=== PATIENT | male | born 1945 | race Caucasian/White ===

== ENCOUNTER → 2017-12-11 10:38 | Outpatient (CLI) | payer MEDICARE, SELFPAY ==
--- NOTE | 2017-12-11 10:45 | XR_ITS ---
EXAM: XR lumbar spine min 4V HISTORY: ITS.REASON: LOW BACK PAIN ORDERING PHYSICIAN: Bobby Young PATIENT AGE: 72 years COMPARISON: None FINDINGS: Normal alignment. No lytic or blastic change. There is degenerative disc disease at L3-L4, L4-L5, and L5-S1 worse at L4-5 with mild retrolisthesis of L4 approximately 3 mm. There is mild wedging of L1 anteriorly. This is slightly greater along the right lateral aspect of L1. There is mild sclerosis of the SI joints. Mild sclerosis involves L5-S1 facets. IMPRESSION: Degenerative disc disease worse at L4-L5. Mild wedging of L1 age indeterminate. Mild facet arthritic change L5-S1
== END ==
PROVIDERS: PCP Internal Medicine; Visit Provider Internal Medicine
DX: M54.5 Low back pain (principal)
CPT/HCPCS: 72110

== ENCOUNTER → 2019-03-01 15:09 | Outpatient (CLI) | payer MEDICARE, SELFPAY ==
--- NOTE | 2019-03-01 15:15 | XR_ITS ---
XR chest 2V HISTORY: ITS.REASON: FEVER..COUGH ORDERING PHYSICIAN: Bobby Young PATIENT AGE: 73 years COMPARISON: None FINDINGS: The cardiomediastinal silhouette and pulmonary vascularity are within normal limits. Right hemidiaphragm is elevated with atelectatic changes in the right middle lobe. Left lung is clear. No acute bony findings. IMPRESSION: Elevated right hemidiaphragm with right middle lobe atelectasis
== END ==
PROVIDERS: PCP Internal Medicine; Visit Provider Internal Medicine
DX: R50.9 Fever, unspecified (principal); R05 Cough
CPT/HCPCS: 71046

== ENCOUNTER → 2019-04-13 14:36 | Outpatient (CLI) | payer MEDICARE, SELFPAY ==
--- NOTE | 2019-04-13 14:45 | XR_ITS ---
XR chest 2V HISTORY: Follow-up pneumonia ITS.REASON: S/P PNEUMONIA ORDERING PHYSICIAN: Bobby Young PATIENT AGE: 73 years COMPARISON: 03/01/2019 FINDINGS: The cardiomediastinal silhouette and pulmonary vascularity are within normal limits. Atelectatic changes remain in the right middle lobe with elevated right hemidiaphragm.. No acute bony abnormalities. IMPRESSION: Persistent right middle lobe volume loss with elevated hemidiaphragm. CT with contrast may be of further value to exclude central obstructing lesion
== END ==
PROVIDERS: PCP Internal Medicine; Visit Provider Internal Medicine
DX: J18.9 Pneumonia, unspecified organism (principal)
CPT/HCPCS: 71046

== ENCOUNTER → 2019-04-18 10:21 | Outpatient (CLI) | payer MEDICARE, SELFPAY ==
[2019-04-18 10:42] LABS: Blood Urea Nitrogen 12 mg/dL (7-18); Creatinine,Serum 1.28 mg/dL (0.70-1.30); Estimated Glomerular Filt Rate 55 ml/min (>60); GFR (African American) 66 ML/MIN (>60)
--- NOTE | 2019-04-18 11:10 | CT_ITS ---
CT chest w con HISTORY: ITS.REASON: RT MIDDLE LOBE LUNG COLLAPSE ORDERING PHYSICIAN: Bobby Young PATIENT AGE: 73 years COMPARISON: 04/13/2019 TECHNIQUE: Axial images obtained following the administration of 75 mL of Optiray 350 . Sagittal, and coronal reformatted images are also generated and reviewed. All CT scans at the facility use one or more dose reduction, viz: automated exposure control, ma/kV adjustment per patient size (including targeted exams where dose is matched to indication, i.e. head), or iterative reconstruction technique. FINDINGS: No mediastinal or hilar mass is evident. There is moderate thickening of the pericardium measuring up to 2.4 cm consistent with pericardial effusion. No evidence of aortic aneurysm or dissection or central pulmonary embolus. The right hemidiaphragm is elevated with atelectatic changes noted in the right middle lobe. No central obstructing lesion is identified. There is some mild bronchial thickening noted in the right middle lobe bronchi. There is a small air cyst in the right lung base posteriorly at 7 mm. There is a 5 mm nodule along the posterior aspect of the right major fissure centrally with an additional 5 mm nodule noted just medial to this region along the major fissure. These are probably benign. A 4 mm nodule present in the left upper lobe medially nonspecific. There is a 6 mm nodule along the left major fissure superiorly. Calcified nodule present in the left upper lobe posteriorly. There is an additional noncalcified 6 mm nodule in the superior segment of left lower lobe and there is a 4 mm noncalcified nodule in the lingula laterally. IMPRESSION: 1. Moderate-sized pericardial effusion. 2. Atelectatic changes of the right middle lobe with mild bronchial thickening of the right middle lobe bronchi. 3. Multiple bilateral pulmonary nodules from 4 to 6 mm as described above. Most of these are along the fissure and may represent fissural lymph nodes. Recommend 6 month follow-up.
== END ==
PROVIDERS: PCP Internal Medicine; Visit Provider Internal Medicine
DX: J98.19 Other pulmonary collapse (principal)
CPT/HCPCS: 36415; 71260; 82565; 84520; Q9967

== ENCOUNTER → 2019-05-03 12:54 | Outpatient (CLI) | payer MEDICARE, SELFPAY ==
--- NOTE | 2019-05-03 13:06 | CA_ITS ---
PROCEDURE: 2-D M-mode and color Doppler study INDICATIONS FOR THE TEST: Chest pain COPD Heart Murmur Tobacco Smoking+ Palpitations Fatigue Syncope Edema Hypertension Diabetes Mellitus+ Rheumatic Fever SOB+FUENTES Obesity Hyperlipidemia Family History HD Additional History PATIENT INFORMATION HEIGHT: 71 WEIGHT:178 GENDER: Male B/P: 2-D/M-MODE INTERPRETATION: 2-D MEASUREMENTS OBSERVED VALUES IN CMS Right Ventricular Dimension (RVDd) 3.0 Interventricular Septum (Thickness)(IVsd) 1.1 Left Ventricular Internal Dimensions(LVIDd) 4.5 Left Ventricular Posterior Wall (Thickness)(LVPWd) 0.9 Aortic Root 3.7 Aortic Cusp Separation 2.0 Left Atrial Dimensions (LAD) 4.1 2D 1. Left atrium is mildly enlarged, left ventricle is normal size, there is mild qualitative concentric left ventricular hypertrophy, visually estimated ejection fraction 55% with no regional wall motion abnormality. 2. The right atrium and ventricle are mildly enlarged with normal contractility. 3. The aortic valve is minimally thickened and fibrosed. 4. The mitral and tricuspid valve are grossly normal. 5. The pulmonic valve is poorly present. 6. There is moderate size circumferential pericardial effusion, there is organized thrombus material seen in the pericardial effusion . DOPPLER INTERROGATION: Doppler interrogation of the aortic, mitral and tricuspid presence of mild mitral and tricuspid regurgitation, tricuspid regurgitation jet velocity is inadequate for calculation of the right ventricular systolic pressure, grade 1 diastolic dysfunction seen without tissue Doppler evidence of raised left atrial pressure. Inferior vena cava is not well visualized. The mitral and tricuspid inflow velocities not suggestive of raised intrapericardial pressure. CONCLUSION: 1. Mildly enlarged left atrium, normal left ventricular size, mild qualitative concentric left ventricular hypertrophy visually estimated ejection fraction 55% with no regional wall motion abnormality, grade 1 diastolic dysfunction seen without tissue Doppler evidence of raised left atrial pressure. 2. Mild mitral and tricuspid regurgitation 3. Moderate-sized circumferential pericardial effusion noted as described above, without obvious Doppler evidence of raised intrapericardial pressure. Inferior vena cava is not well visualized.
== END ==
PROVIDERS: PCP Internal Medicine; Visit Provider Internal Medicine
DX: I31.3 Pericardial effusion (noninflammatory) (principal)
CPT/HCPCS: 93306

== ENCOUNTER → 2019-08-11 17:54 | Outpatient (CLI) | payer MEDICARE, SELFPAY ==
[2019-08-11 18:51] LABS: Basophils # 0.1 K/mm3 (0-0.2); Eosinophils # 0.2 K/mm3 (0.0-0.4); Eosinophils % 3.9 % (0.1-12.0); Hematocrit 45.9 % (42.0-52.0); Hemoglobin 14.6 g/dL (14.1-18.0); Lymphocytes # 1.6 K/mm3 (0.7-4.5); Lymphocytes % 26.4 % (10-50); Mean Corpuscular HGB Conc 31.8 g/dL (31.8-35.4); Mean Corpuscular Hemoglobin 29.9 pg (27.0-31.2); Mean Platelet Volume 8.4 fl (7.4-10.4); Monocytes # 0.4 K/mm3 (0.1-1.0); Monocytes % 6.7 % (1.7-9.3); Neutrophils # 3.8 K/mm3 (1.8-7.8); Platelet Count 362 K/mm3 (142-424); Red Blood Count 4.88 M/mm3 (4.60-6.20); Red Cell Distribution Width 13.5 % (11.5-17.5); White Blood Count 6.1 K/mm3 (4.8-10.8)
[2019-08-11 19:08] LABS: Alanine Aminotransferase 17 U/L (12-78); Albumin Level 3.8 gm/dL (3.4-5.0); Albumin/Globulin Ratio 1.4 (1.1-1.8); Alkaline Phosphatase 72 U/L (46-116); Anion Gap 11.3 mEq/L (5-15); Aspartate Amino Transferase 17 U/L (15-37); Bilirubin,Total 0.7 mg/dL (0.2-1.0); Blood Urea Nitrogen 12 mg/dL (7-18); Carbon Dioxide 30 mmol/L (21.0-32.0); Chloride 103 mmol/L (98-107); Creatinine,Serum 1.35 mg/dL (0.70-1.30); Estimated Glomerular Filt Rate 52 ml/min (>60); GFR (African American) 63 ML/MIN (>60); Globulin 2.7 gm/dl (1.3-3.2); Glucose 185 mg/dL (74-106); Potassium 3.3 mmoL/L (3.5-5.1); Sodium 141 mmol/L (136-145); T4 (Thyroxine) 8.8 ug/dl (4.7-13.3); Thyroid Stimulating Hormone 4.55 uIU/ml (0.358-3.740); Total Protein,Serum 6.5 gm/dL (6.4-8.2)
[2019-08-13 12:26] LABS: PSA, Free 0.12 ng/mL; Prostate Specific Ag 0.4 ng/mL (0.0-4.0); Vitamin D 25 Hydroxy 23.3 ng/mL (30.0-100.0)
== END ==
PROVIDERS: Visit Provider Nurse Practitioner Family
DX: Z00.00 Encounter for general adult medical examination without abnormal findings (principal); R53.83 Other fatigue; N40.0 Benign prostatic hyperplasia without lower urinary tract symptoms; E11.9 Type 2 diabetes mellitus without complications; R60.0 Localized edema; E55.9 Vitamin D deficiency, unspecified
CPT/HCPCS: 80053; 82652; 84153; 84154; 84436; 84443; 85025

== ENCOUNTER → 2019-12-07 14:29 | Outpatient (CLI) | payer MEDICARE, BC, SELFPAY ==
--- NOTE | 2019-12-07 14:33 | XR_ITS ---
PROCEDURE: XR CHEST 2V CLINICAL HISTORY: SOA COMPARISON: CHESTW CT chest w con from 04/18/2019 FINDINGS: The cardiomediastinal silhouette and pulmonary vascularity are within normal limits. The right hemidiaphragm is elevated with atelectatic change in the right lung base and bowel interposition the right. No lobar consolidation or collapse. The No acute bony abnormalities. IMPRESSION: Elevated right hemidiaphragm with right basilar atelectasis Dictated by: Randy Su MD 12/07/2019 15:10 Electronically signed by Randy Su MD in [place] 12/07/2019 15:10
== END ==
PROVIDERS: PCP Emergency Medicine; Visit Provider Nurse Practitioner Family
DX: R06.02 Shortness of breath (principal)
CPT/HCPCS: 71046

== ENCOUNTER 2020-09-02 11:49 | Observation (INO) | payer MEDICARE, BC, SELFPAY ==
--- NOTE | 2020-09-02 11:44 | ECG_ITS ---
APPROVED REPORT Exam: Resting ECG HR:55 bpm ECG Measurements Heart Rate 55 AXES ID 176 P 56 QRSd 94 QRS -58 QT 428 T 8 QTc 409 Conclusion Sinus bradycardia Left axis deviation,LAHB Low voltage QRS Nonspecific ST and T wave abnormality Abnormal ECG Electronically signed by : Bobby Young, 09/07/2020 11:34:54
[2020-09-02 11:54] VITALS: BP 134/71; PULSE 54; RESP 17; TEMP 36.6; O2SAT 98; BMI 24.0
--- NOTE | 2020-09-02 11:56 | XR_ITS ---
PROCEDURE: XR CHEST 2V CLINICAL HISTORY: CHEST PAIN COMPARISON: CT CHESTW CT chest w con from 04/18/2019 CR XR CHEST 2V from 12/07/2019 FINDINGS: The cardiomediastinal silhouette and pulmonary vascularity are within normal limits. The lungs are clear without infiltrates, suspicious nodules, or pleural effusions. 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 There is minimal right basilar atelectasis or scarring. No acute bony abnormalities. IMPRESSION: No acute findings. Dictated by: Dr. Milton Kaur MD 09/02/2020 14:42 Dr. Milton Kaur MD in [place] 09/02/2020 14:42
--- NOTE | 2020-09-02 12:02 | HMH.EDCP ---
ED Disposition Clinical Impression: Atypical chest pain Diabetes Qualifiers: Diabetes mellitus type: type 1 Diabetes mellitus complication status: without complication Qualified Code(s): E10.9 - Type 1 diabetes mellitus without complications Disposition: Admitted As Inpatient Condition on Discharge: Fair - Critical Care Critical Care Time: No Attestation: On , the high probability of a clinically significant, sudden or life threatening deterioration of the following system(s) required my full and direct attention, intervention and personal management. The time I documented below is in addition to time spent performing reported procedures but includes the following listed in this critical care notation. Medical Decision Making - Medical Records Medical records reviewed: Yes: I reviewed the patient's medical records. - Richard Inquiry Pt receiving controlled substance: No Vital Signs: 09/02/20 11:54 09/02/20 12:58 Temperature 97.8 F Temperature Source Oral Pulse Rate [Right Radial] 54 L 59 L Respiratory Rate 17 18 Blood Pressure [Right Arm] 134/71 125/56 L Blood Pressure Mean [Right Arm] 92 79 Blood Pressure Source [Right Arm] Automatic Cuff Blood Pressure Position [Right Arm] Sitting 02 Sat by Pulse Oximetry 98 97 Oxygen Delivery Method Room Air - Lab Data Lab Results 09/02/20 11:55: WBC 13.5 H, RBC 5.09, Hgb 15.2, Hct 46.0, MCV 90.3, MCH 29.9, MCHC 33.1, RDW 13.9, Plt Count 370, MPV 7.6, Neut % (Auto) 81.6 H, Lymph % (Auto) 12.6, [place] % (Auto) 4.7, Eos % (Auto) 0.6, Baso % (Auto) 0.6, Neut # (Auto) 11.0 H, Lymph # (Auto) 1.7, [place] # (Auto) 0.6, Eos # (Auto) 0.1, Baso # (Auto) 0.1 09/02/20 11:55: Sodium 137, Potassium 3.0 L, Chloride 97 L, Carbon Dioxide 31 H, Anion Gap 12.0, BUN 17, Creatinine 1.30 H, Estimated Creat Clear 54, Estimated GFR 54 L, Est GFR ( Amer) 65, Glucose 172 H, Calcium 9.6, Total Bilirubin 0.6, AST 31, ALT 16, Alkaline Phosphatase 87, Troponin I < 0.01, Total Protein 7.1, Albumin 4.2, Globulin 2.9, Albumin/Globulin Ratio 1.4 09/02/20 11:55: NT-Pro-B Natriuret Pep 134 09/02/20 11:55: PT 10.8, INR 0.97, APTT 23.6 Result diagrams: 09/02/20 11:55 09/02/20 11:55 Orders (Tests/Meds): ED MEDICATIONS Generic Name Dose Route Start Last Admin Trade Name Freq PRN Reason Stop Dose Admin Nitroglycerin 0.4 mg 09/02/20 12:01 Nitroglycerin 0.4mg Sl Tablet SL 10/02/20 12:00 Q5MINP PRN Chest Pain Discontinued Medications Generic Name Dose Route Start Last Admin Trade Name Freq PRN Reason Stop Dose Admin Aspirin 324 mg 09/02/20 11:57 09/02/20 12:00 Aspirin 81mg Chewable Tablet PO 09/02/20 11:58 324 mg ONCE ONE Administration ORDERS Category Date Time Status XR chest 2V Stat Exams 09/02/20 11:56 Taken Covid-19 IgG/IgM ([facility]) Stat Lab 09/02/20 12:55 Ordered Troponin I Q3H Lab 09/02/20 15:00 Ordered Troponin I Q3H Lab 09/02/20 18:00 Ordered - ECG Data Tracing #1 Bradycardic rate of 55 bpm. Normal MO interval of 176 ms. Normal QTC. For interpretation was sinus bradycardia, left axis deviation, nonspecific ST changes ECG initial impression date: 09/02/20 ECG initial impression time: 11:46 - Reevaluation(s) Time: 13:08 Reevaluation #1: Reevaluation, patient does endorse some chest pain still. Patient is moderate risk for acute coronary syndrome. Patient will be admitted to the hospital for further evaluation and treatment. Medical Decision Narrative: 73-year-old male presented to the emergency department with chest discomfort. Patient is moderate risk for acute coronary syndrome based on heart score. Aspirin and nitroglycerin were administrated. Work-up initiated. Chest Pain HPI - General Chief Complaint: Chest Pain Stated Complaint: Chest Pain Time Seen by Provider: 09/02/20 12:00 Mode of Arrival: Ambulatory Limitations: No Limitations Description of Symptoms (Recalled from ER Triage Doc. by RN): PT JOELLE
[2020-09-02 12:14] LABS: Basophils # 0.1 K/mm3 (0-0.2); Basophils % 0.6 % (0.1-2.0); Eosinophils # 0.1 K/mm3 (0.0-0.4); Eosinophils % 0.6 % (0.1-12.0); Hemoglobin 15.2 g/dL (14.1-18.0); Lymphocytes # 1.7 K/mm3 (0.7-4.5); Lymphocytes % 12.6 % (10-50); Mean Corpuscular HGB Conc 33.1 g/dL (31.8-35.4); Mean Corpuscular Hemoglobin 29.9 pg (27.0-31.2); Mean Corpuscular Volume 90.3 fl (80-94); Mean Platelet Volume 7.6 fl (7.4-10.4); Monocytes # 0.6 K/mm3 (0.1-1.0); Monocytes % 4.7 % (1.7-9.3); Neutrophils % 81.6 % (37.0-80.0); Platelet Count 370 K/mm3 (142-424); Red Blood Count 5.09 M/mm3 (4.60-6.20); Red Cell Distribution Width 13.9 % (11.5-17.5); White Blood Count 13.5 K/mm3 (4.8-10.8)
[2020-09-02 12:15] LABS: Chloride 97 mmol/L (98-107); Sodium 137 mmol/L (136-145)
[2020-09-02 12:18] LABS: Alanine Aminotransferase 16 U/L (12-78); Albumin Level 4.2 g/dl (3.5-5.0); Albumin/Globulin Ratio 1.4 (1.1-1.8); Alkaline Phosphatase 87 U/L (38-126); Aspartate Amino Transferase 31 U/L (17-59); Bilirubin,Total 0.6 mg/dl (0.2-1.3); Blood Urea Nitrogen 17 mg/dl (9-20); Calcium 9.6 mg/dl (8.4-10.2); Carbon Dioxide 31 mmol/L (22.0-30.0); Creatinine Clearance Estimated 54 mL/min (50-200); Estimated Glomerular Filt Rate 54 ml/min (>60); GFR (African American) 65 ML/MIN (>60); Globulin 2.9 g/dL (1.3-3.2); Glucose 172 mg/dl (74-100); Total Protein,Serum 7.1 g/dl (6.3-8.2)
[2020-09-02 12:28] LABS: NT Pro Brain Natriuretic Pep. 134 pg/mL (0-450); Prothrombin Time 10.8 seconds (9.4-11.8)
[2020-09-02 12:29] LABS: Activated Partial Thrombo Time 23.6 seconds (23.6-34.0); INR 0.97 (0.9-1.1)
[2020-09-02 12:31] LABS: Troponin I < 0.01 ng/ml (0.00-0.034)
[2020-09-02 12:58] VITALS: BP 125/56; PULSE 59; RESP 18; O2SAT 97
--- NOTE | 2020-09-02 13:05 | PC.NURSE ---
dr shyanne patterson
[2020-09-02 13:25] LABS: Coronavirus 19 IgG Antibody Negative (Negative); Coronavirus 19 IgM Antibody Negative (Negative)
[2020-09-02 14:20] VITALS: BP 132/78; PULSE 78; RESP 16; TEMP 36.6; O2SAT 98
[2020-09-02 14:23] VITALS: BP 109/61; PULSE 54; RESP 19; TEMP 36.7; O2SAT 97; BMI 24.3
--- NOTE | 2020-09-02 14:34 | HMH.HP ---
*Admission Date: 09/02/20 *Chief complaint: chest pain *History of present illness: This is a 73-year-old male presented to the emergency department with chest discomfort. Patient states that the pain started at about 5:00 this morning when he woke up. Still in nagging and located under his sternum. Patient states that it has persisted since then and increased in intensity. Feels like it is radiating down both arms. He has been nauseous and also vomited this morning. Patient did not take anything for the pain. No associated palpitations, difficulty breathing or hemoptysis. He is not having any fevers or chills. No headache or change in vision. No abdominal pain or diarrhea. from er narrative I spoke with ER admitting First troponin was negative EKG unimpressive Admitted as rule out. Marginal historian sees Dr Zamarripa Has had echo but no interventional studies [facility] History Medical History: Reports:: Asthma, BPH, Cancer, Congestive Heart Failure, Diabetes Mellitus Type 2, Gastroesophageal Reflux Disease(GERD), Kidney Stones, Myocardial Infarction Denies:: Atrial Fibrillation, Cerebrovascular Accident, Hyperlipidemia, Hypertension, Renal Disease *Have you ever received a pneumonia vaccine?: Yes *Have you received a flu vaccine this season?: No Other Medical History: Reports: Arthritis. Denies: Hypothyroidism, Thyroid Disease Other Surgeries: Yes: No Previous Surgery - *Social History Smoking Status: Never smoker Tobacco Type: smokeless tobacco Alcohol Intake: current Alcohol Intake Frequency:: a few times a month Substance Use Type: denies use *Occupational Status:: retired Household Members: none *Travel in the last 8 weeks: None Family Hx:: Cancer, Coronary Artery Disease Review of Systems - Constitutional Denies anorexia, Denies excessive sweating, Denies weakness - Eyes Denies change in vision - ENT Denies abnormal hearing, Denies dizziness - *Cardiovascular Reports chest pain, Denies shortness of breath with activity, Denies irregular heart rhythm, Denies radiating jaw, neck or arm pain - *Respiratory Denies chest congestion - *Gastrointestinal Denies abdominal pain - *Genitourinary Denies difficulty urinating - *Musculoskeletal Denies abnormal walking - Integumentary/Breasts Denies yellowing of the skin - *Neurologic Denies abnormal walking, Denies abnormal speech, Denies headache(s) - Psychiatric Denies change in appetite - Endocrine Denies excessive sweating, Denies rapid, pounding, or irregular heartbeat Meds Home Medications Medication Instructions Recorded Confirmed Type furosemide 40 mg tablet 40 mg PO DAILY PRN 30 Days #30 tab 08/11/19 09/02/20 Rx naproxen 500 mg tablet 500 mg PO BID PRN 30 Days #60 tab 08/11/19 09/02/20 Rx Cholecalciferol (Vitamin D3) 50,000 unit PO QWEEK 09/02/20 09/02/20 History [Vitamin D3 50,000 unit Cap] Cholecalciferol (Vitamin D3) 2,000 unit PO DAILY 09/02/20 09/02/20 History [Vitamin D3] Glimepiride See Rx Instructions .ROUTE .COMPLEX 09/02/20 09/02/20 History Isosorbide Mononitrate [Imdur 30mg See Rx Instructions .ROUTE .COMPLEX 09/02/20 09/02/20 History ER tablet] Allergies Allergy/AdvReac Type Severity Reaction Status Date / Time No Known Allergies Allergy Verified 09/02/20 11:56 Exam Vital signs and Labs for Last 24 Hours: Temp Pulse Resp BP Pulse Ox 98.1 F 54 L 19 109/61 L 97 09/02/20 14:23 09/02/20 14:23 09/02/20 14:23 09/02/20 14:23 09/02/20 14:23 Laboratory Results - last 24 hr 09/02/20 11:55: WBC 13.5 H, RBC 5.09, Hgb 15.2, Hct 46.0, MCV 90.3, MCH 29.9, MCHC 33.1, RDW 13.9, Plt Count 370, MPV 7.6, Neut % (Auto) 81.6 H, Lymph % (Auto) 12.6, [place] % (Auto) 4.7, Eos % (Auto) 0.6, Baso % (Auto) 0.6, Neut # (Auto) 11.0 H, Lymph # (Auto) 1.7, [place] # (Auto) 0.6, Eos # (Auto) 0.1, Baso # (Auto) 0.1 09/02/20 11:55: Sodium 137, Potassium 3.0 L, Chloride 97 L, Carbon Dioxide 31 H, Anion Gap 12.0,
--- NOTE | 2020-09-02 14:48 | HMH.PHAVTE ---
[facility] Pharmacy VTE Monitoring - Patient Demographics Admission date: 09/02/20 Report Date: 09/02/20 Time: 14:48 Allergies/Adverse Reactions: Patient Allergies No Known Allergies Allergy (Verified 09/02/20 11:56) Height: 1.8 m Weight: 79.18 kg Patient Problems: Current Active Problems Atypical chest pain (Acute) Diabetes (Acute) - VTE Risk Labs: VTE Related Lab Results Hgb 15.2 g/dL (14.1-18.0) 09/02/20 11:55 Hct 46.0 % (42.0-52.0) 09/02/20 11:55 Plt Count 370 K/mm3 (142-424) 09/02/20 11:55 PT 10.8 seconds (9.4-11.8) 09/02/20 11:55 INR 0.97 (0.9-1.1) 09/02/20 11:55 APTT 23.6 seconds (23.6-34.0) 09/02/20 11:55 BUN 17 mg/dl (9-20) 09/02/20 11:55 Creatinine 1.30 mg/dl (0.66-1.25) H 09/02/20 11:55 Estimated Creat Clear 54 mL/min (50-200) 09/02/20 11:55 Was VTE Risk Assessment Performed: Yes VTE Score: 5 VTE Risk Level: Low Risk - Prophylaxis VTE Prophylaxis Ordered?: Yes Types of VTE Prophylaxis: TEDS Knee High Location of Applied Device: Bilateral Lower Extremeties
[2020-09-02 15:55] LABS: Troponin I < 0.01 ng/ml (0.00-0.034)
[2020-09-02 16:00] VITALS: BP 115/64; PULSE 58; RESP 18; RESP 20; TEMP 36.7; O2SAT 96
--- NOTE | 2020-09-02 16:56 | PC.NURSE ---
Paged Levon for consult on this pt. Stated they would see him in the morning.
[2020-09-02 17:09] LABS: POC Glucose,Bedside 142 (70-110)
--- NOTE | 2020-09-02 17:20 | PC.NURSE ---
PT STATES THAT HE WILL HAVE SOMEONE BRING IN HOME MEDICATIONS
--- NOTE | 2020-09-02 18:12 | PC.NURSE ---
PT HOME MEDICATIONS PLACED IN MED DRAWER, PT STATES THAT HE IS NOT HAVING CHEST PAIN AT THIS TIME BUT THAT HIS BACK HAS BEEN HURTING AND THAT HE SUFFERS FROM CHRONIC BACK PAIN, AT THIS TIME HE IS SITTING ON THE SIDE OF THE BED EATING, HE IS TO BE NPO AT MIDNIGHT FOR CONSULT, TOLERATING RA WELL, NO C/O SOA, PT DOES NOT APPEAR TO BE IN ANY DISTRESS AT THIS TIME, TOLERATING DIET WELL, DENIES N/V/D, HAS AMBULATED TO RESTROOM *1, TOLERATED WELL, WILL CONTINUE TO MONITOR.
[2020-09-02 18:44] LABS: Troponin I < 0.01 ng/ml (0.00-0.034)
[2020-09-02 20:00] VITALS: BP 115/60; PULSE 56; PULSE 57; PULSE 60; RESP 18; TEMP 36.8; O2SAT 94
[2020-09-02 20:30] LABS: POC Glucose,Bedside 191 (70-110)
[2020-09-03] VITALS (21 sets, daily range): BP systolic 95–140; BP diastolic 53–87; PULSE 50–69; RESP 14–18; TEMP 36.1–36.9; O2SAT 92–100; BMI 25.1; BMI 25.0
--- NOTE | 2020-09-03 | IR_ITS ---
APPROVED REPORT Patient Location: Inpatient [facility] Attendant: LACHELLE Andre RT (R) PROCEDURES Left heart catheterization Left ventriculogram Selective coronary angiogram INDICATION Unstable angina Informed consent was obtained prior to the procedure. COMPLICATIONS none Estimated Blood Loss: less than 10 mls TECHNIQUE One percent lidocaine used to anesthetize the right anterior aspect of the wrist. The right radial artery was accessed via the Seldinger technique. A 6 [place] sheath was placed in the right radial artery. 2.5 mg of verapamil, 800 mcg of nitroglycerin, 1mg Lidocaine and 5000 U Heparin were given through the arterial sheath. The trap catheter was also used to perform left heart catheterization, left ventriculogram and selective coronary angiogram. At the end of the procedure the sheath was removed good hemostasis was achieved using Traclet band, patient was transferred to the postop holding area in stable condition. ANGIOGRAPHIC RESULTS The left main artery Is mild 10% luminal irregularities The left anterior descending artery Has an ostial 30% stenosis proximal 30% stenosis mid vessel 30 to 40% stenosis in an area that is 2 mm in diameter. The LAD itself is small and does not supply the apex. The circumflex artery Small nondominant normal The right coronary artery Is a large dominant vessel with a proximal 20 to 30% stenosis mid vessel tandem 30% stenoses distal 10 to 20% stenoses. The posterior descending artery has a mid vessel 40 to 50% stenosis and a 2.5 mm PDA The MANNING ventriculogram reveals Normal 65% The left ventricular end-diastolic pressure 10 mmHg IMPRESSION Coronary artery disease as described above Normal ejection fraction Mildly elevated LVEDP PLAN 1. Medical management 2. Should patient continue with recalcitrant angina pectoris refractory to standard medical therapy I would consider performing an FFR to the PDA. Ideally this vessel should respond well to medical management Electronically signed by : Micheal Dos Santos, 09/03/2020 11:14:35
--- NOTE | 2020-09-03 04:08 | PC.NURSE ---
Pt A&OX4 lungs diminished throughout. pt c/o back pain medicated per JAN. Pt NPO @ [facility] for cardio consult. pt has ambulates to [facility] [place] on tele
[2020-09-03 05:11] LABS: POC Glucose,Bedside 124 (70-110)
[2020-09-03 07:14] LABS: Basophils # 0.1 K/mm3 (0-0.2); Basophils % 0.9 % (0.1-2.0); Eosinophils # 0.3 K/mm3 (0.0-0.4); Eosinophils % 4.7 % (0.1-12.0); Hematocrit 36.7 % (42.0-52.0); Lymphocytes # 1.3 K/mm3 (0.7-4.5); Lymphocytes % 20.3 % (10-50); Mean Corpuscular HGB Conc 34.6 g/dL (31.8-35.4); Mean Corpuscular Volume 89.7 fl (80-94); Mean Platelet Volume 7.4 fl (7.4-10.4); Monocytes # 0.7 K/mm3 (0.1-1.0); Monocytes % 10.9 % (1.7-9.3); Neutrophils # 4.1 K/mm3 (1.8-7.8); Neutrophils % 63.2 % (37.0-80.0); Platelet Count 268 K/mm3 (142-424); Red Cell Distribution Width 14.2 % (11.5-17.5); White Blood Count 6.5 K/mm3 (4.8-10.8)
[2020-09-03 07:17] LABS: Hemoglobin 12.7 g/dL (14.1-18.0)
[2020-09-03 07:19] LABS: Chloride 101 mmol/L (98-107); Sodium 137 mmol/L (136-145)
[2020-09-03 07:22] LABS: Blood Urea Nitrogen 14 mg/dl (9-20); Creatinine Clearance Estimated 67 mL/min (50-200); Estimated Glomerular Filt Rate 65 ml/min (>60); GFR (African American) 79 ML/MIN (>60)
[2020-09-03 07:23] LABS: Anion Gap 7.9 mEq/L (5-15); Carbon Dioxide 31 mmol/L (22.0-30.0); Glucose 119 mg/dl (74-100)
--- NOTE | 2020-09-03 07:27 | HMH.PHAINT ---
home medication reconciliation completed using list from clinic pharmacy
[2020-09-03 07:40] LABS: Potassium 2.9 mmoL/L (3.5-5.1)
--- NOTE | 2020-09-03 07:45 | HMH.CNCARD ---
History of Present Illness Consult date: 09/03/20 Requesting physician: Chip Zamarripa Consult reason: chest pain Chief complaint: chest pain Additional Medical History:: 1. Hypertension 2. Diabetes mellitus, treated for greater than 15 years 3. Marginal historian 4. GERD 5. History of asthma per chart History of present illness: This is a 73-year-old male presented to the emergency department with chest discomfort. Patient states that the pain started at about 5:00 this morning when he woke up. Still in nagging and located under his sternum. Patient states that it has persisted since then and increased in intensity. Feels like it is radiating down both arms. He has been nauseous and also vomited this morning. Patient did not take anything for the pain. No associated palpitations, difficulty breathing or hemoptysis. He is not having any fevers or chills. No headache or change in vision. No abdominal pain or diarrhea. The above per the ER physician Patient relates one other episode of chest discomfort that woke him from sleep approximately 1 month ago that was similar in pain, duration and location. Patient states the chest discomfort resolved after taking sublingual nitroglycerin and in combination with morphine IV. Patient denies any prior history of cardiac issues. He does take blood pressure medication and has been a diabetic for more than 15 years. He is not a good historian. EKG is sinus bradycardia with no acute ST segment changes with left axis deviation and nonspecific ST-T abnormalities. No old tracing for comparison. Troponins are returned normal x3. [facility] History Medical History: Reports:: Asthma, BPH, Cancer, Congestive Heart Failure, Diabetes Mellitus Type 2, Gastroesophageal Reflux Disease(GERD), Kidney Stones, Myocardial Infarction Denies:: Atrial Fibrillation, Cerebrovascular Accident, Hyperlipidemia, Hypertension, MRSA, Renal Disease *Have you ever received a pneumonia vaccine?: Yes *Have you received a flu vaccine this season?: Yes Other Medical History: Reports: Arthritis. Denies: Hypothyroidism, Thyroid Disease Other Surgeries: Yes: No Previous Surgery, Cancer Surgery Amputation: No Fractures: No - *Social History Last grade of school completed: 5th or 6th Smoking Status: Never smoker Tobacco Type: smokeless tobacco Alcohol Intake: never Alcohol Intake Frequency:: a few times a month Substance Use Type: denies use *Occupational Status:: retired Housing: house Household Members: none *Travel in the last 8 weeks: None Family Hx:: Diabetes, Heart Attack, Hyperlipidemia, Hypertension, Stroke Meds Home Medications Medication Instructions Recorded Confirmed Type furosemide 40 mg tablet 40 mg PO DAILY PRN 30 Days #30 tab 08/11/19 09/02/20 Rx Cholecalciferol (Vitamin D3) 50,000 unit PO WEEKLY 09/02/20 09/03/20 History [Vitamin D3 50,000 unit Cap] Cholecalciferol (Vitamin D3) 2,000 unit PO DAILY 09/02/20 09/02/20 History [Vitamin D3] Glimepiride 2 mg PO DAILY 09/02/20 09/03/20 History Isosorbide Mononitrate [Imdur 30mg 30 mg PO DAILY 09/02/20 09/03/20 History ER tablet] Naproxen Sodium [Naproxen Sodium 500 mg PO DAILY 09/03/20 09/03/20 History Cr] Allergies Allergy/AdvReac Type Severity Reaction Status Date / Time No Known Allergies Allergy Verified 09/02/20 11:56 Exam Vital signs and Labs for Last 24 Hours: Temp Pulse Resp BP Pulse Ox 97.9 F 62 18 95/53 L 93 L 09/03/20 04:00 09/03/20 04:00 09/03/20 04:00 09/03/20 04:00 09/03/20 04:00 Laboratory Results - last 24 hr 09/02/20 11:55: WBC 13.5 H, RBC 5.09, Hgb 15.2, Hct 46.0, MCV 90.3, MCH 29.9, MCHC 33.1, RDW 13.9, Plt Count 370, MPV 7.6, Neut % (Auto) 81.6 H, Lymph % (Auto) 12.6, [place] % (Auto) 4.7, Eos % (Auto) 0.6, Baso % (Auto) 0.6, Neut # (Auto) 11.0 H, Lymph # (Auto) 1.7, [place] # (Auto) 0.6, Eos # (Auto) 0.1, Baso # (Auto) 0.1 09/02/20 11:55: Sodium 137, Potassium 3.0 L, Chloride 97 L, Carbon Dioxide
[2020-09-03 08:50] LABS: Chol/HDL Ratio 4.7 (1-3.5); Cholesterol 135 mg/dl (140-200); HDL Cholesterol 29 mg/dl (40-60); Triglycerides 194 mg/dl (30-150); VLDL Cholesterol 39 mg/dL (0-40)
[2020-09-03 12:41] LABS: POC Glucose,Bedside 127 (70-110)
--- NOTE | 2020-09-03 13:05 | P.PN_ITS ---
Internal Medicine - PN: Subj *Date: 09/03/20 *Time: 13:05 Interval history: enzymes negative uneventful night planning [facility] later today Exam Vital signs and Labs for Last 24 Hours: Temp Pulse Resp BP Pulse Ox 98.4 F 53 L 18 110/66 100 09/03/20 08:00 09/03/20 12:05 09/03/20 12:05 09/03/20 12:05 09/03/20 12:05 Laboratory Results - last 24 hr 09/02/20 11:55: SARS-CoV-2 IgG Ab (Rapid) Negative, SARS-CoV-2 IgM Ab (Rapid) Negative 09/02/20 15:20: Troponin I < 0.01 09/02/20 16:59: POC Glucose 142 H 09/02/20 18:10: Troponin I < 0.01 09/02/20 20:17: POC Glucose 191 H 09/03/20 05:04: POC Glucose 124 H 09/03/20 06:40: WBC 6.5 D, RBC 4.10 L, Hgb 12.7 L D, Hct 36.7 L, MCV 89.7, MCH 31.0, MCHC 34.6, RDW 14.2, Plt Count 268 D, MPV 7.4, Neut % (Auto) 63.2, Lymph % (Auto) 20.3, [place] % (Auto) 10.9 H, Eos % (Auto) 4.7, Baso % (Auto) 0.9, Neut # (Auto) 4.1, Lymph # (Auto) 1.3, [place] # (Auto) 0.7, Eos # (Auto) 0.3, Baso # (Auto) 0.1 09/03/20 06:40: Sodium 137, Potassium 2.9 L*, Chloride 101, Carbon Dioxide 31 H, Anion Gap 7.9, BUN 14, Creatinine 1.10, Estimated Creat Clear 67, Estimated GFR 65, Est GFR ( Amer) 79 D, Glucose 119 H D 09/03/20 06:40: Triglycerides 194 H, Cholesterol 135 L, LDL Cholesterol Direct 65.90 L, VLDL Cholesterol 39, HDL Cholesterol 29 L, Cholesterol/HDL Ratio 4.7 H 09/03/20 12:29: POC Glucose 127 H I & O for Last 24 hours: Intake & Output 10/09/01/20 09/02/20 09/03/20 23:59 23:59 23:59 23:59 Intake Total 702 / 702 654 / 654 Balance 702 / 702 654 / 654 Weight 174 lb 9 oz 179 lb 9.6 oz - Constitutional no acute distress - *Routine HEENT Exam Head: Present: normocephalic Eye: Present: EOMI, PERRL ENT: Present: mucous membranes moist - *Routine Neck Exam Present: supple. Absent: lymphadenopathy - *Routine Respiratory Exam Present: CTA bilaterally - *Routine Cardiovascular Exam Present: RRR - *Routine Abdominal Exam Present: soft, normoactive bowel sounds. Absent: tenderness - *Routine Extremities Exam Absent: cyanosis, clubbing, edema - *Routine Skin Exam Present: warm. Absent: rash - *Routine Neurological Exam Present: alert, oriented X3 Assessment and Plan (1) Atypical chest pain Status: Acute Category: Medical Code(s): R07.89 - Other chest pain (2) Diabetes Status: Chronic Qualifiers: Diabetes mellitus type: type 1 Diabetes mellitus complication status: without complication Qualified Code(s): E10.9 - Type 1 diabetes mellitus without complications Category: Medical Code(s): E11.9 - Type 2 diabetes mellitus without complications (3) Neuropathy Status: Chronic Category: Medical Code(s): G62.9 - Polyneuropathy, unspecified (4) Hypokalemia Status: Acute Category: Medical Code(s): E87.6 - Hypokalemia - Assessment and plan all Dx Assessment and Plan for all problems:: run of [facility] [place] later today
[2020-09-03 13:08] LABS: Calcium 8.4 mg/dl (8.4-10.2)
--- NOTE | 2020-09-03 17:36 | HMH.DCSUM ---
General - General Admission date:: 09/02/20 Discharge date: 09/03/20 HPI HPI: This is a 73-year-old male presented to the emergency department with chest discomfort. Patient states that the pain started at about 5:00 this morning when he woke up. Still in nagging and located under his sternum. Patient states that it has persisted since then and increased in intensity. Feels like it is radiating down both arms. He has been nauseous and also vomited this morning. Patient did not take anything for the pain. No associated palpitations, difficulty breathing or hemoptysis. He is not having any fevers or chills. No headache or change in vision. No abdominal pain or diarrhea. from er narrative I spoke with ER admitting First troponin was negative EKG unimpressive Admitted as rule out. 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 The LAD itself is small and does not supply the apex. The circumflex artery Small nondominant normal The right coronary artery Is a large dominant vessel with a proximal 20 to 30% stenosis mid vessel tandem 30% stenoses distal 10 to 20% stenoses. The posterior descending artery has a mid vessel 40 to 50% stenosis and a 2.5 mm PDA The [place] ventriculogram reveals Normal 65% The left ventricular end-diastolic pressure 10 mmHg IMPRESSION Coronary artery disease as described above Normal ejection fraction Mildly elevated LVEDP PLAN 1. Medical management 2. Should patient continue with recalcitrant angina pectoris refractory to standard medical therapy I would consider performing an FFR to the PDA. Ideally this vessel should respond well to medical management per cardiology team addendum OK for discharge home later today from Cardiology standpoint. Home meds: Isosorbide mononitrate 30 mg daily Aspirin 81 mg daily Atorvastatin 40 mg daily Furosemide 40 mg daily as needed Recommend PPI for GI protection if patient continues to take naproxen daily. Follow-up in our office in 1 week pt tolerated procedure well cath site w/o swelling or tenderness ready to go home Objective Vital signs: Temp Pulse Resp BP Pulse Ox 98.3 F 68 16 109/75 L 95 09/03/20 16:51 09/03/20 16:51 09/03/20 16:51 09/03/20 16:51 09/03/20 16:51 no acute distress - *Routine HEENT Exam Head: Present: normocephalic Eye: Present: EOMI, PERRL ENT: Present: mucous membranes moist - *Routine Neck Exam Present: supple - *Routine Respiratory Exam Present: CTA bilaterally - *Routine Cardiovascular Exam Present: RRR - *Routine Abdominal Exam Present: soft, normoactive bowel sounds. Absent: tenderness - *Routine Extremities Exam Absent: cyanosis, clubbing, edema - *Routine Skin Exam Present: warm. Absent: rash - Detailed Eye Exam Eyelids: Bilateral normal inspection Results Labs on day of discharge: Labs from last 24 hours 09/03/20 09/03/20 09/03/20 12:29 06:40 06:40 WBC RBC Hgb Hct MCV MCH MCHC RDW Plt Count MPV Neut % (Auto) Lymph % (Auto) [place] % (Auto) Eos % (Auto) Baso % (Auto) Neut # (Auto) Lymph # (Auto) [place] # (Auto) Eos # (Auto) Baso # (Auto) Sodium 137 Potassium 2.9 L* Chloride 101 Carbon Dioxide 31 H Anion Gap 7.9 BUN 14 Creatinine 1.10 Estimated Creat Clear 67 Estimated GFR 65 Est GFR ( Amer) 79 D Glucose 119 H D POC Glucose 127 H Calcium 8.4 D Troponin I Triglycerides 194 H Cholesterol 135 L LDL [place]ol[place]
[2020-09-03 17:53] LABS: POC Glucose,Bedside 164 (70-110)
== END 2020-09-03 18:50 | disposition home or self-care (01) ==
LOC: ER 13:08 → 2ND 14:12
PROVIDERS: Internal Medicine; Physician Assistant; Admitting Provider Internal Medicine Adolescent Medicine; Emergency Provider Emergency Medicine; PCP Nurse Practitioner Family; Visit Provider Emergency Medicine
DX: I25.118 Atherosclerotic heart disease of native coronary artery with other forms of angina pectoris (principal); Z72.0 Tobacco use; I11.0 Hypertensive heart disease with heart failure; I50.9 Heart failure, unspecified; E03.9 Hypothyroidism, unspecified; Z82.49 Family history of ischemic heart disease and other diseases of the circulatory system; Z79.84 Long term (current) use of oral hypoglycemic drugs; E87.6 Hypokalemia; Z79.899 Other long term (current) drug therapy; E11.42 Type 2 diabetes mellitus with diabetic polyneuropathy
CPT/HCPCS: 36415; 71046; 80048; 80053; 80061; 82962; 83880; 84484; 85025; 85610; 85730; 86328; 93005; 93458; 99152; 99283; C1725; C1769; G0378; J1644; Q9967

== ENCOUNTER → 2020-09-10 13:51 | Outpatient (CLI) | payer MEDICARE, BC, SELFPAY ==
[2020-09-10 16:21] LABS: Chloride 99 mmol/L (98-107); Potassium 4.5 mmoL/L (3.5-5.1); Sodium 139 mmol/L (136-145)
[2020-09-10 16:24] LABS: Anion Gap 12.5 mEq/L (5-15); Blood Urea Nitrogen 12 mg/dl (9-20); Carbon Dioxide 32 mmol/L (22.0-30.0); Estimated Glomerular Filt Rate 49 ml/min (>60); GFR (African American) 60 ML/MIN (>60)
[2020-09-10 16:25] LABS: Calcium 9.1 mg/dl (8.4-10.2); Glucose 103 mg/dl (74-100)
== END ==
PROVIDERS: Visit Provider Urology
DX: E78.5 Hyperlipidemia, unspecified (principal); I10 Essential (primary) hypertension; I25.10 Atherosclerotic heart disease of native coronary artery without angina pectoris
CPT/HCPCS: 36415; 80048

== ENCOUNTER → 2020-11-14 18:29 | Outpatient (CLI) | payer MEDICARE, BC, SELFPAY ==
[2020-11-14 18:47] LABS: Basophils # 0.3 K/mm3 (0-0.2); Basophils % 3.4 % (0.1-2.0); Eosinophils # 0.3 K/mm3 (0.0-0.4); Eosinophils % 3.2 % (0.1-12.0); Hemoglobin 15.4 g/dL (14.1-18.0); Lymphocytes # 2.2 K/mm3 (0.7-4.5); Lymphocytes % 28.1 % (10-50); Mean Corpuscular HGB Conc 34.1 g/dL (31.8-35.4); Mean Corpuscular Hemoglobin 30.3 pg (27.0-31.2); Mean Corpuscular Volume 88.7 fl (80-94); Monocytes # 0.7 K/mm3 (0.1-1.0); Monocytes % 8.6 % (1.7-9.3); Neutrophils # 4.5 K/mm3 (1.8-7.8); Neutrophils % 56.6 % (37.0-80.0); Platelet Count 409 K/mm3 (142-424); Red Blood Count 5.07 M/mm3 (4.60-6.20); Red Cell Distribution Width 15.8 % (11.5-17.5); White Blood Count 7.9 K/mm3 (4.8-10.8)
[2020-11-14 18:55] LABS: Alanine Aminotransferase 51 U/L (12-78); Albumin Level 4.2 g/dl (3.5-5.0); Albumin/Globulin Ratio 1.5 (1.1-1.8); Alkaline Phosphatase 106 U/L (38-126); Anion Gap 13.8 mEq/L (5-15); Aspartate Amino Transferase 33 U/L (17-59); Bilirubin,Total 0.8 mg/dl (0.2-1.3); Blood Urea Nitrogen 15 mg/dl (9-20); Calcium 9.7 mg/dl (8.4-10.2); Carbon Dioxide 34 mmol/L (22.0-30.0); Chloride 94 mmol/L (98-107); Chol/HDL Ratio 3.7 (1-3.5); Cholesterol 159 mg/dl (140-200); Estimated Glomerular Filt Rate 49 ml/min (>60); GFR (African American) 60 ML/MIN (>60); Globulin 2.8 g/dL (1.3-3.2); Glucose 204 mg/dl (74-100); HDL Cholesterol 43 mg/dl (40-60); Potassium 3.8 mmoL/L (3.5-5.1); Sodium 138 mmol/L (136-145); Triglycerides 244 mg/dl (30-150); VLDL Cholesterol 49 mg/dL (0-40)
[2020-11-14 19:11] LABS: Free T4 (Free Thyroxine) 1.59 ng/dl (0.78-2.19)
[2020-11-14 19:26] LABS: Hemoglobin A1C 6.1 % (4.0-6.0)
[2020-11-14 19:26] LABS: Thyroid Stimulating Hormone 6.84 uIU/mL (0.465-4.68)
[2020-11-14 19:33] LABS: Creatinine,Urine Random 109 mg/dL (Not Estab.)
[2020-11-14 19:36] LABS: Microalbumin/Creatinine Ratio 28.1
== END ==
PROVIDERS: PCP Emergency Medicine; Visit Provider Emergency Medicine
DX: E11.9 Type 2 diabetes mellitus without complications (principal); E55.9 Vitamin D deficiency, unspecified; R07.89 Other chest pain; Z79.84 Long term (current) use of oral hypoglycemic drugs
CPT/HCPCS: 80053; 80061; 82043; 82306; 82570; 83036; 84439; 84443; 85025

== ENCOUNTER 2021-02-26 07:37 | Observation (INO) | payer MEDICARE, BC, SELFPAY ==
[2021-02-26] VITALS (10 sets, daily range): BP systolic 108–189; BP diastolic 64–101; PULSE 63–94; RESP 17–19; TEMP 36.4–37.5; O2SAT 90–98; BMI 23.7; BMI 24.3
--- NOTE | 2021-02-26 07:31 | ECG_ITS ---
APPROVED REPORT Exam: Resting ECG HR:66 bpm ECG Measurements Heart Rate 66 AXES TX 190 P 38 QRSd 94 QRS -55 QT 430 T 29 QTc 450 Conclusion Normal sinus rhythm Left axis deviation Low voltage with poor R wave progression, unchanged from prior Abnormal ECG Electronically signed by : Randall Oneill, 02/27/2021 17:36:22
--- NOTE | 2021-02-26 07:46 | XR_ITS ---
PROCEDURE: XR CHEST PORTABLE CLINICAL HISTORY: CP COMPARISON: CT CHESTW CT chest w con from 04/18/2019 CR XR CHEST 2V from 12/07/2019 CR XR CHEST 2V from 09/02/2020 FINDINGS: This is a poor inspiratory effort. 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 There is minimal linear postinflammatory scarring at the right base unchanged the previous chest film 09/02/2020. Otherwise right lung field is clear and left lung zheng clear. Cardiac size is borderline, vascularity is normal. IMPRESSION: Poor inspiration, no definite acute chest pathology Dictated by: Dr. Milton Kaur MD 02/26/2021 08:31 Dr. Milton Kaur MD in [place] 02/26/2021 08:31
--- NOTE | 2021-02-26 07:51 | HMH.EDCP ---
ED Disposition Clinical Impression: Chest pain Qualifiers: Chest pain type: precordial pain Qualified Code(s): R07.2 - Precordial pain Disposition: Admitted as Observation Condition on Discharge: Good - Critical Care Critical Care Time: No Attestation: On , the high probability of a clinically significant, sudden or life threatening deterioration of the following system(s) required my full and direct attention, intervention and personal management. The time I documented below is in addition to time spent performing reported procedures but includes the following listed in this critical care notation. Medical Decision Making - Medical Records Medical records reviewed: Yes: I reviewed the patient's medical records. - Richard Inquiry Pt receiving controlled substance: No Vital Signs: 02/26/21 07:37 02/26/21 08:00 Temperature 97.5 F L Temperature Source Oral Pulse Rate 68 Pulse Rate [Right] 74 Respiratory Rate 18 18 Blood Pressure 178/96 H Blood Pressure [Right Arm] 179/101 H Blood Pressure Mean [Right Arm] 127 Blood Pressure Source Automatic Cuff 02 Sat by Pulse Oximetry 97 96 Oxygen Delivery Method Room Air - Lab Data Lab results reviewed: Yes: I reviewed the patient's lab results. Lab Results 02/26/21 07:39: WBC 9.9, RBC 4.84, Hgb 14.1, Hct 43.8, MCV 90.5, MCH 29.2, MCHC 32.3, RDW 13.8, Plt Count 379, MPV 7.3 L, Neut % (Auto) 73.0, Lymph % (Auto) 17.9, [place] % (Auto) 7.2, Eos % (Auto) 1.1, Baso % (Auto) 0.8, Neut # (Auto) 7.2, Lymph # (Auto) 1.8, [place] # (Auto) 0.7, Eos # (Auto) 0.1, Baso # (Auto) 0.1 02/26/21 07:39: Sodium 139, Potassium 3.0 L, Chloride 98, Carbon Dioxide 33 H, Anion Gap 11.0, BUN 11, Creatinine 1.20, Estimated Creat Clear 57, Estimated GFR 59, Est GFR ( Amer) 71, Glucose 165 H, Calcium 9.6, Troponin I < 0.01, Amylase 79, Lipase 111 02/26/21 07:39: Total Bilirubin 0.6, Direct Bilirubin 0.1, Conjugated Bilirubin 0.0, Indirect Bilirubin 0.5, Unconjugated Bilirubin 0.5, AST 28, ALT 19, Alkaline Phosphatase 93, Total Protein 6.9, Albumin 4.3 Result diagrams: 02/26/21 07:39 02/26/21 07:39 Orders (Tests/Meds): ED MEDICATIONS Generic Name Dose Route Start Last Admin Trade Name Freq PRN Reason Stop Dose Admin Sodium Chloride 8 ml 02/26/21 07:47 02/26/21 07:52 Sodium Chloride 0.9% 10ml Vial IV 03/28/21 07:46 8 ml NEEDED PRN Administration dilute pepcid Discontinued Medications Generic Name Dose Route Start Last Admin Trade Name Freq PRN Reason Stop Dose Admin Aspirin 324 mg 02/26/21 07:46 02/26/21 07:48 Aspirin 81mg Chewable Tablet PO 02/26/21 07:47 324 mg ONCE ONE Administration Famotidine 20 mg 02/26/21 07:47 02/26/21 07:56 Famotidine 20mg/2ml Vial IV 02/26/21 07:48 20 mg ONCE ONE Administration Metoclopramide HCl 10 mg 02/26/21 07:47 02/26/21 07:52 Metoclopramide Hcl 10mg/2ml Vial IVP 02/26/21 07:48 10 mg ONCE ONE Administration Morphine Sulfate 2 mg 02/26/21 08:03 02/26/21 08:11 Morphine 2mg/Ml Syringe IV 02/26/21 08:04 2 mg ONCE ONE Administration Nitroglycerin 1 gm 02/26/21 08:03 02/26/21 08:10 Nitroglycerin 1 Gm Ointment TD 02/26/21 08:04 1 gm ONCE ONE Administration ORDERS Category Date Time Status Full Resp Panel w/COVID ([facility]) Routine Lab 02/26/21 08:02 Received Troponin I Q3H Lab 02/26/21 11:00 Ordered Troponin I Q3H Lab 02/26/21 14:00 Ordered - ECG Data Tracing #1 Normal Sinus Rhythm: Yes Ischemic changes: non-specific ST-T wave changes Chest Pain HPI - General Chief Complaint: Chest Pain Stated Complaint: CHEST PAIN Time Seen by Provider: 02/26/21 07:40 Mode of Arrival: Family Vehicle Source of Information: Patient, Spouse, Medical Record Limitations: No Limitations Description of Symptoms (Recalled from ER Triage Doc. by RN): PATIENT C/O CHEST PAIN AND N/V STARTING THIS AM. PT REPORTS HE HAS HAD A CARDIAC CATH IN THE PAST WITHOUT STENT PLACEMENT.
[2021-02-26 07:55] LABS: Basophils # 0.1 K/mm3 (0-0.2); Basophils % 0.8 % (0.1-2.0); Eosinophils # 0.1 K/mm3 (0.0-0.4); Eosinophils % 1.1 % (0.1-12.0); Hematocrit 43.8 % (42.0-52.0); Hemoglobin 14.1 g/dL (14.1-18.0); Lymphocytes # 1.8 K/mm3 (0.7-4.5); Lymphocytes % 17.9 % (10-50); Mean Corpuscular HGB Conc 32.3 g/dL (31.8-35.4); Mean Corpuscular Hemoglobin 29.2 pg (27.0-31.2); Mean Corpuscular Volume 90.5 fl (80-94); Mean Platelet Volume 7.3 fl (7.4-10.4); Monocytes # 0.7 K/mm3 (0.1-1.0); Monocytes % 7.2 % (1.7-9.3); Neutrophils # 7.2 K/mm3 (1.8-7.8); Platelet Count 379 K/mm3 (142-424); Red Blood Count 4.84 M/mm3 (4.60-6.20); Red Cell Distribution Width 13.8 % (11.5-17.5); White Blood Count 9.9 K/mm3 (4.8-10.8)
[2021-02-26 07:56] LABS: Chloride 98 mmol/L (98-107); Sodium 139 mmol/L (136-145)
[2021-02-26 07:58] LABS: Amylase 79 U/L (30-110)
[2021-02-26 07:59] LABS: Blood Urea Nitrogen 11 mg/dl (9-20); Calcium 9.6 mg/dl (8.4-10.2); Carbon Dioxide 33 mmol/L (22.0-30.0); Creatinine Clearance Estimated 57 mL/min (50-200); Estimated Glomerular Filt Rate 59 ml/min (>60); GFR (African American) 71 ML/MIN (>60); Glucose 165 mg/dl (74-100); Lipase 111 U/L (23-300)
--- NOTE | 2021-02-26 08:03 | CA_ITS ---
APPROVED REPORT EXAM: Comprehensive 2D, Doppler, and color-flow Echocardiogram [employer] Interpreter: Sidra Morris RT(R) Ht: 5 ft 11 in Wt: 170lbs BSA: 1.97 BP: 118/72 mmHg Indications: CP, DM, CAD, CHF, GERD, hx ME 2D Dimensions LVOT 1.89 cm (M/F) 1.5-2.5 LA Volume 19.40 mL LA Volume Index 9.89 mL/m2 (M/F) 16-34 M-Mode Dimensions RVDd 3.05 cm (0.9-2.6) LA Diam 4.10 cm (1.9-4.0) LVDd 3.85 cm (3.5-5.7) Ao Diam 2.92 cm (2.0-3.7) LVDs 2.72 cm (3.5-5.7) IVSd 0.80 cm (0.6-1.1) PWd 0.80 cm (0.6-1.1) EF (Teich) 57.00% FS 29.40% EDV (Teich) 63.90 mL ESV (Teich) 27.50 mL LV Diastology E Decel Time 283.00 (160-240 msec) E/A Ratio 1.06 MED E' 6.20 (< 7 cm/sec) E'/MED E' Ratio 10.31 (>14) LAT E' 9.00 (<10 cm/sec) E/LAT E' Ratio 7.10 (>14) Mitral Valve MV A Velocity 60.00 (40-130 cm/s) E/A Ratio 1.06 MV Decel. Time 283.00 (160-240 ms) Tricuspid Valve TR P. Velocity 266.00 cm/s RAP Estimate 10.00 mmHg RVSP 38.20 mmHg Left Ventricle Left atrium is mildly enlarged, left ventricle is normal size, mild concentric left ventricular hypertrophy, visually estimated ejection fraction 55% with no regional wall motion abnormality, grade 1 diastolic dysfunction seen without tissue Doppler evidence of raise left atrial pressure. Right Ventricle Right atrium and right ventricle are normal size and contractility. Aortic Valve Aortic valve is minimally thickened and fibrosed, there is no aortic stenosis or aortic insufficiency. Mitral Valve Mitral valve is grossly normal, there is mild mitral regurgitation. Tricuspid Valve Tricuspid grossly normal, there is mild tricuspid regurgitation, tricuspid regurgitation jet velocity is inadequate for calculation of the right ventricular systolic pressure. Pulmonic Valve Pulmonic valve is poorly visualized. Great Vessels Aortic root is normal size. Inferior vena cava is not well visualized. Pericardium Moderate circumferential pericardial effusion noted without Doppler evidence of raised intrapericardial pressure or tamponade. Conclusion 1. Normal left ventricular size, preserved left ventricular systolic function, visually estimated ejection fraction 55% with no regional wall motion abnormality, grade 1 diastolic dysfunction seen without tissue Doppler evidence of raise left atrial pressure. 2. Mild mitral and tricuspid regurgitation. 3. Moderate size circumferential pericardial effusion noted without Doppler evidence of raise intrapericardial pressure tamponade physiology. Inferior vena cava is not well visualized. Electronically signed by : Caden Madrid, 02/26/2021 19:31:49
[2021-02-26 08:13] LABS: Alanine Aminotransferase 19 U/L (12-78); Alkaline Phosphatase 93 U/L (38-126); Aspartate Amino Transferase 28 U/L (17-59); Bilirubin,Direct 0.1 mg/dl (0.0-0.4); Bilirubin,Indirect 0.5 mg/dL (0.0-0.9); Bilirubin,Total 0.6 mg/dl (0.2-1.3); Bilirubin,Unconjugated 0.5 mg/dL (0.0-1.1)
[2021-02-26 08:14] LABS: Albumin Level 4.3 g/dl (3.5-5.0); Total Protein,Serum 6.9 g/dl (6.3-8.2)
--- NOTE | 2021-02-26 08:14 | PC.NURSE ---
Vascular here to do echo
[2021-02-26 08:18] LABS: Troponin I < 0.01 ng/ml (0.00-0.034)
[2021-02-26 08:25] LABS: Adenovirus,PCR Not Detected (NotDetected); Bordetella Pertussis Not Detected (NotDetected); Chlamydophila Pneumoniae, PCR Not Detected (NotDetected); Coronavirus 19, PCR Not Detected (NotDetected); Coronavirus 229E Not Detected (NotDetected); Coronavirus NL63 Not Detected (NotDetected); Coronavirus OC43 Not Detected (NotDetected); Coronovirus HKU1,PCR Not Detected (NotDetected); Human Metapneumovirus Not Detected (NotDetected); Influenza A, PCR Not Detected (NotDetected); Influenza AH1, 2009 Not Detected (NotDetected); Influenza AH1, PCR Not Detected (NotDetected); Influenza AH3,PCR Not Detected (NotDetected); Influenza B, PCR Not Detected (NotDetected); Mycoplasma Pneumoniae, PCR Not Detected (NotDetected); Parainfluenza 1, PCR Not Detected (NotDetected); Parainfluenza 2, PCR Not Detected (NotDetected); Parainfluenza 3, PCR Not Detected (NotDetected); Parainfluenza 4, PCR Not Detected (NotDetected); Respiratory Syncytial Virus Not Detected (NotDetected); Rhinovirus/Enterovirus Not Detected (NotDetected)
--- NOTE | 2021-02-26 09:09 | PC.NURSE ---
CALLED CLINIC PHARMACY TO OBTAIN MEDICATION LIST
--- NOTE | 2021-02-26 09:17 | US_ITS ---
PROCEDURE: US GALLBLADDER CLINICAL INDICATION: abd pain COMPARISON: CR XR CHEST 2V from 09/02/2020 FINDINGS: Pancreas: Unremarkable/Not well seen a portion of the tail is obscured by bowel gas Liver: The liver is normal in size however there is diffuse overall increased echogenicity suggesting fatty infiltration.. There is appropriate direction of blood flow within a non dilated portal vein. Right kidney: Unremarkable appearing. No hydronephrosis. The right kidney measures 8.5 x 4.8 by 4.9 cm and appears sonographically normal. 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 However there does appear to be biliary sludge layering along the dependent wall and there may be tiny partially calcified gallstones as well. There is no discrete acoustic shadowing however. The common bile duct is normal in caliber. Wall is normal in thickness. IMPRESSION: 1. Mild to moderate diffuse hepatic steatosis 2. Gallbladder difficult to evaluate for the reasons mentioned above but I suspect probably combination of biliary sludge and tiny partially calcified gallstones layering on the dependent wall Dictated by: Dr. Milton Kaur MD 02/26/2021 11:12 Dr. Milton Kaur MD in [place] 02/26/2021 11:12
--- NOTE | 2021-02-26 09:20 | PC.NURSE ---
Rito Willard in with pt
--- NOTE | 2021-02-26 09:29 | HMH.PHAINT ---
MEDICATION RECONCILIATION COMPLETED USING EXTERNAL FILL HISTORY
--- NOTE | 2021-02-26 09:30 | HMH.PHAVTE ---
[facility] Pharmacy VTE Monitoring - Patient Demographics Admission date: 02/26/21 Report Date: 02/26/21 Time: 09:30 Allergies/Adverse Reactions: Patient Allergies No Known Allergies Allergy (Verified 02/26/21 09:06) Height: 1.8 m Weight: 77.111 kg Patient Problems: Current Active Problems Chest pain (Acute) - VTE Risk Labs: VTE Related Lab Results Hgb 14.1 g/dL (14.1-18.0) 02/26/21 07:39 Hct 43.8 % (42.0-52.0) 02/26/21 07:39 Plt Count 379 K/mm3 (142-424) 02/26/21 07:39 BUN 11 mg/dl (9-20) 02/26/21 07:39 Creatinine 1.20 mg/dl (0.66-1.25) 02/26/21 07:39 Estimated Creat Clear 57 mL/min (50-200) 02/26/21 07:39 - Prophylaxis VTE Prophylaxis Ordered?: Yes Types of VTE Prophylaxis: TEDS Knee High Location of Applied Device: Bilateral Lower Extremeties
--- NOTE | 2021-02-26 09:54 | HMH.CNCARD ---
History of Present Illness Consult date: 02/26/21 Requesting physician: Chip Zamarripa Consult reason: chest pain Chief complaint: chest pain Additional Medical History:: 1. Hypertension A. Echo, 04/2019, 1. Mildly enlarged left atrium, normal left ventricular size, mild qualitative concentric left ventricular hypertrophy visually estimated ejection fraction 55% with no regional wall motion abnormality, grade 1 diastolic dysfunction seen without tissue Doppler evidence of raised left atrial pressure. 2. Mild mitral and tricuspid regurgitation 3. Moderate-sized circumferential pericardial effusion noted as described above, without obvious Doppler evidence of raised intrapericardial pressure. Inferior vena cava is not well visualized 2. Diabetes mellitus, treated for greater than 15 years 3. Marginal historian 4. GERD 5. History of asthma per chart 6. CAD A. [facility] results: ANGIOGRAPHIC RESULTS The left main artery Is mild 10% luminal irregularities The left anterior descending artery Has an ostial 30% stenosis proximal 30% stenosis mid vessel 30 to 40% stenosis in an area that is 2 mm in diameter. The LAD itself is small and does not supply the apex. The circumflex artery Small nondominant normal The right coronary artery Is a large dominant vessel with a proximal 20 to 30% stenosis mid vessel tandem 30% stenoses distal 10 to 20% stenoses. The posterior descending artery has a mid vessel 40 to 50% stenosis and a 2.5 mm PDA The MANNN[place] ventriculogram reveals Normal 65% The left ventricular end-diastolic pressure 10 mmHg IMPRESSION Coronary artery disease as described above Normal ejection fraction Mildly elevated LVEDP PLAN 1. Medical management 2. Should patient continue with recalcitrant angina pectoris refractory to standard medical therapy I would consider performing an FFR to the PDA. Ideally this vessel should respond well to medical management Electronically signed by : Micheal Dos Santos, 09/03/2020 11:14:35 7. History of rectal cancer treated with radiation and chemotherapy History of present illness: 74-year-old white male presented to the emergency department for evaluation of substernal chest pain that woke him from sleep around 4:30 this morning accompanied with nausea and several episodes of vomiting. His supper last evening was hamburger with cooked onions and vegetables. He denies any blood in the emesis this AM. He denies being sick or having diarrhea recently. Patient was given a combination of Reglan, antacid, nitroglycerin and morphine for the discomfort with concern for cardiac etiology. Initial troponin is normal and EKG shows no acute ST segment changes. Despite application of nitroglycerin paste he continues to have substernal chest discomfort rated as a 8 out of 10 which is similar to his presentation in August 2020 at which time he underwent cardiac catheterization revealing no significant coronary artery disease that would require intervention. His life partner is with him in the room and relates that patient does complain of discomfort with eating and has even at times had to vomit his food back up due to it being hung up. He has never had an endoscopy. He is a long-term diabetic but his most recent hemoglobin A1c in November of this year was 6.1. He is a non-smoker. [facility] History Medical History: Reports:: Asthma, BPH, Cancer, Congestive Heart Failure, Diabetes Mellitus Type 2, Gastroesophageal Reflux Disease(GERD), Kidney Stones, Myocardial Infarction Denies:: Atrial Fibrillation, Cerebrovascular Accident, Hyperlipidemia, Hypertension, MRSA, Renal Disease *Have you ever received a pneumonia vaccine?: No *Have you received a flu vaccine this season?: Yes Other Medical History: Reports: Arthritis. Denies: Hypothyroidism, Thyroid Disease Other Surgeries: Yes: No Previous Surgery, Cancer Surgery, Cardiac Catheterization Amputation: No Fract
--- NOTE | 2021-02-26 11:29 | PC.NURSE ---
report called to holly hector on second floor at this time
--- NOTE | 2021-02-26 11:33 | PC.NURSE ---
Recieved report from RICO Partida RN @ this time. Notified SRNA that pt is ready for transport to floor via .
[2021-02-26 11:38] LABS: Troponin I < 0.01 ng/ml (0.00-0.034)
[2021-02-26 12:26] LABS: POC Glucose,Bedside 167 (70-110)
--- NOTE | 2021-02-26 14:21 | HMH.HP ---
*Admission Date: 02/26/21 *Chief complaint: chest pain *History of present illness: this pt presented to the ed with lower ant chest pain and upper abd pain with hx of cad but has vomiting - pt was admitted for eval and treatment - he was seen by [id number] white male presented to the emergency department for evaluation of substernal chest pain that woke him from sleep around 4:30 this morning accompanied with nausea and several episodes of vomiting. His supper last evening was hamburger with cooked onions and vegetables. He denies any blood in the emesis this AM. He denies being sick or having diarrhea recently. Patient was given a combination of Reglan, antacid, nitroglycerin and morphine for the discomfort with concern for cardiac etiology. Initial troponin is normal and EKG shows no acute ST segment changes. Despite application of nitroglycerin paste he continues to have substernal chest discomfort rated as a 8 out of 10 which is similar to his presentation in August 2020 at which time he underwent cardiac catheterization revealing no significant coronary artery disease that would require intervention. His life partner is with him in the room and relates that patient does complain of discomfort with eating and has even at times had to vomit his food back up due to it being hung up. He has never had an endoscopy. He is a long-term diabetic but his most recent hemoglobin A1c in November of this year was 6.1. He is a non-smoker. [facility] History I have reviewed the patient's past medical history: Yes Medical History: Reports:: Asthma, BPH, Cancer (Rectal), Congestive Heart Failure, Coronary Artery Disease, Diabetes Mellitus Type 2, Gastroesophageal Reflux Disease(GERD), Hyperlipidemia, Kidney Stones, Myocardial Infarction Denies:: Atrial Fibrillation, Cerebrovascular Accident, Hypertension, MRSA, Renal Disease *Have you ever received a pneumonia vaccine?: Yes *Have you received a flu vaccine this season?: Yes Other Medical History: Reports: Arthritis, Chemotherapy, Hypothyroidism, Radiation Therapy. Denies: Thyroid Disease Other Surgeries: Yes: No Previous Surgery, Cancer Surgery, Cardiac Catheterization Amputation: No Fractures: No - *Social History Last grade of school completed: 5th or 6th Smoking Status: Never smoker Tobacco Type: smokeless tobacco Alcohol Intake: never Alcohol Intake Frequency:: a few times a month Substance Use Type: denies use *Occupational Status:: retired Housing: house Household Members: significant other *Travel in the last 8 weeks: None Family Hx:: Heart Attack Review of Systems - Review of Systems Review of systems:: pertinent systems reviewed and negative unless documented below - Constitutional Denies fever(s) - Eyes Denies change in vision - ENT Denies sore throat - *Cardiovascular Reports chest pain at rest - *Respiratory Reports shortness of breath, Denies cough - *Gastrointestinal Reports abdominal pain, Reports nausea, Reports vomiting, Denies black, tarry stools - *Genitourinary Denies blood in urine - *Musculoskeletal Denies joint pain - Integumentary/Breasts Denies rash - *Neurologic Denies localized weakness, Denies seizure-like activity - Psychiatric Denies anxiety Meds Home Medications Medication Instructions Recorded Confirmed Type Glimepiride 2 mg PO DAILY 09/02/20 02/26/21 History Potassium Chloride 20 meq PO DAILY #30 tablet.er 09/03/20 02/26/21 Rx levothyroxine 25 mcg capsule 25 mcg PO DAILY #30 cap 11/15/20 02/26/21 Rx Aspirin [Low Dose Aspirin EC] 81 mg PO DAILY 02/26/21 02/26/21 History Cholecalciferol (Vitamin D3) 25 mcg PO DAILY 02/26/21 02/26/21 History [Vitamin D3 1,000 Unit Cap] Ergocalciferol (Vitamin D2) 1,250 mcg PO WEEKLY 02/26/21 02/26/21 History [Drisdol] Furosemide [Lasix 40mg tablet] 20 - 40 mg PO DAILY PRN 02/26/21 02/26/21 History Isosorbide Mononitrate [Isosorbide 30 mg PO DAILY 02/26/21 02/26/21 History Mononitrate ER]
[2021-02-26 15:03] LABS: Troponin I < 0.01 ng/ml (0.00-0.034)
[2021-02-26 18:49] LABS: POC Glucose,Bedside 135 (70-110)
--- NOTE | 2021-02-26 20:08 | PC.NURSE ---
Pt intermittently confused this shift. Pt's grand-daughter states this is not baseline for him, normally he is A&Ox4 and independent w/ adl's @ home. FSBS checked (135), VS acceptable. notified of change in pt, no new orders received. Pt rechecked and found to be much more clear w/ their thoughts. Pt did have an episode of bowel incontinence this shift. Pt assisted by S/O in showering. Has had no c/o chest pain. Remains on room air. Has been up to chair majority of day. Ambulated in hallway w/ standby assistance. No needs voiced. Call mookie w/in reach.
[2021-02-26 22:22] LABS: POC Glucose,Bedside 195 (70-110)
[2021-02-27] VITALS (10 sets, daily range): BP systolic 102–134; BP diastolic 52–85; PULSE 70–90; RESP 16–18; TEMP 36.7–37.1; O2SAT 94–97; BMI 24.7
[2021-02-27 06:03] LABS: POC Glucose,Bedside 144 (70-110)
--- NOTE | 2021-02-27 06:19 | PC.NURSE ---
patient rested with eyes closed most of this shift with no concerns voiced. No s/s of acute distress noted at this time, call light within reach, bed at lowest level; will continue to monitor.
[2021-02-27 06:54] LABS: Basophils # 0.1 K/mm3 (0-0.2); Eosinophils # 0.2 K/mm3 (0.0-0.4); Monocytes # 1.1 K/mm3 (0.1-1.0)
[2021-02-27 07:00] LABS: Chloride 101 mmol/L (98-107); Potassium 3.1 mmoL/L (3.5-5.1); Sodium 137 mmol/L (136-145)
[2021-02-27 07:01] LABS: Basophils % 0.6 % (0.1-2.0); Eosinophils % 1.8 % (0.1-12.0); Hematocrit 37.2 % (42.0-52.0); Lymphocytes % 16.6 % (10-50); Mean Corpuscular HGB Conc 32.5 g/dL (31.8-35.4); Mean Corpuscular Volume 89.3 fl (80-94); Mean Platelet Volume 7.7 fl (7.4-10.4); Neutrophils # 8.4 K/mm3 (1.8-7.8); Platelet Count 303 K/mm3 (142-424); Red Blood Count 4.16 M/mm3 (4.60-6.20); Red Cell Distribution Width 14.1 % (11.5-17.5); White Blood Count 11.7 K/mm3 (4.8-10.8)
[2021-02-27 07:02] LABS: Hemoglobin 12.1 g/dL (14.1-18.0)
[2021-02-27 07:03] LABS: Anion Gap 9.1 mEq/L (5-15); Blood Urea Nitrogen 11 mg/dl (9-20); Carbon Dioxide 30 mmol/L (22.0-30.0); Cholesterol 105 mg/dl (140-200); Creatinine Clearance Estimated 59 mL/min (50-200); Estimated Glomerular Filt Rate 59 ml/min (>60); GFR (African American) 71 ML/MIN (>60); Glucose 154 mg/dl (74-100); Magnesium 1.9 mg/dl (1.6-2.3); Triglycerides 87 mg/dl (30-150); VLDL Cholesterol 17 mg/dL (0-40)
[2021-02-27 07:04] LABS: Chol/HDL Ratio 2.8 (1-3.5); HDL Cholesterol 37 mg/dl (40-60)
[2021-02-27 07:14] LABS: Direct LDL Cholesterol 45.21 mg/dL (100-129)
[2021-02-27 07:17] LABS: Calcium 8.6 mg/dl (8.4-10.2)
--- NOTE | 2021-02-27 08:29 | HMH.PNCARD ---
Subjective Date: 02/27/21 Time: 08:30 Principal diagnosis: Chest pain Interval history: 74-year-old male admitted to [facility] with substernal chest pain and shortness of breath yesterday. Patient is alert and oriented appropriately x4. Patient denies chest pain, tightness or pressure. Patient denies shortness of breath. No swelling noted of the lower extremities. Patient does complain of slight difficulty swallowing and states this is not new for him. Has been recommended for patient to have a barium swallow and consult with GI due to this. Due to patient complaining of spasm of the substernal area, Norvasc and metoprolol were started yesterday. Patient is unsure if the medication has helped. process cheese cooker reveals sinus rhythm with no ectopy. Blood pressure is stable. Patient does have history of coronary artery disease. Patient did undergo a left heart catheterization in August 2020 which revealed medical management. Echocardiogram performed revealed EF 55% with no wall motion abnormality, mild mitral and tricuspid regurgitation. Moderate size circumparenteral pericardial effusion noted, will continue to monitor. At this time, cardiology will defer further cardiac testing. Please continue to monitor patient status and notify cardiology of any changes. Echo:Conclusion 1. Normal left ventricular size, preserved left ventricular systolic function, visually estimated ejection fraction 55% with no regional wall motion abnormality, grade 1 diastolic dysfunction seen without tissue Doppler evidence of raise left atrial pressure. 2. Mild mitral and tricuspid regurgitation. 3. Moderate size circumferential pericardial effusion noted without Doppler evidence of raise intrapericardial pressure tamponade physiology. Inferior vena cava is not well visualized. Thank you for allowing cardiology to participate in the care of this patient. Exam Vital signs and Labs for Last 24 Hours: Temp Pulse Resp BP Pulse Ox 98.1 F 89 16 133/85 96 02/27/21 07:51 02/27/21 07:51 02/27/21 07:51 02/27/21 07:51 02/27/21 07:51 Laboratory Results - last 24 hr 02/26/21 08:02: Chlamy pneumoniae PCR Not detected, Adenovirus (PCR) Not detected, B. pertussis DNA (PCR) Not detected, Coronavirus OC43 (PCR) Not detected, Coronavirus HKU1 (PCR) Not detected, Coronavirus 229E (PCR) Not detected, SARS-CoV-2 (PCR) Not detected, Coronavirus NL63 (PCR) Not detected, Human Metapneumovir PCR Not detected, Influenza A (H1) PCR Not detected, Influ A (H1N1/09) PCR Not detected, Influenza A (H3) PCR Not detected, Influenza Type A (PCR) Not detected, Influenza Type B (PCR) Not detected, M. pneumoniae (PCR) Not detected, Parainfluenza 1 (PCR) Not detected, Parainfluenza 2 (PCR) Not detected, Parainfluenza 3 (PCR) Not detected, Parainfluenza 4 (PCR) Not detected, RSV (PCR) Not detected, Entero/Rhino (PCR) Not detected 02/26/21 11:00: Troponin I < 0.01 02/26/21 12:01: POC Glucose 167 H 02/26/21 14:15: Troponin I < 0.01 02/26/21 16:21: POC Glucose 135 H 02/26/21 22:05: POC Glucose 195 H 02/27/21 05:56: POC Glucose 144 H 02/27/21 06:03: WBC 11.7 H, RBC 4.16 L, Hgb 12.1 L D, Hct 37.2 L, MCV 89.3, MCH 29.0, MCHC 32.5, RDW 14.1, Plt Count 303, MPV 7.7, Neut % (Auto) 72.0, Lymph % (Auto) 16.6, [place] % (Auto) 9.0, Eos % (Auto) 1.8, Baso % (Auto) 0.6, Neut # (Auto) 8.4 H, Lymph # (Auto) 2.0, [place] # (Auto) 1.1 H, Eos # (Auto) 0.2, Baso # (Auto) 0.1 02/27/21 06:03: Sodium 137, Potassium 3.1 L, Chloride 101, Carbon Dioxide 30, Anion Gap 9.1, BUN 11, Creatinine 1.20, Estimated Creat Clear 59, Estimated GFR 59, Est GFR ( Amer) 71, Glucose 154 H, Calcium 8.6 D, Magnesium 1.9, Triglycerides 87, Cholesterol 105 L, LDL Cholesterol Direct 45.21 L, VLDL Cholesterol 17, HDL Cholesterol 37 L, Cholesterol/HDL Ratio 2.8 I & O for Last 24 hours: Intake & Output 04/18/02/25/21 02/26/21 02/27/21 23:59 23:59 23:59 23:59 Intake Total 240 / 240
--- NOTE | 2021-02-27 10:32 | HMH.ACPN2 ---
Internal Medicine - PN: Subj *Date: 02/28/21 *Time: 05:05 Interval history: pt reports pain is better - but has diarrhea - abn gb u/s and will need hida scan - card note reviewed Exam Vital signs and Labs for Last 24 Hours: Temp Pulse Resp BP Pulse Ox 98.1 F 89 16 133/85 96 02/27/21 07:51 02/27/21 07:51 02/27/21 07:51 02/27/21 07:51 02/27/21 07:51 Laboratory Results - last 24 hr 02/26/21 11:00: Troponin I < 0.01 02/26/21 12:01: POC Glucose 167 H 02/26/21 14:15: Troponin I < 0.01 02/26/21 16:21: POC Glucose 135 H 02/26/21 22:05: POC Glucose 195 H 02/27/21 05:56: POC Glucose 144 H 02/27/21 06:03: WBC 11.7 H, RBC 4.16 L, Hgb 12.1 L D, Hct 37.2 L, MCV 89.3, MCH 29.0, MCHC 32.5, RDW 14.1, Plt Count 303, MPV 7.7, Neut % (Auto) 72.0, Lymph % (Auto) 16.6, [place] % (Auto) 9.0, Eos % (Auto) 1.8, Baso % (Auto) 0.6, Neut # (Auto) 8.4 H, Lymph # (Auto) 2.0, [place] # (Auto) 1.1 H, Eos # (Auto) 0.2, Baso # (Auto) 0.1 02/27/21 06:03: Sodium 137, Potassium 3.1 L, Chloride 101, Carbon Dioxide 30, Anion Gap 9.1, BUN 11, Creatinine 1.20, Estimated Creat Clear 59, Estimated GFR 59, Est GFR ( Amer) 71, Glucose 154 H, Calcium 8.6 D, Magnesium 1.9, Triglycerides 87, Cholesterol 105 L, LDL Cholesterol Direct 45.21 L, VLDL Cholesterol 17, HDL Cholesterol 37 L, Cholesterol/HDL Ratio 2.8 I & O for Last 24 hours: Intake & Output 02/24/21 02/25/21 02/26/21 02/27/21 11:59 11:59 11:59 11:59 Intake Total 600 / 600 Balance 600 / 600 Weight 170 lb 176 lb 5.917 oz - Constitutional no acute distress - *Routine HEENT Exam Head: Present: normocephalic Eye: Present: EOMI, PERRL ENT: Present: mucous membranes dry - *Routine Neck Exam Present: supple - *Routine Respiratory Exam Present: CTA bilaterally - *Routine Cardiovascular Exam Present: RRR, murmur - *Routine Abdominal Exam Present: soft. Absent: tenderness - *Routine Extremities Exam Present: pulses intact - *Routine Skin Exam Present: intact - *Routine Neurological Exam Present: alert, CN II-XII intact - Routine Psychiatric Exam Present: normal affect Assessment and Plan (1) Chest pain Status: Acute Qualifiers: Chest pain type: precordial pain Qualified Code(s): R07.2 - Precordial pain Category: Medical Code(s): R07.9 - Chest pain, unspecified (2) Hypokalemia Status: Acute Category: Medical Code(s): E87.6 - Hypokalemia (3) Diabetes Status: Chronic Qualifiers: Diabetes mellitus type: type 1 Diabetes mellitus complication status: without complication Qualified Code(s): E10.9 - Type 1 diabetes mellitus without complications Category: Medical Code(s): E11.9 - Type 2 diabetes mellitus without complications (4) Dysphagia Status: Acute Category: Medical Code(s): R13.10 - Dysphagia, unspecified (5) Hypertension Status: Acute Category: Medical Code(s): I10 - Essential (primary) hypertension (6) Hypothyroidism (acquired) Status: Acute Category: Medical Code(s): E03.9 - Hypothyroidism, unspecified (7) CAD (coronary artery disease) Status: Acute Qualifiers: Coronary Disease-Associated Artery/Lesion type: [place] artery [place] vs. transplanted heart: [place] heart Associated angina: with unstable angina Qualified Code(s): I25.110 - Atherosclerotic heart disease of [place] coronary artery with unstable angina pectoris Category: Medical Code(s): I25.10 - Atherosclerotic heart disease of [place] coronary artery without angina pectoris (8) Pericardial effusion without cardiac tamponade Status: Acute Category: Medical Code(s): I31.3 - Pericardial effusion (noninflammatory)
[2021-02-27 12:07] LABS: POC Glucose,Bedside 165 (70-110)
--- NOTE | 2021-02-27 15:55 | PC.NURSE ---
Pt is alert and oriented x3. Lungs are clear, bowel sounds active x4. He is on RA, NSR on telemetry. He has ambulated to the bathroom independently with no concerns. He reports having diarrhea. MD notified and diarrhea panel ordered. Pt instructed to notify RN if he has any more BM's. No change from morning assessment. Will continue to monitor.
--- NOTE | 2021-02-27 16:17 | PC.NURSE ---
Trash and dirty linens pulled
[2021-02-27 16:42] LABS: POC Glucose,Bedside 184 (70-110)
[2021-02-27 21:07] LABS: POC Glucose,Bedside 148 (70-110)
[2021-02-28] VITALS (8 sets, daily range): BP systolic 110–139; BP diastolic 64–78; PULSE 64–78; RESP 16–20; TEMP 36.8–37.1; O2SAT 95–98; BMI 24.5
--- NOTE | 2021-02-28 04:10 | PC.NURSE ---
shift summary pts lung sounds are clear with sats maintained at 95% with a rate ranging from 16-18. pt is independent in going to the restroom. pt is alert and oriented X4. pt denies any pain, nausea, vomiting, or diarrhea.
[2021-02-28 06:23] LABS: POC Glucose,Bedside 134 (70-110)
--- NOTE | 2021-02-28 07:00 | NM_ITS ---
PROCEDURE: NM HEPATOBILIARY W PHARM The CLINICAL INDICATION: Abnormal gallbladder ultrasound Abnormal gallbladder ultrasound, abdominal pain with nausea, cholelithiasis COMPARISON: CT CHESTW CT chest w con from 04/18/2019 US US GALLBLADDER from 02/26/2021 TECHNIQUE: DOSE: 8.14 mCi technetium Choletec. Fatty meal was given with Ensure FINDINGS: The exam is originally performed on 02/28/2021. The gallbladder was not visualized at 1 hour and a fatty meal was given at that time. Delayed images were obtained at 3 hours with no gallbladder visualization. 1 could not confirm that the cystic duct was obstructed due to the fact that may fatty meal was given therefore, the study was repeated on 03/01/2021. The dose was 8.87 mCi technetium Choletec and 3 mg of morphine sulfate IV. Once again the gallbladder was not visualized by 1 hour with a prominent amount of activity within the small bowel the small bowel is visualized by 1 minute. 3 mg of morphine sulfate was given with slow IV push at 1 hour and images obtained up to 30 minutes. During this time there was no evidence gallbladder visualization. IMPRESSION: Nonvisualization of the gallbladder as described above consistent with obstruction of the cystic duct. Dictated by: Randy Su MD 03/01/2021 16:05 Randy Su MD in [place] 03/01/2021 16:06
--- NOTE | 2021-02-28 07:06 | PC.NURSE ---
Pt off floor for test
--- NOTE | 2021-02-28 09:40 | PC.NURSE ---
Pt back to floor
[2021-02-28 10:01] LABS: Adenovirus F 40/41, stool Not Detected (NotDetected); Astrovirus Not Detected (NotDetected); Campylobacter Not Detected (NotDetected); Clostridium Difficile A/B, PCR Not Detected (NotDetected); Cryptosporidium Not Detected (NotDetected); Cyclospora Cayetanesis Not Detected (NotDetected); Entamoeba histolytica Not Detected (NotDetected); Enteroaggregative E coli Not Detected (NotDetected); Enteropathogenic E coli Not Detected (NotDetected); Enterotoxigenic E coli Not Detected (NotDetected); Giardia lamblia Not Detected (NotDetected); Norovirus Not Detected (NotDetected); Plesimonas Shigalloides, PCR Not Detected (NotDetected); Rotavirus A Not Detected (NotDetected); Salmonella, PCR Not Detected (NotDetected); Sapovirus Not Detected (NotDetected); Shiga-like toxin E coli Not Detected (NotDetected); Shigella Enterovasive E coli Not Detected (NotDetected); Vibrio Cholerae Not Detected (NotDetected); Vibrio, PCR Not Detected (NotDetected); Yersinia Entercolitica, PCR Not Detected (NotDetected)
[2021-02-28 11:25] LABS: POC Glucose,Bedside 182 (70-110)
--- NOTE | 2021-02-28 16:50 | PC.NURSE ---
Pt is alert and oriented x3. Able to verbalize needs and no complaints voiced this shift. No change since morning assessment. Pt has had 1 episode on bowel incontinence this morning. Stool sample collected and sent to lab per order. Home meds reordered this afternoon. Pharmacy notified. They stated they will retrieve and label them in the morning. Home meds are currently locked in med drawer. Family at bedside and supportive. Will continue to monitor.
[2021-02-28 18:03] LABS: POC Glucose,Bedside 165 (70-110)
--- NOTE | 2021-02-28 18:50 | HMH.ACPN2 ---
Internal Medicine - PN: Subj *Date: 02/28/21 *Time: 18:50 Interval history: hida earlier today inconclusive repeat requested denies active chest pain Exam Vital signs and Labs for Last 24 Hours: Temp Pulse Resp BP Pulse Ox 98.8 F 70 18 110/69 98 02/28/21 15:48 02/28/21 16:00 02/28/21 15:48 02/28/21 15:48 02/28/21 15:48 Laboratory Results - last 24 hr 02/27/21 09:56: Stl Aeromonas (PCR) Not detected, Stl C. cayetanensis PCR Not detected, Stool Rotavirus (PCR) Not detected, Stl Adenov F 40/41 PCR Not detected, Stool Astrovirus (PCR) Not detected, Stool Campylobacter PCR Not detected, Stl C.difficile Tox PCR Not detected, Stool Cryptosporidium PCR Not detected, Stl E.coli Shiga Tox PCR Not detected, Stool E coli O157 PCR Not detected, Stl Enterotoxigenic E PCR Not detected, Stool EPEC (PCR) Not detected, Stool EAEC (PCR) Not detected, Stl E. histolytica PCR Not detected, Stool Giardia Lamblia PCR Not detected, Stool Salmonella PCR Not detected, Stool Sapovirus (PCR) Not detected, Stl P. shigelloides PCR Not detected, Stl Shigella/EIEC PCR Not detected, St Y.enterocolitica PCR Not detected, Stool Vibrio (PCR) Not detected, Stl Vibrio cholerae PCR Not detected, Stl Norovirus GI/GII PCR Not detected 02/27/21 20:57: POC Glucose 148 H 02/28/21 06:17: POC Glucose 134 H 02/28/21 11:04: POC Glucose 182 H 02/28/21 16:27: POC Glucose 165 H I & O for Last 24 hours: Intake & Output 02/25/21 02/26/21 02/27/21 02/28/21 23:59 23:59 23:59 23:59 Intake Total 240 / 240 1098 / 1098 680 / 680 Output Total 0 / 0 Balance 240 / 240 1098 / 1098 680 / 680 Weight 174 lb 1 oz 176 lb 5.917 oz 175 lb 5 oz - Constitutional no acute distress - *Routine HEENT Exam Head: Present: normocephalic Eye: Present: EOMI, PERRL ENT: Present: mucous membranes moist - *Routine Neck Exam Present: supple. Absent: lymphadenopathy - *Routine Respiratory Exam Present: CTA bilaterally - *Routine Cardiovascular Exam Present: RRR - *Routine Abdominal Exam Present: soft, normoactive bowel sounds. Absent: tenderness - *Routine Extremities Exam Absent: cyanosis, clubbing, edema - *Routine Skin Exam Present: warm. Absent: jaundice, rash - *Routine Neurological Exam Present: alert, oriented X3, vision grossly intact, hearing grossly intact, normal speech Assessment and Plan (1) Chest pain Status: Acute Qualifiers: Chest pain type: precordial pain Qualified Code(s): R07.2 - Precordial pain Category: Medical Code(s): R07.9 - Chest pain, unspecified (2) Hypokalemia Status: Acute Category: Medical Code(s): E87.6 - Hypokalemia (3) Diabetes Status: Chronic Qualifiers: Diabetes mellitus type: type 1 Diabetes mellitus complication status: without complication Qualified Code(s): E10.9 - Type 1 diabetes mellitus without complications Category: Medical Code(s): E11.9 - Type 2 diabetes mellitus without complications (4) Dysphagia Status: Acute Category: Medical Code(s): R13.10 - Dysphagia, unspecified (5) Hypertension Status: Acute Category: Medical Code(s): I10 - Essential (primary) hypertension (6) Hypothyroidism (acquired) Status: Acute Category: Medical Code(s): E03.9 - Hypothyroidism, unspecified (7) CAD (coronary artery disease) Status: Acute Qualifiers: Coronary Disease-Associated Artery/Lesion type: [place] artery [place] vs. transplanted heart: [place] heart Associated angina: with unstable angina Qualified Code(s): I25.110 - Atherosclerotic heart disease of [place] coronary artery with unstable angina pectoris Category: Medical Code(s): I25.10 - Atherosclerotic heart disease of [place] coronary artery without angina pectoris (8) Pericardial effusion without cardiac tamponade Status: Acute Category: Medical Code(s): I31.3 - Pericardial effusion (noninflammatory) - Assessment and plan all Dx Assessment and Plan for all problems::
[2021-02-28 20:45] LABS: POC Glucose,Bedside 193 (70-110)
[2021-03-01] VITALS: PULSE 70
--- NOTE | 2021-03-01 03:34 | PC.NURSE ---
A&OX4. PT UP WITH STANDBY ASSIST IN ROOM. PT TOLERATING RA WELL. PT HAS NOT C/O PAIN/NA/VO/CP THUS FAR THIS SHIFT. PT HAS SLEPT MAJORITY OF SHIFT. NSR ON TELE. TOLERATING NPO DIET. VSS WILL CONTINUE TO MONITOR.
[2021-03-01 04:00] VITALS: BP 118/71; PULSE 73; PULSE 90; RESP 16; TEMP 37.2; O2SAT 98
[2021-03-01 04:59] VITALS: BMI 24.7
[2021-03-01 06:11] LABS: POC Glucose,Bedside 132 (70-110)
--- NOTE | 2021-03-01 06:18 | PC.NURSE ---
THIS NURSE NOTIFIED BY RADIOLOGY THAT PT SCAN WILL NOT BE UNTIL 1200. THEY REQUESTED FOR PT TO HAVE A COUPLE PIECES OF TOAST STAT. THIS RN PUT IN ORDER.
[2021-03-01 07:55] VITALS: BP 125/69; PULSE 69; RESP 20; TEMP 37.1; O2SAT 97
[2021-03-01 08:00] VITALS: PULSE 60
[2021-03-01 11:30] LABS: POC Glucose,Bedside 96 (70-110)
--- NOTE | 2021-03-01 11:40 | HMH.GSCON ---
*Admission Date: 02/26/21 *Reason for consult:: Possible gallbladder *History of present illness: Patient is a 74-year-old male whom I am asked to see for possible gallbladder. This is the patient's fourth hospital day. He presented on Thursday morning, 02/26/2021 with substernal chest pain. He was admitted. He has undergone cardiology evaluation. He had a gallbladder ultrasound performed on 02/26/2021 which was inconclusive according to Dr. Kaur. 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 However there does appear to be biliary sludge layering along the dependent wall and there may be tiny partially calcified gallstones as well. There is no discrete acoustic shadowing however. He apparently underwent a HIDA scan yesterday which was inconclusive and recommended repeat HIDA scan. Surgical consultation was ordered. Of note, patient is undergoing upper endoscopy for some symptoms of dysphagia by Dr. Fernandez today. Patient is currently asymptomatic regarding chest and abdominal pain. Review of Systems - Review of Systems Review of systems:: pertinent systems reviewed and negative unless documented below - *Neurologic Denies localized weakness, Denies seizure-like activity [facility] History I have reviewed the patient's past medical history: Yes Medical History: Reports:: Asthma, BPH, Cancer (Rectal), Congestive Heart Failure, Coronary Artery Disease, Diabetes Mellitus Type 2, Gastroesophageal Reflux Disease(GERD), Hyperlipidemia, Kidney Stones, Myocardial Infarction Denies:: Atrial Fibrillation, Cerebrovascular Accident, Hypertension, MRSA, Renal Disease *Have you ever received a pneumonia vaccine?: Yes *Have you received a flu vaccine this season?: Yes Other Medical History: Reports: Arthritis, Chemotherapy, Hypothyroidism, Radiation Therapy. Denies: Thyroid Disease Other Surgeries: Yes: No Previous Surgery, Cancer Surgery, Cardiac Catheterization Amputation: No Fractures: No - *Social History Last grade of school completed: 5th or 6th Smoking Status: Never smoker Tobacco Type: smokeless tobacco Alcohol Intake: never Alcohol Intake Frequency:: a few times a month Substance Use Type: denies use *Occupational Status:: retired Housing: house Household Members: significant other *Travel in the last 8 weeks: None Family Hx:: Heart Attack Meds Home Medications Medication Instructions Recorded Confirmed Type Glimepiride 2 mg PO DAILY 09/02/20 02/26/21 History Potassium Chloride 20 meq PO DAILY #30 tablet.er 09/03/20 02/26/21 Rx Aspirin [Low Dose Aspirin EC] 81 mg PO DAILY 02/26/21 02/26/21 History Cholecalciferol (Vitamin D3) 25 mcg PO DAILY 02/26/21 02/26/21 History [Vitamin D3 1,000 Unit Cap] Ergocalciferol (Vitamin D2) 1,250 mcg PO WEEKLY 02/26/21 02/26/21 History [Drisdol] Furosemide [Lasix 40mg tablet] 20 - 40 mg PO DAILY PRN 02/26/21 02/26/21 History Isosorbide Mononitrate [Isosorbide 30 mg PO DAILY 02/26/21 02/26/21 History Mononitrate ER] Naproxen [Naproxen 500mg tab] 500 mg PO DAILY 02/26/21 02/26/21 History Pravastatin Sodium [Pravachol 20mg 20 mg PO DAILY 02/26/21 02/26/21 History Tablet] levothyroxine 25 mcg tablet See Rx Instructions .ROUTE 02/28/21 Rx .COMPLEX #90 tab Allergies Allergy/AdvReac Type Severity Reaction Status Date / Time No Known Allergies Allergy Verified 02/26/21 09:06 Exam Vital signs and Labs for Last 24 Hours: Temp Pulse Resp BP Pulse Ox 98.7 F 60 20 125/69 97 03/01/21 07:55 03/01/21 08:00 03/01/21 07:55 03/01/21 07:55 03/01/21 07:55 Laboratory Results - last 24 hr 02/27/21 09:56: Stl Aeromonas (PCR) Not detected, Stl C. cayetanensis PCR Not detected, Stool Rotavirus (PCR) Not detected, Stl Adenov F 40/41 PCR Not detected, Stool Astrovirus (PCR) Not detected, Stool Campylobacter PCR Not detected, Stl C.difficile Tox PCR Not detected, Stool Cryptosporid
[2021-03-01 12:00] VITALS: PULSE 60
--- NOTE | 2021-03-01 14:30 | DIET.NUTRFU ---
PO intakes 75%, continues with diarrhea but improved, weight stable, BG moderate-avg. 150. Pt has been given diet edu for DM, CHF. Following further findings of today's procedures to provide further MNT as indicated.
[2021-03-01 16:00] VITALS: BP 126/75; PULSE 82; RESP 18; TEMP 36.8; O2SAT 98
--- NOTE | 2021-03-01 16:51 | HMH.DCSUM ---
General - General Admission date:: 02/26/21 Discharge date: 03/01/21 HPI HPI: this pt presented to the ed with lower ant chest pain and upper abd pain with hx of cad but has vomiting - pt was admitted for eval and treatment - he was seen by [id number]-old white male presented to the emergency department for evaluation of substernal chest pain that woke him from sleep around 4:30 this morning accompanied with nausea and several episodes of vomiting. His supper last evening was hamburger with cooked onions and vegetables. He denies any blood in the emesis this AM. He denies being sick or having diarrhea recently. Patient was given a combination of Reglan, antacid, nitroglycerin and morphine for the discomfort with concern for cardiac etiology. Initial troponin is normal and EKG shows no acute ST segment changes. Despite application of nitroglycerin paste he continues to have substernal chest discomfort rated as a 8 out of 10 which is similar to his presentation in August 2020 at which time he underwent cardiac catheterization revealing no significant coronary artery disease that would require intervention. His life partner is with him in the room and relates that patient does complain of discomfort with eating and has even at times had to vomit his food back up due to it being hung up. He has never had an endoscopy. He is a long-term diabetic but his most recent hemoglobin A1c in November of this year was 6.1. He is a non-smoker. Hospital Course Hospital Course: pt has been doing better pt with dec abd pain - pt with some chest pain and was sen by casey 4-year-old white male presented to the emergency department for evaluation of substernal chest pain that woke him from sleep around 4:30 this morning accompanied with nausea and several episodes of vomiting. His supper last evening was hamburger with cooked onions and vegetables. He denies any blood in the emesis this AM. He denies being sick or having diarrhea recently. Patient was given a combination of Reglan, antacid, nitroglycerin and morphine for the discomfort with concern for cardiac etiology. Initial troponin is normal and EKG shows no acute ST segment changes. Despite application of nitroglycerin paste he continues to have substernal chest discomfort rated as a 8 out of 10 which is similar to his presentation in August 2020 at which time he underwent cardiac catheterization revealing no significant coronary artery disease that would require intervention. His life partner is with him in the room and relates that patient does complain of discomfort with eating and has even at times had to vomit his food back up due to it being hung up. He has never had an endoscopy. He is a long-term diabetic but his most recent hemoglobin A1c in November of this year was 6.1. He is a non-smoker. Substernal chest pain with nausea and vomiting at rest with initial troponin normal and EKG with no acute ST segment changes. Cardiac catheterization in August 2020 showed mild to moderate coronary artery disease with recommendation for medical therapy. Continue serial enzymes, will hold off on any further cardiac testing at this time. Continue ASA 81 mg daily. 2. Dysphagia with nausea and vomiting, recommend further GI evaluation if troponins normal x3. Consider barium swallow and GB ultrasound. 3. Diabetes, per Dr. Zamarripa 4. History of rectal cancer s/p chemo and radiation therapy without surgery. 5. Hypertension, will add norvasc and metoprolol for control and possible help with esophageal spasm. 6. History of GERD, add PPI. pt with abn gb eval u/s and hida and was seen by surg ient is a 74-year-old male whom I am asked to see for possible gallbladder. This is the patient's fourth hospital day. He presented on Thursday morning, 02/26/2021 with substernal chest pain. He was admitted. He has undergone cardiology evaluation. He had a gallbladder ultrasound performed on 02/26/2021 which was inconclus
== END 2021-03-01 17:36 | disposition home or self-care (01) ==
LOC: ER 07:59 → 2ND 09:02
PROVIDERS: Admitting Provider Emergency Medicine; Emergency Provider Emergency Medicine; PCP Emergency Medicine; Visit Provider Emergency Medicine
DX: I25.110 Atherosclerotic heart disease of native coronary artery with unstable angina pectoris (principal); I31.3 Pericardial effusion (noninflammatory); I10 Essential (primary) hypertension; E11.9 Type 2 diabetes mellitus without complications; K21.9 Gastro-esophageal reflux disease without esophagitis; E03.9 Hypothyroidism, unspecified; I50.9 Heart failure, unspecified; E87.6 Hypokalemia; Z79.84 Long term (current) use of oral hypoglycemic drugs; Z79.82 Long term (current) use of aspirin; R13.10 Dysphagia, unspecified; Z79.899 Other long term (current) drug therapy
CPT/HCPCS: 36415; 71045; 76705; 78227; 80048; 80061; 80076; 82150; 82962; 83690; 83735; 84484; 85025; 87506; 87581; 87633; 87798; 93005; 93306; 96374; 96375; 99284; A9537; G0378

== ENCOUNTER → 2021-03-22 13:55 | Outpatient (CLI) | payer MEDICARE, BC, SELFPAY ==
[2021-03-22 14:27] LABS: Basophils # 0.1 K/mm3 (0-0.2); Basophils % 0.9 % (0.1-2.0); Eosinophils # 0.2 K/mm3 (0.0-0.4); Eosinophils % 3.2 % (0.1-12.0); Hematocrit 40.1 % (42.0-52.0); Hemoglobin 13.3 g/dL (14.1-18.0); Lymphocytes # 1.9 K/mm3 (0.7-4.5); Lymphocytes % 25.3 % (10-50); Mean Corpuscular HGB Conc 33.2 g/dL (31.8-35.4); Mean Corpuscular Hemoglobin 29.7 pg (27.0-31.2); Mean Corpuscular Volume 89.5 fl (80-94); Mean Platelet Volume 7.6 fl (7.4-10.4); Monocytes # 0.6 K/mm3 (0.1-1.0); Monocytes % 8.5 % (1.7-9.3); Neutrophils # 4.7 K/mm3 (1.8-7.8); Neutrophils % 62.1 % (37.0-80.0); Platelet Count 416 K/mm3 (142-424); Red Blood Count 4.48 M/mm3 (4.60-6.20); Red Cell Distribution Width 13.6 % (11.5-17.5); White Blood Count 7.6 K/mm3 (4.8-10.8)
[2021-03-22 14:43] LABS: Anion Gap 10.8 mEq/L (5-15); Blood Urea Nitrogen 10 mg/dl (9-20); Calcium 9.2 mg/dl (8.4-10.2); Carbon Dioxide 32 mmol/L (22.0-30.0); Chloride 100 mmol/L (98-107); Estimated Glomerular Filt Rate 59 ml/min (>60); GFR (African American) 71 ML/MIN (>60); Glucose 226 mg/dl (74-100); Potassium 3.8 mmoL/L (3.5-5.1); Sodium 139 mmol/L (136-145)
== END ==
PROVIDERS: Visit Provider Internal Medicine
DX: Z01.810 Encounter for preprocedural cardiovascular examination (principal); Z20.822 Contact with and (suspected) exposure to COVID-19; R07.9 Chest pain, unspecified
CPT/HCPCS: 36415; 80048; 85025; U0003

== ENCOUNTER 2021-03-25 08:54 | Day surgery (SDC) | payer MEDICARE, BC, SELFPAY ==
[2021-03-25] VITALS (14 sets, daily range): BP systolic 103–158; BP diastolic 58–88; PULSE 58–80; RESP 12–18; TEMP 36.2; O2SAT 91–98; BMI 23.8
--- NOTE | 2021-03-25 | IR_ITS ---
APPROVED REPORT Patient Location: Outpatient Annual Giving Director: LACHELLE Khan RT (R) PROCEDURES Left heart catheterization Left ventriculogram Selective coronary angiogram INDICATION Preoperative evaluation, Abnormal Myoview, Angina pectoris, Informed consent was obtained prior to the procedure. COMPLICATIONS NONE Estimated Blood Loss: LESSS THAN 10 ML TECHNIQUE One percent lidocaine used to anesthetize the right anterior aspect of the wrist. The right radial artery was accessed via the Seldinger technique. A 6 [place] sheath was placed in the right radial artery. 2.5 mg of verapamil, 800 mcg of nitroglycerin, 1mg Lidocaine and 5000 U Heparin were given through the arterial sheath. The trap catheter was also used to perform left heart catheterization, left ventriculogram and selective coronary angiogram. At the end of the procedure the sheath was removed good hemostasis was achieved using Traclet band, patient was transferred to the postop holding area in stable condition. ANGIOGRAPHIC RESULTS The left main artery Normal The left anterior descending artery Is an ostial 20 to 30% stenosis followed by proximal 20 to 30% stenoses with mid vessel 30% stenosis The circumflex artery Nondominant with mild diffuse 10% luminal irregularities The right coronary artery Is a large dominant vessel with proximal 20 to 30% stenoses with mid vessel 30% stenosis and diffuse mild vascular ectasia. TARIK II flow was present down the entire vessel The MANNING ventriculogram reveals Normal 65% The left ventricular end-diastolic pressure 10 mmHg IMPRESSION Mild diffuse coronary disease as described above Mild vascular ectasia accompanied with TARIK II flow consistent with endothelial dysfunction Normal ejection fraction Normal left ventricular end-diastolic pressure PLAN 1. Patient is alone acceptable risk to proceed with elective surgery from a cardiac standpoint 2. Treatment of endothelial dysfunction 3. Continue risk factor modification Electronically signed by : Micheal Dos Santos, 03/25/2021 15:07:02
== END 2021-03-25 13:58 | disposition home or self-care (01) ==
LOC: CATHLAB 08:59
PROVIDERS: PCP Emergency Medicine; Visit Provider Internal Medicine
DX: I25.110 Atherosclerotic heart disease of native coronary artery with unstable angina pectoris (principal); E78.5 Hyperlipidemia, unspecified; E11.9 Type 2 diabetes mellitus without complications; R94.31 Abnormal electrocardiogram [ECG] [EKG]; Z79.84 Long term (current) use of oral hypoglycemic drugs; Z79.82 Long term (current) use of aspirin; I10 Essential (primary) hypertension
CPT/HCPCS: 93458; 99152; C1725; C1769; J1644; Q9967

== ENCOUNTER → 2021-04-02 15:08 | Outpatient (CLI) | payer MEDICARE, BC, SELFPAY ==
--- NOTE | 2021-04-02 15:09 | CA_ITS ---
APPROVED REPORT Laterality: Unilateral right Candy Polisher: Aurelia Rider, RVT Comments PT HAD CATH 03/25/21 NOW HAS KNOT RT WRIST Findings Study suggests no evidence of pseudoaneurysm or AV fistula in the right wrist. Conclusion Study suggests no evidence of pseudoaneurysm or AV fistula in the right wrist. Critical Notification Physician Notified Date: 04/02/2021 Time: 15:28 Physician Name: [facility] Electronically signed by : Randy Su MD 04/02/2021 16:19:48
== END ==
PROVIDERS: PCP Emergency Medicine; Visit Provider Nurse Practitioner Family
DX: I77.0 Arteriovenous fistula, acquired (principal)
CPT/HCPCS: 93931

== ENCOUNTER → 2021-11-30 09:54 | Outpatient (CLI) | payer MEDICARE, MEDICAID, SELFPAY | PROVIDERS: Visit Provider Ophthalmology | DX: Z01.812 Encounter for preprocedural laboratory examination (principal); U07.1 COVID-19 | CPT/HCPCS: C9803; U0003; U0005 ==

== ENCOUNTER 2021-12-31 09:06 | Day surgery (SDC) | payer MEDICARE, BC, SELFPAY ==
[2021-12-31] VITALS (7 sets, daily range): BP systolic 90–120; BP diastolic 58–81; PULSE 56–71; RESP 16–20; TEMP 36.3–36.4; O2SAT 95–100; BMI 21.4
[2022-08-07 10:57] LABS: POC Glucose,Bedside 141 (70-110)
== END 2021-12-31 12:43 | disposition home or self-care (01) ==
LOC: OR 09:08
PROVIDERS: PCP Emergency Medicine; Visit Provider Ophthalmology
DX: H25.813 Combined forms of age-related cataract, bilateral (principal); H02.831 Dermatochalasis of right upper eyelid; H02.834 Dermatochalasis of left upper eyelid; M19.90 Unspecified osteoarthritis, unspecified site; E11.9 Type 2 diabetes mellitus without complications; C18.9 Malignant neoplasm of colon, unspecified; E03.9 Hypothyroidism, unspecified; I25.10 Atherosclerotic heart disease of native coronary artery without angina pectoris; I10 Essential (primary) hypertension; E78.5 Hyperlipidemia, unspecified; Z79.82 Long term (current) use of aspirin; Z79.899 Other long term (current) drug therapy
CPT/HCPCS: 66984; 82962; V2632

== ENCOUNTER → 2022-01-25 10:56 | Outpatient (CLI) | payer MEDICARE, BC, SELFPAY | PROVIDERS: PCP Emergency Medicine; Visit Provider Emergency Medicine | DX: Z01.812 Encounter for preprocedural laboratory examination (principal); Z11.52 Encounter for screening for COVID-19 | CPT/HCPCS: C9803; U0003; U0005 ==

== ENCOUNTER 2022-01-28 09:11 | Day surgery (SDC) | payer MEDICARE, BC, SELFPAY ==
[2022-01-22 10:59] VITALS: BMI 21.4
[2022-01-28 09:48] VITALS: BP 117/77; PULSE 66; RESP 18; TEMP 36.2; O2SAT 95
[2022-01-28 10:40] VITALS: BP 117/77; PULSE 58; RESP 16; O2SAT 98
[2022-01-28 10:45] VITALS: BP 120/74; PULSE 56; RESP 16; O2SAT 100
[2022-01-28 10:50] VITALS: BP 126/68; PULSE 64; RESP 16; O2SAT 100
[2022-01-28 10:56] VITALS: BP 124/80; PULSE 64; RESP 16; TEMP 36.1; O2SAT 95
[2022-08-07 10:58] LABS: POC Glucose,Bedside 138 (70-110)
== END 2022-01-28 11:10 | disposition home or self-care (01) ==
LOC: OR 09:13
PROVIDERS: PCP Emergency Medicine; Visit Provider Ophthalmology
DX: H25.813 Combined forms of age-related cataract, bilateral (principal); H02.831 Dermatochalasis of right upper eyelid; H02.834 Dermatochalasis of left upper eyelid; E11.9 Type 2 diabetes mellitus without complications; M19.90 Unspecified osteoarthritis, unspecified site; C18.9 Malignant neoplasm of colon, unspecified; E03.9 Hypothyroidism, unspecified; I25.10 Atherosclerotic heart disease of native coronary artery without angina pectoris; E78.5 Hyperlipidemia, unspecified; Z79.899 Other long term (current) drug therapy; Z79.82 Long term (current) use of aspirin
CPT/HCPCS: 66984; 82962; V2632; V2788

== ENCOUNTER 2022-05-04 21:08 | Emergency (ER) | payer MEDICARE, BC, SELFPAY ==
[2022-05-04 21:49] VITALS: BP 121/65; PULSE 80; RESP 18; TEMP 36.9; O2SAT 96; BMI 22.8
[2022-05-04 22:39] LABS: Basophils # 0.1 K/mm3 (0-0.2); Basophils % 1.3 % (0.1-2.0); Eosinophils # 0.2 K/mm3 (0.0-0.4); Eosinophils % 2.2 % (0.1-12.0); Hematocrit 39.7 % (42.0-52.0); Hemoglobin 12.9 g/dL (14.1-18.0); Lymphocytes # 1.8 K/mm3 (0.7-4.5); Lymphocytes % 21.2 % (10-50); Mean Corpuscular HGB Conc 32.5 g/dL (31.8-35.4); Mean Corpuscular Volume 92.3 fl (80-94); Mean Platelet Volume 7.8 fl (7.4-10.4); Monocytes # 0.8 K/mm3 (0.1-1.0); Monocytes % 8.6 % (1.7-9.3); Neutrophils # 5.8 K/mm3 (1.8-7.8); Neutrophils % 66.6 % (37.0-80.0); Platelet Count 415 K/mm3 (142-424); Red Cell Distribution Width 14.1 % (11.5-17.5); White Blood Count 8.7 K/mm3 (4.8-10.8)
[2022-05-04 22:45] LABS: Anion Gap 8.6 mEq/L (5-15); Blood Urea Nitrogen 19 mg/dl (9-20); Calcium 8.3 mg/dl (8.4-10.2); Carbon Dioxide 34 mmol/L (22.0-30.0); Chloride 94 mmol/L (98-107); Creatinine Clearance Estimated 46 mL/min (50-200); Estimated Glomerular Filt Rate 49 ml/min (>60); GFR (African American) 59 ML/MIN (>60); Glucose 220 mg/dl (74-100); Magnesium 1.6 mg/dl (1.6-2.3); Sodium 134 mmol/L (136-145)
[2022-05-04 22:48] LABS: Potassium 2.6 mmoL/L (3.5-5.1)
--- NOTE | 2022-05-04 22:49 | PC.NURSE ---
Dr. Zamarripa notified of critical potassium
[2022-05-04 22:51] LABS: C-Reactive Protein 5.7 mg/L (0-4)
--- NOTE | 2022-05-04 23:01 | HMH.EDEXTP ---
ED Disposition Clinical Impression: Hypokalemia Gout attack Qualifiers: Gout site: toe Gout etiology: unspecified cause Laterality: left Qualified Code(s): M10.9 - Gout, unspecified Disposition: Home, Self-Care Condition on Discharge: Good Instructions: DI for Gout Additional Instructions: use meds and see pcp this week Prescriptions: predniSONE [Prednisone 20mg Tab] 20 mg PO BID #10 tab Transmission Status: Pending to Clinic [facility] Referrals: Chip Zamraripa MD [Primary Care Provider] - - Critical Care Critical Care Time: No Attestation: On 05/04/22, the high probability of a clinically significant, sudden or life threatening deterioration of the following system(s) required my full and direct attention, intervention and personal management. The time I documented below is in addition to time spent performing reported procedures but includes the following listed in this critical care notation. Medical Decision Making - Medical Records Medical records reviewed: Yes: I reviewed the patient's medical records. - Richard Inquiry Pt receiving controlled substance: No Vital Signs: 05/04/22 21:49 Temperature 98.4 F Temperature Source Oral Pulse Rate [Apical] 80 Respiratory Rate 18 Blood Pressure [Right Arm] 121/65 Blood Pressure Mean [Right Arm] 83 Blood Pressure Source [Right Arm] Automatic Cuff Blood Pressure Position [Right Arm] Sitting 02 Sat by Pulse Oximetry 96 Oxygen Delivery Method Room Air - Lab Data Lab results reviewed: Yes: I reviewed the patient's lab results. Lab Results 05/04/22 22:00: WBC 8.7, RBC 4.30 L, Hgb 12.9 L, Hct 39.7 L, MCV 92.3, MCH 30.0, MCHC 32.5, RDW 14.1, Plt Count 415, MPV 7.8, Neut % (Auto) 66.6, Lymph % (Auto) 21.2, [place] % (Auto) 8.6, Eos % (Auto) 2.2, Baso % (Auto) 1.3, Neut # (Auto) 5.8, Lymph # (Auto) 1.8, [place] # (Auto) 0.8, Eos # (Auto) 0.2, Baso # (Auto) 0.1, ESR 29 H 05/04/22 22:00: Sodium 134 L, Potassium 2.6 L*, Chloride 94 L, Carbon Dioxide 34 H, Anion Gap 8.6, BUN 19, Creatinine 1.40 H, Estimated Creat Clear 46, Estimated GFR 49 L, Est GFR ( Amer) 59, Glucose 220 H, Calcium 8.3 L, Magnesium 1.6, C-Reactive Protein 5.7 H, Procalcitonin 0.087 05/04/22 22:00: Uric Acid 8.3 Result diagrams: 05/04/22 22:00 05/04/22 22:00 Orders (Tests/Meds): ED MEDICATIONS Discontinued Medications Generic Name Dose Route Start Last Admin Trade Name Ida PRN Reason Stop Dose Admin Ketorolac Tromethamine 15 mg 05/04/22 23:04 05/04/22 23:06 Ketorolac 30mg/Ml Vial IV 05/04/22 23:05 15 mg ONCE ONE Administration Methylprednisolone Sodium Succinate 125 mg 05/04/22 23:04 05/04/22 23:06 Methylprednisolone Sod Succ 125mg Vial IV 05/04/22 23:05 125 mg ONCE ONE Administration Potassium Chloride 40 meq 05/04/22 23:04 05/04/22 23:07 Potassium Chloride 20meq Tab PO 05/04/22 23:05 40 meq ONCE ONE Administration - Radiology Data #1 Image(s): Foot/Toes Image Reviewed: Yes I have reviewed radiologist's interpretation Preliminary Findings: No Fracture Seen Medical Decision Narrative: acute lt great toe most consistent with gout - stable lab except k Extremity Problem HPI - General Chief complaint: Extremity Injury, Lower Stated complaint: AO 2 days ago injury left foot Time Seen by Provider: 05/04/22 23:01 Mode of Arrival: Family Vehicle Source of Information: Patient, Relative, Medical Record Limitations: No Limitations Description of Symptoms (Recalled from ER Triage Doc. by RN): Patient c/o redness and burning to lateral aspect of left foot. States he noticed it two days ago but the pain and itching has gotten worse. Denies injury to extremity. Denies fever. States that the pain has gotten so severe that he is unable to ambulate on that foot. - History of Present Illness HPI Narrative: atraumatic swelling and reddness lt great toe MD Complaint: joint swelling, joint paint Onset (ago): day(s) Locat
[2022-05-04 23:02] LABS: Erythrocyte Sedimentation Rate 29 mm/hr (0-20)
--- NOTE | 2022-05-04 23:02 | XR_ITS ---
PROCEDURE INFORMATION: Exam: XR Left Foot Exam date and time: 05/04/2022 10:43 PM Age: 75 years old Clinical indication: Pain; Foot; Left; Additional info: Foot pain and redness big toe TECHNIQUE: Imaging protocol: Radiologic exam of the Left foot. Views: 3 or more views. COMPARISON: No relevant prior studies available. FINDINGS: Bones/joints: No focal bony erosive or destructive changes are present. No acute fracture or dislocation. Mild hallux valgus deformity. Soft tissues: Normal. IMPRESSION: No acute findings.
[2022-05-04 23:04] LABS: Procalcitonin 0.087 ng/mL (0.0-2.0)
[2022-05-04 23:18] LABS: Uric Acid 8.3 mg/dl (3.5-8.5)
[2022-05-05 00:08] VITALS: BP 116/72; PULSE 78; RESP 18; TEMP 36.8; O2SAT 96
== END 2022-05-05 00:21 | disposition home or self-care (01) ==
PROVIDERS: Emergency Provider Emergency Medicine; PCP Emergency Medicine
DX: E87.6 Hypokalemia (principal); M10.9 Gout, unspecified; Z79.82 Long term (current) use of aspirin; Z79.899 Other long term (current) drug therapy; J45.909 Unspecified asthma, uncomplicated; N40.0 Benign prostatic hyperplasia without lower urinary tract symptoms; I25.10 Atherosclerotic heart disease of native coronary artery without angina pectoris; I50.9 Heart failure, unspecified; E11.9 Type 2 diabetes mellitus without complications; K21.9 Gastro-esophageal reflux disease without esophagitis; E78.5 Hyperlipidemia, unspecified; I25.2 Old myocardial infarction
CPT/HCPCS: 73630; 80048; 83735; 84145; 84550; 85025; 85651; 86140; 96374; 99284

== ENCOUNTER → 2022-05-07 16:03 | Outpatient (CLI) | payer MEDICARE, BC, SELFPAY ==
[2022-05-07 14:19] LABS: Alanine Aminotransferase 15 U/L (12-78); Albumin Level 3.5 g/dl (3.5-5.0); Albumin/Globulin Ratio 1.6 (1.1-1.8); Alkaline Phosphatase 81 U/L (38-126); Anion Gap 11.7 mEq/L (5-15); Aspartate Amino Transferase 23 U/L (17-59); Blood Urea Nitrogen 30 mg/dl (9-20); Calcium 9.2 mg/dl (8.4-10.2); Carbon Dioxide 31 mmol/L (22.0-30.0); Chloride 95 mmol/L (98-107); Estimated Glomerular Filt Rate 59 ml/min (>60); GFR (African American) 71 ML/MIN (>60); Globulin 2.2 g/dL (1.3-3.2); Glucose 291 mg/dl (74-100); Potassium 3.7 mmoL/L (3.5-5.1); Sodium 134 mmol/L (136-145); Total Protein,Serum 5.7 g/dl (6.3-8.2)
[2022-05-07 14:21] LABS: Bilirubin,Total 0.1 mg/dl (0.2-1.3)
[2022-05-07 14:48] LABS: Hemoglobin A1C 7.7 % (4.0-6.0)
== END ==
PROVIDERS: Visit Provider Emergency Medicine
DX: E11.9 Type 2 diabetes mellitus without complications (principal); Z79.84 Long term (current) use of oral hypoglycemic drugs
CPT/HCPCS: 80053; 83036

== ENCOUNTER 2024-04-05 12:32 | Outpatient (CLI) | payer MEDICARE, BC, SELFPAY ==
[2024-04-05 18:59] LABS: Basophils # 0.1 K/mm3 (0-0.2); Basophils % 1.6 % (0.1-2.0); Eosinophils # 0.2 K/mm3 (0.0-0.4); Eosinophils % 2.3 % (0.1-12.0); Hematocrit 44.3 % (42.0-52.0); Hemoglobin 14.8 g/dL (14.1-18.0); Lymphocytes # 1.9 K/mm3 (0.7-4.5); Mean Corpuscular HGB Conc 33.4 g/dL (31.8-35.4); Mean Corpuscular Volume 89.8 fl (80-94); Mean Platelet Volume 8.4 fl (7.4-10.4); Monocytes # 0.4 K/mm3 (0.1-1.0); Monocytes % 6.4 % (1.7-9.3); Neutrophils # 4.3 K/mm3 (1.8-7.8); Neutrophils % 62.7 % (37.0-80.0); Platelet Count 414 K/mm3 (142-424); Red Blood Count 4.93 M/mm3 (4.60-6.20); Red Cell Distribution Width 14.4 % (11.5-17.5); White Blood Count 6.9 K/mm3 (4.8-10.8)
[2024-04-05 19:11] LABS: Alanine Aminotransferase 18 U/L (12-78); Albumin Level 4.1 g/dl (3.5-5.0); Albumin/Globulin Ratio 1.6 (1.1-1.8); Alkaline Phosphatase 97 U/L (38-126); Aspartate Amino Transferase 29 U/L (17-59); Bilirubin,Total 0.8 mg/dl (0.2-1.3); Blood Urea Nitrogen 17 mg/dl (9-20); Calcium 9.5 mg/dl (8.4-10.2); Carbon Dioxide 36 mmol/L (22.0-30.0); Chloride 93 mmol/L (98-107); Estimated Glomerular Filt Rate 53 ml/min (>60); GFR (African American) 64 ML/MIN (>60); Globulin 2.6 g/dL (1.3-3.2); Glucose 175 mg/dl (74-100); Sodium 137 mmol/L (136-145); Total Protein,Serum 6.7 g/dl (6.3-8.2)
[2024-04-05 19:33] LABS: 25-OH Vitamin D, Total 32.1 ng/mL (30-100)
[2024-04-05 19:43] LABS: Prostate Specific Ag Screen 0.5 ng/ml (0.0-4.0); Thyroid Stimulating Hormone 4.69 uIU/mL (0.465-4.68)
[2024-04-05 20:02] LABS: Vitamin B12 374 pg/mL (239-931)
[2024-04-05 21:00] LABS: Anion Gap 11.9 mEq/L (5-15); Potassium 3.9 mmoL/L (3.5-5.1)
[2024-04-05 21:28] LABS: Hemoglobin A1C 7.1 % (4.0-6.0)
== END 2024-04-05 23:59 | disposition home or self-care (01) ==
LOC: LAB.DROPOF 04-06 12:33
PROVIDERS: PCP Internal Medicine; Visit Provider Internal Medicine
DX: R53.83 Other fatigue (principal); E11.9 Type 2 diabetes mellitus without complications; E07.9 Disorder of thyroid, unspecified; Z12.5 Encounter for screening for malignant neoplasm of prostate; E55.9 Vitamin D deficiency, unspecified; E53.8 Deficiency of other specified B group vitamins
CPT/HCPCS: 80053; 82306; 82607; 83036; 84443; 85025; G0103

== ENCOUNTER 2024-05-09 21:16 | Outpatient (CLI) | payer MEDICARE, BC, SELFPAY ==
[2024-05-09 22:19] LABS: Thyroid Stimulating Hormone 4.78 uIU/mL (0.465-4.68)
== END 2024-05-09 23:59 | disposition home or self-care (01) ==
LOC: LAB.DROPOF 21:19
PROVIDERS: PCP Internal Medicine; Visit Provider Internal Medicine
DX: E03.9 Hypothyroidism, unspecified (principal); E11.9 Type 2 diabetes mellitus without complications
CPT/HCPCS: 82043; 84443

== ENCOUNTER 2025-02-03 16:30 | Outpatient (CLI) | payer MEDICARE, OTHER, SELFPAY ==
[2025-02-03 18:37] LABS: Basophils # 0.1 K/mm3 (0-0.2); Basophils % 1.2 % (0.1-2.0); Eosinophils # 0.2 K/mm3 (0.0-0.4); Eosinophils % 1.8 % (0.1-12.0); Hematocrit 44.3 % (42.0-52.0); Hemoglobin 14.7 g/dL (14.1-18.0); Lymphocytes # 1.5 K/mm3 (0.7-4.5); Lymphocytes % 15.2 % (10-50); Mean Corpuscular HGB Conc 33.2 g/dL (31.8-35.4); Mean Corpuscular Hemoglobin 29.6 pg (27.0-31.2); Mean Corpuscular Volume 89.3 fl (80-94); Mean Platelet Volume 9.6 fl (7.4-10.4); Monocytes # 1.1 K/mm3 (0.1-1.0); Neutrophils # 6.8 K/mm3 (1.8-7.8); Neutrophils % 69.7 % (37.0-80.0); Platelet Count 362 K/mm3 (142-424); Red Blood Count 4.96 M/mm3 (4.60-6.20); Red Cell Distribution Width 13.2 % (11.5-17.5); White Blood Count 9.7 K/mm3 (4.8-10.8)
[2025-02-03 19:07] LABS: Alanine Aminotransferase 16 U/L (12-78); Albumin Level 3.9 g/dl (3.5-5.0); Alkaline Phosphatase 78 U/L (38-126); Anion Gap 12.2 mEq/L (5-15); Aspartate Amino Transferase 22 U/L (17-59); Bilirubin,Total 0.5 mg/dl (0.2-1.3); Blood Urea Nitrogen 26 mg/dl (9-20); Calcium 9.5 mg/dl (8.4-10.2); Carbon Dioxide 27 mmol/L (22.0-30.0); Chloride 97 mmol/L (98-107); Estimated Glomerular Filt Rate 58 ml/min (>60); GFR (African American) 70 ML/MIN (>60); Glucose 288 mg/dl (74-100); Potassium 4.2 mmoL/L (3.5-5.1); Sodium 132 mmol/L (136-145); Total Protein,Serum 5.9 g/dl (6.3-8.2)
== END 2025-02-03 23:59 | disposition home or self-care (01) ==
LOC: LAB.DROPOF 02-04 11:26
PROVIDERS: PCP Family Medicine; Visit Provider Family Medicine
DX: E03.9 Hypothyroidism, unspecified (principal); N18.31 Chronic kidney disease, stage 3a; E11.22 Type 2 diabetes mellitus with diabetic chronic kidney disease
CPT/HCPCS: 80053; 83036; 84443; 85025

== ENCOUNTER 2025-03-07 09:18 | Outpatient (CLI) | payer MEDICARE, OTHER, SELFPAY ==
[2025-03-07 09:39] LABS: Basophils # 0.1 K/mm3 (0-0.2); Basophils % 1.2 % (0.1-2.0); Eosinophils # 0.2 Kmm3 (0.0-0.4); Eosinophils % 2.4 % (0.1-12.0); Hematocrit 39.6 % (42.0-52.0); Hemoglobin 13.1 g/dL (14.1-18.0); Lymphocytes # 1.2 K/mm3 (0.7-4.5); Lymphocytes % 15.1 % (10-50); Mean Corpuscular HGB Conc 33.1 g/dL (31.8-35.4); Mean Corpuscular Hemoglobin 29.2 pg (27.0-31.2); Mean Corpuscular Volume 88.2 fl (80-94); Mean Platelet Volume 8.8 fl (7.4-10.4); Monocytes # 1.1 K/mm3 (0.1-1.0); Monocytes % 13.5 % (1.7-9.3); Neutrophils # 5.3 K/mm3 (1.8-7.8); Neutrophils % 66.6 % (37.0-80.0); Nucleated Red Blood Cells # 0 10^3/uL; Nucleated Red Blood Cells % 0 %; Platelet Count 290 K/mm3 (142-424); Red Blood Count 4.49 M/mm3 (4.60-6.20); Red Cell Distribution Width 13.7 % (11.5-17.5); Red Cell Distribution Width-SD 44.2 fL
[2025-03-07] MEDS: SODIUM CHLORIDE 0.9% 10ML SYR (RAD ONLY) 10 ML IV (09:40)
[2025-03-07] MEDS: IOPAMIDOL-370 (76%);100ML BOTTLE 75 ML IV (09:40)
--- NOTE | 2025-03-07 09:45 | CT_ITS ---
FINAL REPORT TECHNIQUE: After the administration of intravenous contrast, axial images were obtained through the abdomen and pelvis by computed tomography. This study was performed with technique to keep radiation doses as low as reasonably achievable, (ALARA). Individualized dose reduction techniques using automated exposure control or adjustment of the MA and/or KV according to the patient's size were employed. CLINICAL HISTORY: skin cancer FINDINGS: Abdomen: The lung bases are clear. There is a well-circumscribed, low-attenuation lesion in the lateral left hepatic lobe measuring 1.2 cm. Gallbladder is contracted. The spleen is at the upper limits of normal in size. The adrenals are normal. The pancreas is unremarkable. The kidneys enhance appropriately. The aorta is normal in caliber. There is no free fluid or adenopathy. Pelvis: The appendix is air-filled and at the upper limits of normal in size. There are scattered diverticula throughout the sigmoid and descending colon. The urinary bladder is incompletely distended. There is no free fluid or adenopathy. IMPRESSION: Descending and sigmoid diverticulosis without evidence of diverticulitis. Contracted gallbladder. Reviewed, Interpreted and Dictated by Tuan Dinh MD Transcribed by Jen Wyatt Authenticated and [facility]
[2025-03-07 09:55] LABS: Alanine Aminotransferase 13 U/L (12-78); Albumin Level 3.5 g/dl (3.5-5.0); Albumin/Globulin Ratio 1.3 (1.1-1.8); Alkaline Phosphatase 94 U/L (38-126); Anion Gap 7.2 mEq/L (5-15); Aspartate Amino Transferase 20 U/L (17-59); Bilirubin,Total 0.6 mg/dl (0.2-1.3); Blood Urea Nitrogen 21 mg/dl (9-20); Calcium 8.9 mg/dl (8.4-10.2); Carbon Dioxide 31 mmol/L (22.0-30.0); Chloride 101 mmol/L (98-107); Estimated Glomerular Filt Rate 58 ml/min (>60); GFR (African American) 70 ML/MIN (>60); Globulin 2.6 g/dL (1.3-3.2); Glucose 215 mg/dl (74-100); Potassium 3.2 mmoL/L (3.5-5.1); Sodium 136 mmol/L (136-145); Total Protein,Serum 6.1 g/dl (6.3-8.2)
[2025-03-07 10:09] LABS: T4 (Thyroxine) 8.8 ug/dl (5.53-11.0)
[2025-03-07 10:22] LABS: Thyroid Stimulating Hormone 2.81 uIU/mL (0.465-4.68)
--- NOTE | 2025-03-07 10:30 | CT_ITS ---
FINAL REPORT TECHNIQUE: Routine axial images were obtained from the lung apices to below the diaphragm following IV contrast administration. Individualized dose reduction techniques using automated exposure control or adjustment of the mA and/or kV according to the patient size were employed. CLINICAL HISTORY: skin cancer FINDINGS: Mediastinal vasculature is well-opacified. There is a pericardial effusion measuring 1.8 cm in depth. There is no pleural effusion. There are mild changes of centrilobular emphysema. Nodules are seen along the right major fissure measuring up to 5 mm on image 40 of series 4 favored represent intrafissural lymph nodes. There is a nodule in the posterior medial left lower lobe measuring 5 mm on image 40 of series 4. Nodules along the left major fissure measuring up to 5 mm also likely represent intrafissural lymph nodes. This is best seen on images 34-36 of series 4. The lungs are otherwise clear. IMPRESSION: 1.8 cm pericardial effusion. Bilateral pulmonary nodules, favor intrafissural lymph nodes on the right. Left nodules are indeterminate. Recommend 1 year follow-up per Fleischner criteria. Reviewed, Interpreted and Dictated by Tuan Dinh MD Transcribed by Jen Wyatt Authenticated and [facility]
== END 2025-03-07 09:35 | disposition home or self-care (01) ==
LOC: INF 09:20
PROVIDERS: PCP Family Medicine; Visit Provider Internal Medicine Medical Oncology
DX: C44.92 Squamous cell carcinoma of skin, unspecified (principal)
CPT/HCPCS: 36415; 71260; 74177; 80053; 84436; 84443; 85025; Q9967

== ENCOUNTER 2025-03-08 13:29 | Outpatient (CLI) | payer MEDICARE, OTHER, SELFPAY ==
[2025-03-08] MEDS: SODIUM CHLORIDE 0.9% 50ML BAG 50 ML IV (13:50)
[2025-03-08] MEDS: CEMIPLIMAB-RWLC 350 MG in 0.9 % SODIUM CHLORIDE 100 ML 214 MG IV (13:51)
[2025-03-08 14:00] VITALS: BP 99/56; PULSE 90; RESP 17; TEMP 36.9; O2SAT 95
[2025-03-08 14:15] VITALS: BP 94/63; PULSE 93; RESP 16
[2025-03-08 14:30] VITALS: BP 124/41; PULSE 91; RESP 16
== END 2025-03-08 14:45 | disposition home or self-care (01) ==
LOC: INF 13:31
PROVIDERS: PCP Family Medicine; Visit Provider Family Medicine
DX: C44.92 Squamous cell carcinoma of skin, unspecified (principal)
CPT/HCPCS: 96413; J9119

== ENCOUNTER 2025-03-30 11:21 | Outpatient (CLI) | payer MEDICARE, OTHER, SELFPAY ==
[2025-03-30 11:25] VITALS: BMI 19.3
[2025-03-30 11:32] LABS: Basophils # 0.1 K/mm3 (0-0.2); Basophils % 1.3 % (0.1-2.0); Eosinophils # 0.3 Kmm3 (0.0-0.4); Eosinophils % 2.8 % (0.1-12.0); Hematocrit 41.5 % (42.0-52.0); Hemoglobin 13.7 g/dL (14.1-18.0); Lymphocytes # 1.5 K/mm3 (0.7-4.5); Lymphocytes % 14.8 % (10-50); Mean Corpuscular Hemoglobin 29.3 pg (27.0-31.2); Mean Corpuscular Volume 88.7 fl (80-94); Mean Platelet Volume 8.5 fl (7.4-10.4); Monocytes # 1.3 K/mm3 (0.1-1.0); Monocytes % 12.6 % (1.7-9.3); Neutrophils # 6.8 K/mm3 (1.8-7.8); Neutrophils % 66.5 % (37.0-80.0); Nucleated Red Blood Cells # 0 10^3/uL; Nucleated Red Blood Cells % 0 %; Platelet Count 397 K/mm3 (142-424); Red Blood Count 4.68 M/mm3 (4.60-6.20); Red Cell Distribution Width 13.8 % (11.5-17.5); Red Cell Distribution Width-SD 44.9 fL; White Blood Count 10.2 K/mm3 (4.8-10.8)
[2025-03-30 11:39] LABS: Albumin Level 3.8 g/dl (3.5-5.0); Chloride 102 mmol/L (98-107); Potassium 3.1 mmoL/L (3.5-5.1); Sodium 136 mmol/L (136-145)
[2025-03-30 11:42] LABS: Alanine Aminotransferase 11 U/L (12-78); Albumin/Globulin Ratio 1.4 (1.1-1.8); Alkaline Phosphatase 111 U/L (38-126); Anion Gap 6.1 mEq/L (5-15); Aspartate Amino Transferase 18 U/L (17-59); Bilirubin,Total 0.6 mg/dl (0.2-1.3); Blood Urea Nitrogen 17 mg/dl (9-20); Carbon Dioxide 31 mmol/L (22.0-30.0); Creatinine Clearance Estimated 44 mL/min (50-200); Estimated Glomerular Filt Rate 58 ml/min (>60); GFR (African American) 70 ML/MIN (>60); Globulin 2.7 g/dL (1.3-3.2); Total Protein,Serum 6.5 g/dl (6.3-8.2)
[2025-03-30 11:43] LABS: Calcium 9.1 mg/dl (8.4-10.2); Glucose 246 mg/dl (74-100)
[2025-03-30] MEDS: CEMIPLIMAB-RWLC 350 MG in 0.9 % SODIUM CHLORIDE 100 ML 214 MG IV (12:42)
[2025-03-30] MEDS: SODIUM CHLORIDE 0.9% 50ML BAG 50 ML IV (12:42)
[2025-03-30 12:45] VITALS: BP 111/60; PULSE 75; RESP 18; O2SAT 98
[2025-03-30 13:30] VITALS: BP 112/63; PULSE 73; RESP 18; O2SAT 97
== END 2025-03-30 13:30 | disposition home or self-care (01) ==
LOC: INF 11:23
PROVIDERS: Visit Provider Internal Medicine Medical Oncology
DX: Z51.11 Encounter for antineoplastic chemotherapy (principal); C44.92 Squamous cell carcinoma of skin, unspecified
CPT/HCPCS: 80053; 84443; 85025; 96413; J9119

== ENCOUNTER 2025-04-20 10:34 | Outpatient (CLI) | payer MEDICARE, OTHER, SELFPAY ==
--- OUTSIDE RECORDS SUMMARY | 2025-02-23 13:45 | XMS_ITS | Encounter Summary ---
Author Organization [facility] Address [address] 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 0 11/23/2024 Have you been ANNOYED by people criticizing your drinking? 0 11/23/2024 Have you felt GUILTY about your drinking? 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 0 11/23/2024 CAGE Questionnaire Score 0 025 Sex and Gender Information Value Date Recorded Sex Assigned at Not on file Legal Sex Male 8:36 PM EDT Gender Identity Not on file Sexual Orientation Not on file documented as of this encounter Functional Status * Calculated C-SSRS Risk Score (Lifetime/Recent) Answer Date of Assessment Author No Risk Indicated 02/23/2025 1:43 PM EDT Milton Tripathienix R * Question Answer Date of Assessment Author 1. Wish to be (Past 1 Month) No 025 1:43 PM EDT Rigoberto Spurgeon R 2. Non-Specific Active Suici tyler Thoughts (Past 1 Month) No 02/23/2025 1:43 PM EDT Rigoberto Milton enix R 6. 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 TSH Routine 02/23/2025 1:57 PM EDT 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 COMPREHENSIVE METABOLIC PANEL, PLASMA Routine 02/23/2025 1:57 PM EDT 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 documented in this encounter Results * (ABNORMAL) Comprehensive Urine Drug Screening, Qualitative Assay, >= 27 Drug Classes (52:01 PM EDT) Acetaminophen Negative Negative 03/14/2025 12:21 PM EDT [facility] Alprazolam Negative Negative 03/14/2025 12:21 PM EDT [facility] Amantadine Negative Negative 03/14/2025 12:21 PM EDT [facility] Amitriptyline Negative Negative 03/14/2025 12:21 PM EDT [facility] Amphetamine Negative Negative 03/14/2025 12:21 PM EDT [facility] Atenolol Negative Negative 03/14/2025 12:21 PM EDT [facility] Benzoylecgonine Negative Negative 12:21 PM EDT [facility] Bisoprolol Negative Negative 03/14/2025 12:21 PM EDT [facility] Bupropion Negative Negative 03/14/2025 12:21 PM EDT [facility] Butalbital Negative Negative 03/14/2025 12:21 PM EDT [facility] Carbamazepine Negative Negative 03/14/2025 12:21 PM EDT [facility] Carisoprodol Negative Negative 03/14/2025 12:21 PM EDT [facility] Chlorpheniramine Negative Negative 03/14/20 12:21 PM EDT [facility] Citalopram Negative Negative 03/14/2025 12:21 PM EDT [facility] Clindamycin Negative Negative 03/14/2025 12:21 PM EDT [facility] Clonidine Negative Negative 03/14/2025 12:21 PM EDT [facility] Clopidogrel / Ticlopidine Negative Negative 03/14/2025 12:21 PM EDT [facility] Cocaethylene Negative Negative 03/14/2025 12:21 PM EDT [facility] Cocaine Negative Negative 03/14/2025 12:21 PM EDT [facility] Codeine Negative Negative 03/14/2025 12:21 PM EDT [facility] Cyclobenzaprine Negative Negative 12:21 PM EDT [facility] Desvenlafaxine Negative Negative 03/14/2025 12:21 PM EDT [facility] Dextromethorphan Negative Negative 03/14/20 12:21 PM EDT [facility] Diazepam Negative Negative 03/14/2025 12:21 PM EDT [facility] Diltiazem Negative Negative 03/14/2025 12:21 PM EDT [facility] Diphenhydramine Negative Negative 12:21 PM EDT [facility] Doxepine Negative Negative 03/14/2025 12:21 PM EDT [facility] Doxylamine Negative Negative 03/14/2025 12:21 PM EDT [facility] EDDP-Methadone metabolite Negative Negative 03/14/2025 12:21 PM EDT [facility] Fentanyl Negative Negative 03/14/2025 12:21 PM EDT [facility] Fluconazole Negative Negative 03/14/2025 12:21 PM EDT [facility] Fluoxetine Negative Negative 03/14/2025 12:21 PM EDT [facility] Guaifenesin Negative Negative 03/14/2025 12:21 PM EDT [facility] Haloperidol Negative Negative 03/14/2025 12:21 PM EDT [facility] Heroin/6-NAWAF Negative Negative 03/14/2025 12:21 PM EDT [facility] Hydrocodone Negative Negative 03/14/2025 12:21 PM EDT [facility] Hydroxyzine / Cetirizine metabolite Negative Negative 03/14/2025 12:21 PM EDT [facility] Ibuprofen Negative Negative 03/14/2025 12:21 PM EDT [facility] Imipramine Negative Negative 03/14/2025 12:21 PM EDT [facility] Ketamine Negative Negative 03/14/2025 12:21 PM EDT [facility] Labetolol Negative Negative 03/14/2025 12:21 PM EDT [facility] Lamotrigine Negative Negative 03/14/2025 12:21 PM EDT [facility] Levetiracetam Negative Negative 03/14/2025 12:21 PM EDT [facility] Lidocaine Negative Negative 03/14/2025 12:21 PM EDT [facility] MDA Negative Negative 03/14/2025 12:21 PM EDT [facility] MDMA Negative Negative 03/14/2025 12:21 PM EDT [facility] Memantine Negative Negative 03/14/2025 12:21 PM EDT [facility] Meperidine Negative Negative 03/14/2025 12:21 PM EDT [facility] Meprobamate Negative Negative 03/14/2025 12:21 PM EDT [facility] Metaxalone Negative Negative 03/14/2025 12:21 PM EDT [facility] Methamphetamine Negative Negative 12:21 PM EDT [facility] Methocarbamol Negative Negative 03/14/2025 12:21 PM EDT [facility] Methylecgonine Negative Negative 03/14/2025 12:21 PM EDT [facility] Metoclopramide Negative Negative 03/14/2025 12:21 PM EDT [facility] Metoprolol Negative Negative 03/14/2025 12:21 PM EDT [facility] Metronidazole Negative Negative 03/14/2025 12:21 PM EDT [facility] Midazolam Negative Negative 03/14/2025 12:21 PM EDT [facility] Midazolam Metabolite Negative Negative 03/14/2025 12:21 PM EDT [facility] Mirtazapine Negative Negative 03/14/2025 12:21 PM EDT [facility] Misc Test Result Negative Negative 03/14/20 12:21 PM EDT [facility] Naproxen Negative Negative 03/14/2025 12:21 PM EDT [facility] Nefazodone Negative Negative 03/14/2025 12:21 PM EDT [facility] Norfentanyl Negative Negative 03/14/2025 12:21 PM EDT [facility] Nortriptyline Negative Negative 03/14/2025 12:21 PM EDT [facility] Ordanstron Negative Negative 03/14/2025 12:21 PM EDT [facility] Oxcarbazepine Negative Negative 03/14/2025 12:21 PM EDT [facility] Oxycodone Negative Negative 03/14/2025 12:21 PM EDT [facility] Paroxethine Negative Negative 03/14/2025 12:21 PM EDT [facility] Phenobarbital Negative Negative 03/14/2025 12:21 PM EDT [facility] Phentermine Negative Negative 03/14/2025 12:21 PM EDT [facility] Phenytoin Negative Negative 03/14/2025 12:21 PM EDT [facility] Primidone Negative Negative 03/14/2025 12:21 PM EDT [facility] Promethazine Negative Negative 03/14/2025 12:21 PM EDT [facility] Propofol Negative Negative 03/14/2025 12:21 PM EDT [facility] Propranolol Negative Negative 03/14/2025 12:21 PM EDT [facility] Quetiapine Negative Negative 03/14/2025 12:21 PM EDT [facility] Quinine Negative Negative 03/14/2025 12:21 PM EDT [facility] Rantidine Negative Negative 03/14/2025 12:21 PM EDT [facility] Sertraline Negative Negative 03/14/2025 12:21 PM EDT [facility] Spironolactone Negative Negative 03/14/2025 12:21 PM EDT [facility] Tizanidine Negative Negative 03/14/2025 12:21 PM EDT [facility] Topiramate Negative Negative 03/14/2025 12:21 PM EDT [facility] Tramadol Negative Negative 03/14/2025 12:21 PM EDT [facility] Trazadone/ Trazadone metabolite Positive(A) Negative 03/14/2025 12:21 PM EDT [facility] Trimethoprim Negative Negative 03/14/2025 12:21 PM EDT [facility] Valproic Acid Negative Negative 03/14/2025 12:21 PM EDT [facility] Venlafaxine Negative Negative 03/14/2025 12:21 PM EDT [facility] Verapamil Negative Negative 03/14/2025 12:21 PM EDT [facility] Zolpidem Negative Negative 03/14/2025 12:21 PM EDT [facility] Xylazine Negative Negative 03/14/2025 12:21 PM EDT [facility] Urine Urine specimen obtained by clean catch procedure / Unknown Non-blood Collection / Unknown 02/23/2025 2:01 PM EDT 02/23/2025 2:29 PM EDT Narrative [facility] - 03/14/2025 12:21 PM EDT Test performed by: [employer] [address] [place] [address] us Sosa Deshpande MD LAB URINE ORDERABLES Final R esult [facility] [address] [place] [address] * (ABNORMAL) CBC and Differential (02/23/2025 1:57 PM EDT) WBC Count 7.67 3.70 - 10.30 10*3/uL LAB HEMATOLOGY METHOD 02/23/2025 2:39 PM EDT [facility] RBC Count 4.80 4.60 - 6.10 10*6/uL LAB HEMATOLOGY METHOD 02/23/2025 2:39 PM EDT [facility] HGB 14.1 13.7 - 17.5 g/dL LAB HEMATOLOGY METHOD 02/23/2025 2:39 PM EDT [facility] HCT 42.6 40.0 - 51.0 % LAB HEMATOLOGY METHOD 02/23/2025 2:39 PM EDT [facility] Platelet Count 287 155 - 369 10*3/uL LAB HEMATOLOGY METHOD 02/23/2025 2:39 PM EDT [facility] MCV 89 79 - 98 fL LAB HEMATOLOGY METHOD 02/23/2025 2:39 PM EDT [facility] MCH 29.4 26.0 - 32.0 pg LAB HEMATOLOGY METHOD 02/23/2025 2:39 PM EDT [facility] MCHC 33.1 30.7 - 35.5 g/dL LAB HEMATOLOGY METHOD 02/23/2025 2:39 PM EDT [facility] RDW 13.5 11.5 - 14.5 % LAB HEMATOLOGY METHOD 02/23/2025 2:39 PM EDT [facility] MPV 9.1 8.8 - 12.5 fL LAB HEMATOLOGY METHOD 02/23/2025 2:39 PM EDT [facility] nRBC 0.0 <=0.0 per 100 WBCs LAB HEMATOLOGY METHOD 02/23/2025 2:39 PM EDT [facility] Differential Type Automated LAB HEMATOLOGY METHOD 02/23/2025 2:39 PM EDT [facility] Neutrophils % 68 % LAB HEMATOLOGY METHOD 02/23/2025 2:39 PM EDT [facility] Lymphocytes % 17 % LAB HEMATOLOGY METHOD 02/23/2025 2:39 PM EDT [facility] Monocytes % 10 % LAB HEMATOLOGY METHOD 02/23/2025 2:39 PM EDT [facility] Eosinophils % 3 % LAB HEMATOLOGY METHOD 02/23/2025 2:39 PM EDT [facility] Basophils % 1 % LAB HEMATOLOGY METHOD 02/23/2025 2:39 PM EDT [facility] Immature Granulocytes % 1 % LAB HEMATOLOGY METHOD 02/23/2025 2:39 PM EDT [facility] Neutrophils Absolute 5.15 1.60 - 6.10 10*3/uL LAB HEMATOLOGY METHOD 02/23/2025 2:39 PM EDT [facility] Lymphocytes Absolute 1.32 1.20 - 3.90 10*3/uL LAB HEMATOLOGY METHOD 02/23/2025 2:39 PM EDT [facility] Monocytes Absolute 0.79 0.30 - 0.90 10*3/uL LAB HEMATOLOGY METHOD 02/23/2025 2:39 PM EDT [facility] Eosinophils Absolute 0.21 0.00 - 0.50 10*3/uL LAB HEMATOLOGY METHOD 02/23/2025 2:39 PM EDT [facility] Basophils Absolute 0.10 0.00 - 0.10 10*3/uL LAB HEMATOLOGY METHOD 02/23/2025 2:39 PM EDT [facility] Immature Granulocytes Absolute 0.10(H) 0.00 - 0.06 10*3/uL LAB HEMATOLOGY METHOD 02/23/2025 2:39 PM EDT [facility] Blood Venous blood specimen / Unknown Venipuncture / Unknown 02/23/2025 1:57 PM EDT 02/23/2025 2:29 PM EDT Narrative [facility] - 02/23/2025 2:39 PM EDT Therapeutic decision making should be based on absolute values, rather than percentages. us Sosa Deshpande MD LAB BLOOD ORDERABLES Final R esult [facility] [address] [place] [address] * (ABNORMAL) Comprehensive Metabolic Panel, Plasma (02/23/2025 1:57 PM EDT) Glucose, Plasma 293(H) 74 - 99 mg/dL 02/23/2025 3:06 PM EDT [facility] BUN, Plasma 21 8 - 23 mg/dL 02/23/2025 3:06 PM EDT [facility] Creatinine, Plasma 1.17 0.70 - 1.20 mg/dL 02/23/2025 3:06 PM EDT [facility] BUN/Creatinine Ratio 18 02/23/2025 3:06 PM EDT [facility] Sodium, Plasma 135(L) 136 - 145 mmol/L 02/23/2025 3:06 PM EDT [facility] Potassium, Plasma 3.5(L) 3.6 - 4.9 mmol/L 02/23/2025 3:06 PM EDT [facility] Chloride, Plasma 96(L) 97 - 107 mmol/L 02/23/2025 3:06 PM EDT [facility] CO2, Plasma 27 22 - 29 mmol/L 02/23/2025 3:06 PM EDT [facility] Anion Gap 12 6 - 16 mmol/L 02/23/2025 3:06 PM EDT [facility] Total Calcium, Plasma 9.5 8.9 - 10.2 mg/dL 02/23/2025 3:06 PM EDT [facility] Total Protein 6.4 6.3 - 7.9 g/dL 02/23/2025 3:06 PM EDT [facility] Albumin, Plasma 3.9 3.5 - 5.2 g/dL 02/23/2025 3:06 PM EDT [facility] AST, Plasma 19 10 - 50 U/L 02/23/2025 3:06 PM EDT [facility] Comment:Hemolyzed, result ma y be falsely increased. ALT, Plasma 14 10 - 50 U/L 02/23/2025 3:06 PM EDT [facility] Alkaline Phosphatase, Plasma 93 40 - 115 U/L 02/23/2025 3:06 PM EDT [facility] Total Bilirubin, Plasma 0.4 0.2 - 1.1 mg/dL 02/23/2025 3:06 PM EDT [facility] eGFRcr 63.0 mL/min/1.7 3m*2 02/23/2025 3:06 PM EDT [facility] Comment:Reported eGFRcr in m L/min/1.73m2 is based the CKD-EPI 2020 equation that does not use a race coefficient. Blood Venous blood specimen / Unknown Venipuncture / Unknown 02/23/2025 1:57 PM EDT 02/23/2025 2:22 PM EDT Sosa Deshpande MD LAB BLOOD ORDERABLES Final R esult Performing Organization Address City/[facility]/ZIP Co de Phone Number [facility] [address] [place] [address] * Thyroid Stimulating Hormone, Plasma (02/23/2025 1:57 PM EDT) Thyroid Stimulating Hormone, Plasma 3.88 0.40 - 4.20 uIU/mL 02/23/2025 3:06 PM EDT [facility] Blood Venous blood specimen / Unknown Venipuncture / Unknown 02/23/2025 1:57 PM EDT 02/23/2025 2:22 PM EDT us Sosa Deshpande MD LAB BLOOD ORDERABLES Final R esult Performing Organization Address City/[facility]/ZIP Co de Phone Number [address] [address] documented in this encounter Visit Diagnoses Diagnosis 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
--- OUTSIDE RECORDS SUMMARY | 2025-02-23 14:10 | XMS_ITS | Encounter Summary ---
Author Organization [facility] Address [address] 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 Sosa Deshpande MD [address] [facility] [address] [place] [address] Phone: tel: fax: Referral ID Status Reason Start Date Expiration Date Visits Requested Visits Authorized [id number] Authorized Specialty Services Required 02/23/2025 08/25/2026 1 1 Scheduling Instructions Stat referral to BillyVu Soliman Reason for Visit * Reason Comments New Patient * Consultation (Routine) - Closed Specialty Diagnoses / Procedures Referred By Contac t Referred To Contact Medical Oncology / Hematology and Oncology Diagnoses 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 Dipesh Riley, PA [address] [facility] [address] [place] [address] Phone: tel: fax: [facility] [address] [facility], [address]nd [place] [address] Phone: tel: fax:[phone] Referral ID Status Reason Start Date Expiration Date V isits Requested Visits Authorized [id number] Closed Specialty Services Required 02/14/2025 08/16/2026 1 1 Encounter Details Date Type Department Care Team ([facility] st Contact Info) Description 02/23/2025 2:10 PM EDT Office Visit [facility] [address] [facility], [address] [place] [phone] Sosa Deshpande MD [address] [facility] [address] [place] [address] 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 0 11/23/2024 CAGE Questionnaire Score 0 025 Sex and Gender Information Value Date Recorded Sex Assigned at Not on file Legal Sex Male 8:36 PM EDT Gender Identity Not on file Sexual Orientation Not on file documented as of this encounter Last Filed Vital Signs Vital Sign Reading Time Taken Comments Blood Pressure 105/65 02/23/2025 1:41 PM EDT Pulse 72 02/23/2025 1:41 PM EDT Temperature 36.3 C (97.4 F) 02/23/2025 1:41 PM EDT Respiratory Rate 16 02/23/2025 1:41 PM EDT Oxygen Saturation 97% 02/23/2025 1:41 PM EDT Inhaled Oxygen Concentration - - Weight 63.6 kg (140 lb 3.4 oz) 02/23/2025 1:41 P M EDT Height - - Body Mass Index 19.56 02/14/2025 2:55 PM EDT documented in this encounter Functional Status * Calculated C-SSRS Risk Score (Lifetime/Recent) Answer Date of Assessment Author No Risk Indicated 02/23/2025 1:43 PM EDT [place], [place] * Question Answer Date of Assessment Author 1. Wish to be (Past 1 Month) No 025 1:43 PM EDT Rigoberto [place] R 2. Non-Specific Active Suici tyler Thoughts (Past 1 Month) No 02/23/2025 1:43 PM EDT Rigoberto [place] enix R 6. Suicidal Behavior (Lifetime) No 1:43 PM EDT Rigoberto [place] documented as of this encounter Miscellaneous Notes * Progress Notes - Sosa Deshpande MD - 02/23/2025 2:10 PM EDT Images from the original note were not included. Patient Information Patient Name: Gage De La Vega Date of : 09/15/1946 REFERRING PHYSICIAN: Dipesh Riley PA [address] [address] Encounter Date: 02/23/2025 Treatment Diagnosis: Cancer Staging No matching staging information was found for the patient. Gage De La Vega is a 78 y.o. 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 History of Present Illness: he presents for initial medical oncology evaluation and consultation on possible therapies for thisrecurrent malignancy. He denies fever, or chills, dysuria, hematuria, constipation, melena, diarrhea, hematochezia, hematemesis, abdominal pain, shortness of breath, cough, sputum production, mental status changes, neuropathy, chest pain, palpitations, rash, itching, dysphagia, voice changes, hearing loss, visual changes, stridor. He has developed rapidly growing dermal mets during radiation therapy to the left neck. 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 S/p radiation therapy and oral chemotherapy (presumed capecitabine). He has a remote history of squamous cell carcinoma of the skin on the left cheek. Deeloped a neck mass and PET/CT 10/28/24 showed a left neck mass without distant disease. Diagnosis of metastatic squamous cell carcinoma to the left neck. S/p radical resection of left neck and face, left superficial partial parotidectomy, left modified radical neck dissection, and left supraclavicular flap reconstruction on November 22, 2024. Began radiation therapy in [place] in the 1st week of January. Radiation stopped treatments due todevelopment of neck mass on his left neck and he was sent back to Dr. Aguiar. 02/14/25 of SUBCUTANEOUS NODULES, LEFT NECK: POSITIVE FOR MALIGNANCY, RECURRENT / METASTATIC SQUAMOUSCELL CARCINOMA. He was restarted on radiation therapy to include the dermal mets on 02/22/25. 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 Past Medical, Surgical, Family and Social History Medical History[1] Surgical History[2] his family history includes Colon cancer in his brother and mother; No Known Problems in his father. he reports that he has never smoked. He has been exposed to tobacco smoke. His smokeless tobacco use includes chew. He reports that he does not drink alcohol and does not use drugs. Social Drivers of Health with Concerns Food Insecurity: Not on file Housing Stability: Not on file Tobacco Use: High Risk (02/23/2025) Patient History Smoking Tobacco Use: Never Smokeless Tobacco Use: Current Passive Exposure: Past Transportation Needs: Not on file Depression: Not on file Utilities: Not on file Stress: Not on file Intimate Partner Violence: Not on file Physical Activity: Not on file Social Connections: Not on file Financial Resource Strain: Not on file Allergies and Adverse Drug Reactions Patient has no known allergies. Medications Current Medications[3] Objective Performance Status 2: Ambulatory and capable of all self-care but unable to work. Up & about >50% waking hours Blood pressure 105/65, pulse 72, temperature 36.3 ??C (97.4 ??F), temperature source Oral, resp. rate 16, weight 63.6 kg (140 lb 3.4 oz), SpO2 97%. EXAM Physical Exam Constitutional: General: He is not in acute distress. Appearance: He is not ill-appearing. HENT: Head: Normocephalic and atraumatic. Right Ear: External ear normal. Left Ear: External ear normal. Nose: Nose normal. Eyes: Extraocular Movements: Extraocular movements intact. Pupils: Pupils are equal, round, and reactive to light. Cardiovascular: Rate and Rhythm: Normal rate and regular rhythm. Heart sounds: No murmur heard. No friction rub. No gallop. Pulmonary: Effort: Pulmonary effort is normal. No respiratory distress. Breath sounds: Normal breath sounds. No stridor. No wheezing, rhonchi or rales. Abdominal: General: Bowel sounds are normal. There is no distension. Palpations: There is no mass. Tenderness: There is no abdominal tenderness. Musculoskeletal: General: No swelling. Cervical back: Tenderness present. Right lower leg: No edema. Left lower leg: No edema. Lymphadenopathy: Cervical: Cervical adenopathy present. Skin: General: Skin is warm and dry. Findings: No erythema or rash. Neurological: Mental Status: He is alert. Cranial Nerves: No cranial nerve deficit or dysarthria. Sensory: No sensory deficit. Psychiatric: Mood and Affect: Mood normal. Behavior: Behavior normal. LABORATORIES AND STUDIES: reviewed by me personally today to monitor for cancer related drug toxicity and treatment related custodial toxicity CBC WBC 7.67 Hgb 14.1 PLT 287 HCT 42.6 Lab Results Component Value Date NEUTROABS 5.15 02/23/2025 BASIC METABOLIC PANEL Na 135 Cl 96 BUN 21 Gluc 293 K 3.5 Co2 27 Creat 1.17 LIVER FUNCTION TESTING Tot Prot 6.4 AST 19 Tot bili 0.4 ALT 14 Alkphos 93 Ca 9.5 Lab Results Component Value Date TSH 3.88 02/23/2025 Radiology: I independently visualized the recent imaging given the patient's symptoms and oncologic history 10/28/24 PET PET/CT Skull Base-Mid Thigh (Whole Body) Impression Hypermetabolic mass in the left neck most consistent with metastatic lymphadenopathy. Pericardial effusion. Left lower lobe lung nodules, that are not FDG avid but are too small for sensitivity for PET. Images reviewed, interpreted, and dictated by Dr. Lisa Martinez. Transcribed by Katiana Elkins PA-C. Pathology: Final Diagnosis (no units) Date/Time Value 02/14/2025 1527 A. SUBCUTANEOUS NODULES, LEFT NECK, SUPERFICIAL FINE NEEDLE ASPIRATION: - POSITIVE FOR MALIGNANCY, RECURRENT / METASTATIC SQUAMOUS CELL CARCINOMA Comment (no units) Date/Time Value 11/22/2024 0832 The AJCC 8th ed. herson stage of the patient's cutaneous squamous cell carcinoma is pN3b (metastasisin multiple ipsilateral nodes, any with DARSHANA+). Intraoperative Consultation (no units) Date/Time Value 11/22/2024 0832 A. RADICAL RESECTION LEFT FACE 9-12 O'CLOCK-FROZEN FSA: NEGATIVE FOR MALIGNANCY. fs B. RADICAL RESECTION LEFT FACE 12-3 O'CLOCK-FROZEN FSB: NEGATIVE FOR MALIGNANCY. C. RADICAL RESECTION LEFT FACE 3-6 O'CLOCK-FROZEN FSC: NEGATIVE FOR MALIGNANCY. D. RADICAL RESECTION LEFT FACE 6-9 O'CLOCK-FROZEN FSD: POSITIVE FOR INVASIVE CARCINOMA. E. 6 TO 9 ADDITIONAL MARGIN FSE: NEGATIVE FOR MALIGNANCY. Assessment/Plan 1. 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 This occurred during radiation therapy but may not have been included in the radiation therapy port. He has had re-simulation and has begun further radiation to the dermal mets. This represents a life threatening illness for which urgent cancer treatment is indicated. - I obtained information from patient or next of kin ([id number]). Pertinent history is reviewed with family member due to the patient's condition. - I independently visualized and reviewed the current radiology and pathology findings with the patient in detail and answered all questions. I agree that this shows recurrent dermal mets that are growing rapidly. - I extensively reviewed the staging and prognosis of this cancer and the risk and benefits of starting immunotherapy and provided information sheets. - He will continue radiation therapy and has requested to be seen by Dr. Sanders in [place]. I wouldrecommend either cemiplimab or pembrolizumab to begin concurrent with radiation therapy. - I reviewed the records from Chip Bryan MD (Inactive) and records from Dr. Aguiar and interpreted these records in light of the current diagnosis and plan. I have reviewed and updated the problem list and medical history. I discussed this case with Dr. Aguiar in detail who concurs thatfurther surgery is not an option and coordinated the care of the patient. - I reviewed liver and renal function as well as bone marrow function in relationship to this patient's ability to tolerate systemic cancer treatment - no concerns - I counseled the patient regarding risk and benefits of immunotherapy including infection, injury to organs (kidneys, liver, nerves), immunologic disorders including hypothyroidism, colitis, pneumonitis, skin rash, and more rare forms of immune side effects, in addition to nausea, vomiting and fatigue and gave teaching sheets on these side effects. - I have ordered next generation sequencing for this patient due to the possible targeted therapiesindicated for this stage of refractory cancer. - RTC prn 2. Pain related to neoplasm: - I have evaluated the prescription pain medications currently in use and added back hydrocodone for his pain - The patient continues to experience pain directly related to their neoplasm requiring monitoring and adjustments in dosage and frequency of narcotic and adjunctive medications by me. EPHRAIM report reviewed and will be reviewed periodically. 3. Protein-calorie malnutrition secondary to cancer: mild - continue supplements for nutritional support 4. Monitoring for the emergence of hypothyroidism due to radiation - TSH is WITHIN NORMAL LIMITS today - This will be periodically monitored. 5. Anticipated Chemotherapy Induced Nausea: - Continue ondansetron MD GALINDO Vitale [facility] [address] [facility] [phone] Dipesh Riley S, CEL[place] [address] [facility] [address] [place] [address] Chip Zamarripa MD (Inactive) Orders Placed This Encounter Procedures CBC and Differential Comprehensive Metabolic Panel, Plasma Thyroid Stimulating Hormone, Plasma Comprehensive Urine Drug Screening, Qualitative Assay, >= 27 Drug Classes Ambulatory referral to Hematology Oncology/Medical Oncology [1] Past Medical History: Diagnosis Date Benign essential hypertension 12/13/2020 Hypercholesterolemia 02/23/2025 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 02/23/2025 Old myocardial infarction History of myocardial infarction Personal history of other diseases of male genital organs History of BPH Personal history of other diseases of the circulatory system History of congestive heart failure Personal history of other diseases of the digestive system History of gastroesophageal reflux (GERD) Personal history of other diseases of the musculoskeletal system and connective tissue History of arthritis Personal history of other diseases of the respiratory system History of asthma Personal history of urinary calculi History of renal calculi 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 Under [place] law, monthly prescriptions (30 days) can be refilled at 25 days and three-month prescriptions (90 days) at 80 days. Please contact the insurance company with questions if refills are denied., Disp: 100 tablet, Rfl: 0 Aspirin Low Dose 81 MG EC tablet, Take 1 tablet (81 mg) by mouth 1 (one) time each day., Disp: , Rfl: empagliflozin (Jardiance) 25 MG, Take 1 tablet (25 mg) by mouth 1 (one) time each day., Disp: , Rfl: furosemide (Lasix) 40 MG tablet, Take 0.5-1 tablets (20-40 mg) by mouth 1 (one) time each day if needed., Disp: , Rfl: isosorbide mononitrate ER (Imdur) 30 MG 24 hr tablet, Take 1 tablet (30 mg) by mouth 1 (one) time each day., Disp: , Rfl: levothyroxine (Synthroid, Levoxyl) 50 MCG tablet, Take 1 tablet (50 mcg) by mouth 1 (one) time eachday before breakfast., Disp: , Rfl: lidocaine (Xylocaine) 5 % ointment, Apply TO tenderness in AREA of incisional scar ON THE LEFT sideof THE chest/neck/arm FOUR TIMES DAILY NEEDED FOR PAIN, Disp: , Rfl: ondansetron ODT (Zofran-ODT) 4 MG disintegrating tablet, Take 1 tablet (4 mg) by mouth every 6 (six) hours if needed for nausea or vomiting., Disp: 20 tablet, Rfl: 0 pravastatin (Pravachol) 20 MG tablet, Take 1 tablet (20 mg) by mouth 1 (one) time each day., Disp: , Rfl: traZODone (Desyrel) 50 MG tablet, TAKE 1/2 TABLET BY MOUTH EVERY NIGHT AT BEDTIME NEEDED FOR insomnia, Disp: , Rfl: HYDROcodone-acetaminophen ([place]) 5-325 MG tablet, Take 1 tablet by mouth every 6 hours as needed for moderate pain., Disp: 120 tablet, Rfl: 0 documented in this encounter Plan of Treatment Scheduled Referrals Name Type Priority Associated Diagnoses Order Schedule Ambulatory referral to Hematology Oncology/Medical Oncology Outpatient Referral Routine 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 + IHCs and Other Tests by Tumor Type (02/23/2025 2:57 PM EDT) Pathologist Rebecca DUDLEY Genomic Loss of Heterozygosity - [place] Low 4% 03/07/2025 8:57 PM EDT [employer] SANDY Microsatellite Instability - [place] Stable 03/07/2025 8:57 PM EDT [employer] Tumor Mutational Cobb - [place] High 24 per Mb 03/07/2025 8:57 PM EDT [employer] Her2/Teresa Negative 03/07/2025 8:57 PM EDT [employer] PD-L1 (SP142) Negative 03/07/2025 8:57 PM EDT [employer] SANDY HLA-A - [place] A*02:01,A*32 :01 03/07/2025 8:57 PM EDT [employer]ZA[employer]twine HLA-B - [place] B*40:02,B*44 :02 03/07/2025 8:57 PM EDT [employer] SANDY HLA-C - [place] C*02:02,C*05 :01 03/07/2025 8:57 PM EDT [employer] Tissue Non-blood Collection / Unknown 02/23/2025 2:57 PM EDT 02/24/2025 2:57 PM EDT Narrative This result has genomic variants that were not included in this document. us Sosa Deshpande MD LAB MOL DX NO SOURCE Final R esult [employer] [id number] [address], [place] [phone] * (ABNORMAL) Comprehensive Urine Drug Screening, Qualitative Assay, >= 27 Drug Classes (52:01 PM EDT) Acetaminophen Negative Negative 03/14/2025 12:21 PM EDT [facility] Alprazolam Negative Negative 03/14/2025 12:21 PM EDT [facility] Amantadine Negative Negative 03/14/2025 12:21 PM EDT [facility] Amitriptyline Negative Negative 03/14/2025 12:21 PM EDT [facility] Amphetamine Negative Negative 03/14/2025 12:21 PM EDT [facility] Atenolol Negative Negative 03/14/2025 12:21 PM EDT [facility] Benzoylecgonine Negative Negative 12:21 PM EDT [facility] Bisoprolol Negative Negative 03/14/2025 12:21 PM EDT [facility] Bupropion Negative Negative 03/14/2025 12:21 PM EDT [facility] Butalbital Negative Negative 03/14/2025 12:21 PM EDT [facility] Carbamazepine Negative Negative 03/14/2025 12:21 PM EDT [facility] Carisoprodol Negative Negative 03/14/2025 12:21 PM EDT [facility] Chlorpheniramine Negative Negative 03/14/20 12:21 PM EDT [facility] Citalopram Negative Negative 03/14/2025 12:21 PM EDT [facility] Clindamycin Negative Negative 03/14/2025 12:21 PM EDT [facility] Clonidine Negative Negative 03/14/2025 12:21 PM EDT [facility] Clopidogrel / Ticlopidine Negative Negative 03/14/2025 12:21 PM EDT [facility] Cocaethylene Negative Negative 03/14/2025 12:21 PM EDT [facility] Cocaine Negative Negative 03/14/2025 12:21 PM EDT [facility] Codeine Negative Negative 03/14/2025 12:21 PM EDT [facility] Cyclobenzaprine Negative Negative 12:21 PM EDT [facility] Desvenlafaxine Negative Negative 03/14/2025 12:21 PM EDT [facility] Dextromethorphan Negative Negative 03/14/20 12:21 PM EDT [facility] Diazepam Negative Negative 03/14/2025 12:21 PM EDT [facility] Diltiazem Negative Negative 03/14/2025 12:21 PM EDT [facility] Diphenhydramine Negative Negative 12:21 PM EDT [facility] Doxepine Negative Negative 03/14/2025 12:21 PM EDT [facility] Doxylamine Negative Negative 03/14/2025 12:21 PM EDT [facility] EDDP-Methadone metabolite Negative Negative 03/14/2025 12:21 PM EDT [facility] Fentanyl Negative Negative 03/14/2025 12:21 PM EDT [facility] Fluconazole Negative Negative 03/14/2025 12:21 PM EDT [facility] Fluoxetine Negative Negative 03/14/2025 12:21 PM EDT [facility] Guaifenesin Negative Negative 03/14/2025 12:21 PM EDT [facility] Haloperidol Negative Negative 03/14/2025 12:21 PM EDT [facility] Heroin/6-NAWAF Negative Negative 03/14/2025 12:21 PM EDT [facility] Hydrocodone Negative Negative 03/14/2025 12:21 PM EDT [facility] Hydroxyzine / Cetirizine metabolite Negative Negative 03/14/2025 12:21 PM EDT [facility] Ibuprofen Negative Negative 03/14/2025 12:21 PM EDT [facility] Imipramine Negative Negative 03/14/2025 12:21 PM EDT [facility] Ketamine Negative Negative 03/14/2025 12:21 PM EDT [facility] Labetolol Negative Negative 03/14/2025 12:21 PM EDT [facility] Lamotrigine Negative Negative 03/14/2025 12:21 PM EDT [facility] Levetiracetam Negative Negative 03/14/2025 12:21 PM EDT [facility] Lidocaine Negative Negative 03/14/2025 12:21 PM EDT [facility] MDA Negative Negative 03/14/2025 12:21 PM EDT [facility] MDMA Negative Negative 03/14/2025 12:21 PM EDT [facility] Memantine Negative Negative 03/14/2025 12:21 PM EDT [facility] Meperidine Negative Negative 03/14/2025 12:21 PM EDT [facility] Meprobamate Negative Negative 03/14/2025 12:21 PM EDT [facility] Metaxalone Negative Negative 03/14/2025 12:21 PM EDT [facility] Methamphetamine Negative Negative 12:21 PM EDT [facility] Methocarbamol Negative Negative 03/14/2025 12:21 PM EDT [facility] Methylecgonine Negative Negative 03/14/2025 12:21 PM EDT [facility] Metoclopramide Negative Negative 03/14/2025 12:21 PM EDT [facility] Metoprolol Negative Negative 03/14/2025 12:21 PM EDT [facility] Metronidazole Negative Negative 03/14/2025 12:21 PM EDT [facility] Midazolam Negative Negative 03/14/2025 12:21 PM EDT [facility] Midazolam Metabolite Negative Negative 03/14/2025 12:21 PM EDT [facility] Mirtazapine Negative Negative 03/14/2025 12:21 PM EDT [facility] Misc Test Result Negative Negative 03/14/20 12:21 PM EDT [facility] Naproxen Negative Negative 03/14/2025 12:21 PM EDT [facility] Nefazodone Negative Negative 03/14/2025 12:21 PM EDT [facility] Norfentanyl Negative Negative 03/14/2025 12:21 PM EDT [facility] Nortriptyline Negative Negative 03/14/2025 12:21 PM EDT [facility] Ordanstron Negative Negative 03/14/2025 12:21 PM EDT [facility] Oxcarbazepine Negative Negative 03/14/2025 12:21 PM EDT [facility] Oxycodone Negative Negative 03/14/2025 12:21 PM EDT [facility] Paroxethine Negative Negative 03/14/2025 12:21 PM EDT [facility] Phenobarbital Negative Negative 03/14/2025 12:21 PM EDT [facility] Phentermine Negative Negative 03/14/2025 12:21 PM EDT [facility] Phenytoin Negative Negative 03/14/2025 12:21 PM EDT [facility] Primidone Negative Negative 03/14/2025 12:21 PM EDT [facility] Promethazine Negative Negative 03/14/2025 12:21 PM EDT [facility] Propofol Negative Negative 03/14/2025 12:21 PM EDT [facility] Propranolol Negative Negative 03/14/2025 12:21 PM EDT [facility] Quetiapine Negative Negative 03/14/2025 12:21 PM EDT [facility] Quinine Negative Negative 03/14/2025 12:21 PM EDT [facility] Rantidine Negative Negative 03/14/2025 12:21 PM EDT [facility] Sertraline Negative Negative 03/14/2025 12:21 PM EDT [facility] Spironolactone Negative Negative 03/14/2025 12:21 PM EDT [facility] Tizanidine Negative Negative 03/14/2025 12:21 PM EDT [facility] Topiramate Negative Negative 03/14/2025 12:21 PM EDT [facility] Tramadol Negative Negative 03/14/2025 12:21 PM EDT [facility] Trazadone/ Trazadone metabolite Positive(A) Negative 03/14/2025 12:21 PM EDT [facility] Trimethoprim Negative Negative 03/14/2025 12:21 PM EDT [facility] Valproic Acid Negative Negative 03/14/2025 12:21 PM EDT [facility] Venlafaxine Negative Negative 03/14/2025 12:21 PM EDT [facility] Verapamil Negative Negative 03/14/2025 12:21 PM EDT [facility] Zolpidem Negative Negative 03/14/2025 12:21 PM EDT [facility] Xylazine Negative Negative 03/14/2025 12:21 PM EDT [facility] Urine Urine specimen obtained by clean catch procedure / Unknown Non-blood Collection / Unknown 02/23/2025 2:01 PM EDT 02/23/2025 2:29 PM EDT Narrative [facility] - 03/14/2025 12:21 PM EDT Test performed by: [employer] [address] [place] [address] us Sosa Deshpande MD LAB URINE ORDERABLES Final R esult [facility] [address] [place] [address] * Thyroid Stimulating Hormone, Plasma (02/23/2025 1:57 PM EDT) Thyroid Stimulating Hormone, Plasma 3.88 0.40 - 4.20 uIU/mL 02/23/2025 3:06 PM EDT [facility] Blood Venous blood specimen / Unknown Venipuncture / Unknown 02/23/2025 1:57 PM EDT 02/23/2025 2:22 PM EDT us Sosa Deshpande MD LAB BLOOD ORDERABLES Final R esult [facility] [address] [place] [address] * (ABNORMAL) Comprehensive Metabolic Panel, Plasma (02/23/2025 1:57 PM EDT) Glucose, Plasma 293(H) 74 - 99 mg/dL 02/23/2025 3:06 PM EDT [facility] BUN, Plasma 21 8 - 23 mg/dL 02/23/2025 3:06 PM EDT [facility] Creatinine, Plasma 1.17 0.70 - 1.20 mg/dL 02/23/2025 3:06 PM EDT [facility] BUN/Creatinine Ratio 18 02/23/2025 3:06 PM EDT [facility] Sodium, Plasma 135(L) 136 - 145 mmol/L 02/23/2025 3:06 PM EDT [facility] Potassium, Plasma 3.5(L) 3.6 - 4.9 mmol/L 02/23/2025 3:06 PM EDT [facility] Chloride, Plasma 96(L) 97 - 107 mmol/L 02/23/2025 3:06 PM EDT [facility] CO2, Plasma 27 22 - 29 mmol/L 02/23/2025 3:06 PM EDT [facility] Anion Gap 12 6 - 16 mmol/L 02/23/2025 3:06 PM EDT [facility] Total Calcium, Plasma 9.5 8.9 - 10.2 mg/dL 02/23/2025 3:06 PM EDT [facility] Total Protein 6.4 6.3 - 7.9 g/dL 02/23/2025 3:06 PM EDT [facility] Albumin, Plasma 3.9 3.5 - 5.2 g/dL 02/23/2025 3:06 PM EDT [facility] AST, Plasma 19 10 - 50 U/L 02/23/2025 3:06 PM EDT [facility] Comment:Hemolyzed, result ma y be falsely increased. ALT, Plasma 14 10 - 50 U/L 02/23/2025 3:06 PM EDT [facility] Alkaline Phosphatase, Plasma 93 40 - 115 U/L 02/23/2025 3:06 PM EDT [facility] Total Bilirubin, Plasma 0.4 0.2 - 1.1 mg/dL 02/23/2025 3:06 PM EDT [facility] eGFRcr 63.0 mL/min/1.7 3m*2 02/23/2025 3:06 PM EDT [facility] Comment:Reported eGFRcr in m L/min/1.73m2 is based the CKD-EPI 2020 equation that does not use a race coefficient. Blood Venous blood specimen / Unknown Venipuncture / Unknown 02/23/2025 1:57 PM EDT 02/23/2025 2:22 PM EDT us Sosa Deshpande MD LAB BLOOD ORDERABLES Final R esult [facility] [address] [place] [address] * (ABNORMAL) CBC and Differential (02/23/2025 1:57 PM EDT) WBC Count 7.67 3.70 - 10.30 10*3/uL LAB HEMATOLOGY METHOD 02/23/2025 2:39 PM EDT [facility] RBC Count 4.80 4.60 - 6.10 10*6/uL LAB HEMATOLOGY METHOD 02/23/2025 2:39 PM EDT [facility] HGB 14.1 13.7 - 17.5 g/dL LAB HEMATOLOGY METHOD 02/23/2025 2:39 PM EDT [facility] HCT 42.6 40.0 - 51.0 % LAB HEMATOLOGY METHOD 02/23/2025 2:39 PM EDT [facility] Platelet Count 287 155 - 369 10*3/uL LAB HEMATOLOGY METHOD 02/23/2025 2:39 PM EDT [facility] MCV 89 79 - 98 fL LAB HEMATOLOGY METHOD 02/23/2025 2:39 PM EDT [facility] MCH 29.4 26.0 - 32.0 pg LAB HEMATOLOGY METHOD 02/23/2025 2:39 PM EDT [facility] MCHC 33.1 30.7 - 35.5 g/dL LAB HEMATOLOGY METHOD 02/23/2025 2:39 PM EDT [facility] RDW 13.5 11.5 - 14.5 % LAB HEMATOLOGY METHOD 02/23/2025 2:39 PM EDT [facility] MPV 9.1 8.8 - 12.5 fL LAB HEMATOLOGY METHOD 02/23/2025 2:39 PM EDT [facility] nRBC 0.0 <=0.0 per 100 WBCs LAB HEMATOLOGY METHOD 02/23/2025 2:39 PM EDT [facility] Differential Type Automated LAB HEMATOLOGY METHOD 02/23/2025 2:39 PM EDT [facility] Neutrophils % 68 % LAB HEMATOLOGY METHOD 02/23/2025 2:39 PM EDT [facility] Lymphocytes % 17 % LAB HEMATOLOGY METHOD 02/23/2025 2:39 PM EDT [facility] Monocytes % 10 % LAB HEMATOLOGY METHOD 02/23/2025 2:39 PM EDT [facility] Eosinophils % 3 % LAB HEMATOLOGY METHOD 02/23/2025 2:39 PM EDT [facility] Basophils % 1 % LAB HEMATOLOGY METHOD 02/23/2025 2:39 PM EDT [facility] Immature Granulocytes % 1 % LAB HEMATOLOGY METHOD 02/23/2025 2:39 PM EDT [facility] Neutrophils Absolute 5.15 1.60 - 6.10 10*3/uL LAB HEMATOLOGY METHOD 02/23/2025 2:39 PM EDT [facility] Lymphocytes Absolute 1.32 1.20 - 3.90 10*3/uL LAB HEMATOLOGY METHOD 02/23/2025 2:39 PM EDT [facility] Monocytes Absolute 0.79 0.30 - 0.90 10*3/uL LAB HEMATOLOGY METHOD 02/23/2025 2:39 PM EDT [facility] Eosinophils Absolute 0.21 0.00 - 0.50 10*3/uL LAB HEMATOLOGY METHOD 02/23/2025 2:39 PM EDT [facility] Basophils Absolute 0.10 0.00 - 0.10 10*3/uL LAB HEMATOLOGY METHOD 02/23/2025 2:39 PM EDT [facility] Immature Granulocytes Absolute 0.10(H) 0.00 - 0.06 10*3/uL LAB HEMATOLOGY METHOD 02/23/2025 2:39 PM EDT [facility] Blood Venous blood specimen / Unknown Venipuncture / Unknown 02/23/2025 1:57 PM EDT 02/23/2025 2:29 PM EDT Narrative [facility] - 02/23/2025 2:39 PM EDT Therapeutic decision making should be based on absolute values, rather than percentages. 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 Neoplasm related pain Neoplasm related pain (acute) (chronic) documented in this encounter Additional Health Concerns Assessment Noted Time A fall risk assessment has been complete d for the patient 02/23/2025 1:43 PM EDT A Body Mass Index follow-up plan has been documented for the patient 11/24/2024 9:28 AM EST documented as of this encounter Care Teams Mechanical Engineering Intern Relationship Specialty Start Date End Date Chip Zamarripa MD [address] [place] [id number] PCP - General 03/22/21 Sweta Abebe, RN Registered Nurse Hematology and Oncology 02/22/25 documented as of this encounter
--- OUTSIDE RECORDS SUMMARY | 2025-03-15 09:03 | XMS_ITS | Continuity of Care Document ---
Author Organization [facility] Phone Care Team Providers Care Certified Rehabilitation Counselor Name Role Phone KATHRYN BOOTH Unavailable Unavailable PABLO JEWELL Primary Attending PABLO JEWELL Admitting NO, DEFINED P Primary Care Unavailable MEDICATIONS HOME MEDICATIONS Status RXNORM NDC Medication Dose Route Frequency Dates Comments Reported By Updated By Drug Treatment Unknown DISCHARGE MEDICATIONS Status RXNORM NDC Medication Dose Route Frequency Dates Comments Physician Updated By No Discharge Medication Info rmation Available INPATIENT MEDICATIONS Status RXNORM NDC Medication Dose Route Frequency Rat e Quantity Dates Comments Physician Updated By No Inpatient Medication Info rmation Available SOCIAL HISTORY SOCIAL HISTORY SNOMED-CT Social History Element Description Effective Dates Offered Cessation Comment UpdatedBy [id number] Smoking Status Unknown If Ever Smoked SOCIAL HISTORY - Gender Sex: Male SOCIAL HISTORY - Status : status i nformation is not available Intention in Next Year: intention information is not available SOCIAL HISTORY - Sexual Behavior Sexual Orientation Gender Identity SNOMED-CT Description SNO MED -CT Description Activity Level No of Partners Partner Type UpdatedBy Information is not available HEALTH CONCERNS Problems Concern Status Health Concern problem infor mation not available. Smoking Status Status Years Used Consumed packs p er day Health Concern smoking histo ry information not available. Family History Concern Status Health Concern family histor y information not available. ENCOUNTERS ENCOUNTER INFORMATION Reason for Visit RADIATION Admission February 07, 2025 8:25:00 AM [facility] [address] [facility] [address] Discharge March 09, 2025 3:59:00 AM [facility] DISCH ARGED TO HOME OR SELF CARE ENCOUNTER DIAGNOSES Notes information is not cruzito ilable. Code System Diagnosis Onset Date Diagnosis information is not available. ABSTRACT DIAGNOSES Code System Diagnosis Updated By Z51.0 ICD10 ENCOUNTER FOR AN TINEOPLASTIC RADIATION THERAPY [id number] on March 15, 2025 1:00:34 PM [place] Z51.0 ICD10 ENCOUNTER FOR AN TINEOPLASTIC RADIATION THERAPY [id number] on March 15, 2025 1:00:35 PM [place] C44.309 ICD10 UNSPECIFIED [place] GNANT NEOPLASM OF SKIN OF OTHER PARTS OF FACE [id number] on March 15, 2025 1:00:39 PM UTC C77.0 ICD10 SECONDARY AND UN SPECIFIED MALIGNANT NEOPLASM OF LYMPH NODES OF HEAD, FACE AND NECK [id number] on March 15, 2025 1:00:43 PM [place] CARE TEAM Care Certified Rehabilitation Counselor Role KATHRYN BOOTH Referring PABLO JEWELL Primary Attending PABLO JEWELL Admitting DEFINED NO Primary Care CARE TEAM CARE biomass facilitator Role on Team Status Start Date End Date Update d By LEOBARDO Thomas Referring normal February 08, 2025 4:11:53 AM [facility] March 09, 2025 3:59:00 AM [place] GTCHDAYEND on February 08, 2025 4:11:53 AM [facility]ANTA GALAVIZ Attending normal February 08, 2025 4:11:53 AM [facility] March 09, 2025 3:59:00 AM [place] [facility] on February 08, 2025 4:11:53 AM [facility] Admitting normal February 08, 2025 4:11:53 AM [facility] March 09, 2025 3:59:00 AM [facility] GTCHDAYEND on February 08, 2025 4:11:53 AM [place] NO DEFINED PRIMARY C PCP normal February 07, 2025 8:25:44 AM [place] March 09, 2025 3:59:00 AM [facility] on February 08, 2025 4:11:53 AM [facility]
[2025-04-20 10:37] VITALS: BMI 18.9
[2025-04-20 10:45] LABS: Basophils # 0.1 K/mm3 (0-0.2); Basophils % 1.3 % (0.1-2.0); Eosinophils # 0.2 Kmm3 (0.0-0.4); Eosinophils % 2.8 % (0.1-12.0); Hematocrit 40.9 % (42.0-52.0); Hemoglobin 13.3 g/dL (14.1-18.0); Immature Granulocytes # 0.13 10^3uL; Immature Granulocytes % 1.9 %; Lymphocytes # 1.6 K/mm3 (0.7-4.5); Lymphocytes % 23.6 % (10-50); Mean Corpuscular HGB Conc 32.5 g/dL (31.8-35.4); Mean Corpuscular Hemoglobin 28.7 pg (27.0-31.2); Mean Corpuscular Volume 88.3 fl (80-94); Mean Platelet Volume 9.8 fl (7.4-10.4); Monocytes # 0.8 K/mm3 (0.1-1.0); Monocytes % 11.7 % (1.7-9.3); Neutrophils % 58.7 % (37.0-80.0); Nucleated Red Blood Cells # 0 10^3/uL; Nucleated Red Blood Cells % 0 %; Platelet Count 279 K/mm3 (142-424); Red Blood Count 4.63 M/mm3 (4.60-6.20); Red Cell Distribution Width 13.5 % (11.5-17.5); Red Cell Distribution Width-SD 43.5 fL; White Blood Count 6.9 K/mm3 (4.8-10.8)
--- OUTSIDE RECORDS SUMMARY | 2025-04-20 10:47 | XMS_ITS | Clinical Summary ---
Author Organization [employer] Address [address] [place] [address] Care Team Providers Care Restoration Officer Name Role Phone Unavailable Primary Care Provider Unavailabl e Social History Tobacco Use Types Packs/Day Years Used Date Smoking Tobacco: Never Assessed Sex and Gender Information Value Date Recorded Sex Assigned at Not on file Legal Sex Male 1:14 PM CDT Gender Identity Not on file Sexual Orientation Not on file Plan of Treatment Health Maintenance Due Date Last Done Comments Depression Screening (12+) 09/15/1956 Tobacco Cessation Counseling and Screening (12+) 09/15/1956 DTAP/TDAP/TD VACCINES (1 - Tdap) 09/15/1963 Shingles Vaccine (Zoster) (1 of 2) 09/15/1994 Respiratory Syncytial Virus (RSV) Adult or (1 - 1-dose 75+ series) 09/15/2019 Pneumococcal 50+ years (2 of 2 - PPSV23) 07/12/2020 07/12/2019 COVID-19 VACCINE ( - season) 07/10/202408/2021, 12/19/2020 Falls Risk Screening 11/09/2024 Influenza Vaccine (Season Ended) 2025 07/31/20 23, 08/13/2022
--- OUTSIDE RECORDS SUMMARY | 2025-04-20 10:47 | XMS_ITS | Data Portability ---
Author Organization [place] - [place] [facility] Address [address] [place] [address] Care Team Providers Care Digestion Operator Name Role Phone GURDEEP ROBERTS Primary Care Provider Assessment No assessment recorded. Plan of Treatment Reminders Order Date Submit Date Provider Last Modified By Organization Details Last Modified Time Details Appointments None record ed. Lab None record ed. Referral None record ed. Procedures None record ed. Surgeries None record ed. Imaging None record ed. Medication Orders None record ed. Patient TargetsNo targets recorded. Patient InstructionsNo instructions recorded. Reason for Referral None Reported. Results Created Date Observation Date Name Description Value Unit Range Abnormal Flag Note LastModifiedBy Organization Detail LastModifiedTime 12/20/1912/19/2024 MRI face w/w/o contr ast [facility] [address] [place] [address] Phone: Fax: Name: GAGE PAULSON Exam Date: : 944 Age 78 years Gender : M Access ion: [id number] Physic shania: PABLO JEWELL Facili ty: [place] Fac[place] ty HSV: Outpat ient Exam: MRI FACE W/W/O CONTRA ST MR FACE WITHOU T THEN WITH IV CONTRA ST, 025 2:53 PM [employer] INDICA TION: post op resect ion Additi onal Histor y: Malign ant neopla sm of the paroti d gland TECHNI QUE: Multip lanar, multis equenc e MR images were obtain ed of the brain before and after the admini strati on of intrav enous contra st as descri bed in the study. There are no prior studie s for compar mckenna. FINDIN GS: Sensit ivity of the exam is decrea sed by patien t motion . The left subman dibula r gland is surgic ally absent . Edema, soft tissue enhanc ement and surgic al clips are seen in the left subman dibula r region and along the inferi or margin of the left paroti d gland withou t visual izatio n of a focal mass. The paroti d and right subman dibula r glands are within normal limits . The tongue and muscle s of mastic ation are unrema rkable . The patien t is edentu lous. No bone marrow edema or enhanc ement is visual ized. The parana mat sinuse s are unrema rkable . IMPRES CHETAN: Surgic al absenc e of the left subman dibula r gland with edema and enhanc ement in the surgic al bed. No defini te mass is visual ized. Correl ation with any preope rative studie s would be of benefi t. Electr onical ly signed by: Evangelist Green MD 2024 08:41 AM EST RP Workst ation: [id number] Dictat ed By: Evangelist Green Transc ribed By: Transc ribed On: 025 3:53 PM Electr onical ly signed by: Evangelist Green 025 [facility] Legall y authen ticate d by HAKAN WILLOUGHBY 12-19 15:53: 00 CC'ed Logic: Orderi ng Provid er: FANTA SHAH Attend ing Provid er: FANTA SHAH Referr ing Provid er: FANTA SHAH Admitt ing Provid er: FANTA SHAH [email or web address] [facility] [address] [facility], [place], [address], 12/22/2024 14:55:22 Result Notes None recorded. Problems Name Problem SNOMED Code Status Onset Date Resolution Date Notes Provider Name and Address Organization Details Recorded Time Sensorineural hearing loss 37388256 Active 2022 CHELITA STODDARDTZ, AUD [address] [facility], [place], [address] , SARAH DINANT - [place] 3 11:12:33 Problem Notes None recorded. Procedures Surgical History Date Name Laterality Status Provider Name and Address Organization Details Recorded Time 5 modified radical neck dissection completed Liz Shelley LPCRUZITO [facility] & [place] 01/09/2025 14:48:42 colonoscopy completed Liz Shelley LPCRUZITO [facility] & [place] 01/09/2025 14:45:18 Imaging Results None recorded. Procedure Notes None recorded. Medical Equipment None Reported. Allergies No known drug allergies Medications Name Sig Start Date Stop Date Status Note LastModified by Organization Details LastModified Time Magic Mouthwash take 1-2tbsps 5-6x daily before meals/med ications 2024 active Not Available Not Available Not Avai lable celecoxib 200 mg capsule 12/14 completed Not Available Not Available Not Available furosemide 40 mg tablet TAKE 1 TO 2 TABLET(S) BY MOUTH EVERY DAY NEEDED FOR fluid retention active Not Available Not Available No t Available acetaminoph en 325 mg tablet 12/14 completed Not Available Not Available Not Available trazodone 50 mg tablet TAKE 1/2 TABLET BY MOUTH EVERY NIGHT AT BEDTIME NEEDED FOR insomnia active Not Available Not Available No t Available hydrocodone 5 mg-acetamin ophen 325 mg tablet TAKE ONE TABLET BY MOUTH EVERY 6 HOURS NEEDED FOR moderate pain MAY CAUSE DROWSINES S active Not Available Not Available No t Available isosorbide mononitrate ER 30 mg tablet,exte nded release 24 hr TAKE ONE TABLET BY MOUTH EVERY DAY active Not Available Not Available No t Available prochlorper azine maleate 10 mg tablet TAKE ONE TABLET BY MOUTH EVERY 6 HOURS NEEDED FOR NAUSEA AND VOMITING active Not Available Not Available No t Available hydrocodone 10 mg-acetamin ophen 325 mg tablet take 1/2 - 1 TABLET BY MOUTH EVERY 6 HOURS NEEDED FOR SEVERE pain MAY CAUSE DROWSINES S 12/14 completed Not Available Not Available Not Available aspirin 81 mg tablet,wen yed release TAKE ONE TABLET BY MOUTH EVERY DAY active Not Available Not Available No t Available levothyroxi ne 25 mcg tablet TAKE ONE TABLET BY MOUTH EVERY DAY 12/14 completed Not Available Not Available Not Available levothyroxi ne 75 mcg tablet TAKE 1/2 TABLET BY MOUTH EVERY DAY active Not Available Not Available No t Available potassium chloride ER 20 mEq tablet,exte nded release(par t/cryst) TAKE ONE TABLET BY MOUTH EVERY DAY FOR supplemen t active Not Available Not Available No t Available doxycycline monohydrate 100 mg capsule TAKE ONE CAPSULE BY MOUTH TWICE DAILY -- FINISH ALL MEDICINE -- 12/14 completed Not Available Not Available Not Available levothyroxi ne 50 mcg tablet TAKE ONE TABLET BY MOUTH EVERY DAY active Not Available Not Available No t Available cephalexin 500 mg capsule 12/14 completed Not Available Not Available Not Available dexamethaso ne 4 mg tablet Take 1 tablet twice a day by oral route for 5 days. 2024 active Not Available Not Available Not Avai lable glimepiride 4 mg tablet TAKE 1/2 TABLET BY MOUTH EVERY DAY FOR diabetes 12/14 completed Not Available Not Available Not Available pravastatin 20 mg tablet TAKE ONE TABLET BY MOUTH EVERY DAY active Not Available Not Available No t Available ondansetron 4 mg disintegrat ing tablet 12/14 completed Not Available Not Available Not Available lidocaine 5 % topical ointment Apply TO tendernes s in AREA of incisiona l scar ON THE LEFT side of THE chest/nec k/arm FOUR TIMES DAILY NEEDED FOR PAIN active Not Available Not Available No t Available lidocaine HCl 4 % topical cream APPLY TOPICALLY TO THE AFFECTED AREA(S) NEEDED DIRECTED active Not Available Not Available No t Available Jardiance 10 mg tablet TAKE ONE TABLET BY MOUTH EVERY DAY 12/14 completed Not Available Not Available Not Available Jardiance 25 mg tablet TAKE ONE TABLET BY MOUTH EVERY DAY active Not Available Not Available No t Available Accu-Chek Guide test strips USE DIRECTED TO test blood sugar TWICE DAILY active Not Available Not Available No t Available Vitals Date Recorded Body height Body mass index (BMI) Body weight Body temperature Heart rate Oxygen saturation Oxygen saturation in Arterial blood by Pulse oximetry Systolic blood pressure Diastolic blood pressure Provider Name and Address Organization Details Last Updated DateTime 157.48 cm 27.1 kg/m2 21729.3 9 g 97.4 [degF] 68 /min 98 % 98 % 127 mm[Hg] 68 mm[Hg] Erin TERRY [facility] & [place] 14:13:07 Date Recorded Body height Oxygen saturation Oxygen saturation in Arterial blood by Pulse oximetry Heart rate Body temperature Systolic blood pressure Diastolic blood pressure Provider Name and Address Organization Details Last Updated DateTime 157.48 cm 94 % 94 % 88 /min 98.8 [degF] 105 mm[Hg] 69 mm[Hg] Liz SMITH [facility] & [place] 5 14:43:24 Social History Question Answer Notes LastModified by [employer] Details LastModified Time Tobacco Smoking Status Never Smoker [facility] [place] 12/14/2024 14:09:31 Do You Have An Advance Directive? Yes [email or web address] Information not available 12/14/2024 Are You Blind Or Do You Have Difficulty Seeing? No [email or web address] Information not available 12/14/2024 What Is Your Level Of Caffeine Consumption? Moderate [email or web address] Information not available 01/09/2025 What Was The Date Of Your Most Recent Tobacco Screening? 01/09/2025 [email or web address] Information not available 01/09/2025 Has Tobacco Cessation Counseling Been Provided? No [email or web address] Information not available 01/09/2025 Sex: Unknown Functional Status Question Answer Note LastModified by [employer] Details LastModified Time Do you use any illicit or recreational drugs? No [email or web address] Information not available 12/14/2024 Do you or have you ever used any other forms of tobacco or nicotine? No Information not available 01/09/2025 What is your level of alcohol consumption? None Information not available 12/14/2024 What is your exercise level? None [email or web address] Information not available 12/14/2024 Mental Status Question Answer Note LastModified by Organization D etails LastModified Time Do you feel stressed (tense, restless, nervous, or anxious, or unable to sleep at night)? [id number] [email or web address] Information not available 12/14/2024 Family History Nothing Reported. Medical History Condition Response Diabetes Y Congestive Heart Failure (CHF) Y Rheumatoid Arthritis Y Ear or Hearing Problems Y Immunizations Vaccine Type Date Status Note Provider Nam e and Address Organization Details Recorded Time Influenza, adjuvanted, trivalent, PF 4 completed Liz Abel null, [place] - [facility] & [place] 01/09/2025 14:43:03 Influenza, adjuvanted, quadrivalent, PF 3 completed Liz Abel null, [place] [facility] [place] [facility] [place] 01/09/2025 14:43:03 Influenza, adjuvanted, quadrivalent, PF 2 completed Liz Abel null, [place] [facility] & [place] 01/09/2025 14:43:03 COVID-19, mRNA, LNP-S, PF, 100 mcg/0.5mL dose or 50 mcg/0.25mL dose 1 completed Liz Abel null, [place] [facility] - [place] 01/09/2025 14:43:03 COVID-19, mRNA, LNP-S, PF, 100 mcg/0.5mL dose or 50 mcg/0.25mL dose 1 completed Liz Abel null, [place] - [facility] & [place] 01/09/2025 14:43:03 Pneumococcal conjugate PCV 13 9 completed Liz Abel null, [place] - [facility] - [place] [facility] [place] 01/09/2025 14:43:03 Influenza, high-dose, trivalent, PF 0 completed Liz Abel null, SAR[place] - [facility] - [place] [facility] [place] 01/09/2025 14:43:03 Influenza, high-dose, trivalent, PF 9 completed Liz Abel null, SARAH - [facility] - [place] [facility] [place] 01/09/2025 14:43:03 Past Encounters Encounter ID Performer Location Encounter Start Date Encounter Closed Date Diagnosis/Indication Diagnosis SNOMED-CT Code Diagnosis ICD10 Code Diagnosis Note [id number] LUZ LARSEN [facility] [place] [address], [place] [address] 07/21/2023 11:11:29 07/21/2023 11:12:17 Sensorineural hearing loss 61497756 H90.5 [id number] LUZ LARSEN [facility] - [address] [facility], [place] [address] 01/05/2024 11:01:09 01/05/2024 11:01:59 Sensorineural hearing loss 06284247 H90.5 [id number] Chad Snowden MD [facility] [address] [facility] [address] [place] [address] 12/14/2024 13:43:12 12/14/2024 13:48:52 Primary squamous cell carcinoma of parotid gland 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 Significan t increase in size in left neck mass with involvemen t of the skin and patient was taken to the operating room. Radical neck dissection of the left neck with flap placement and superficia l partial parotidect michael performed on November 22, 2024. Findings of squamous cell carcinoma involving periparoti d lymph nodes with extensive extranodal extension. Close surgical margins with positive perineural and lymphovasc ular invasion. For of 31 lymph nodes positive for squamous cell carcinoma. 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 Recommenda tion from NCCN guidelines would be for postoperat helga radiation therapy. Recommende d to have radiation only. Patient has met with Radiation Medicine. Additional imaging has been requested. Will follow-up Will follow-up MRI. If any abnormalit ies can reassess use of weekly cisplatin with radiation however without any definitive advancemen t disease would proceed with postop radiation therapy due to high-risk features based on NCCN guidelines . History of malignant neoplasm of rectum 367644542 Z85.048 Patient with prior history of rectal cancer. Treated previously with radiation therapy. [id number] Chad Snowden MD [facility] [address] [place] [address] 01/09/2025 14:35:22 01/09/2025 15:11:08 Primary squamous cell carcinoma of parotid gland 727616065 C07 radical resection of the left neck face in left superficia l partial parotidect michael with left modified radical neck dissection and left supraclavi cular flap reconstruc tion on November 22, 2024. 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 Significan t increase in size in left neck mass with involvemen t of the skin and patient was taken to the operating room. Radical neck dissection of the left neck with flap placement and superficia l partial parotidect michael performed on November 22, 2024. Findings of squamous cell carcinoma involving periparoti d lymph nodes with extensive extranodal extension. Close surgical margins with positive perineural and lymphovasc ular invasion. For of 31 lymph nodes positive for squamous cell carcinoma. 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 Recommenda tion from NCCN guidelines would be for postoperat helga radiation therapy. Recommende d to have radiation only. Patient has met with Radiation Medicine. Additional imaging has been requested. MRI of the face without and with IV contrast on December 19, 2024. Surgical absence of left submandibu lar gland with edema. Enhancemen t at the surgical bed however no definitive mass visualized . Patient returns on January 09, 2025. Discussed upcoming CT simulation for starting of radiation. Will plan to see the patient back at the end completion of radiation therapy. Patient proceeding with radiation only. Will follow-up History of malignant neoplasm of rectum [id number] Z85.048 Patient with prior history of rectal cancer. Treated previously with radiation therapy. Health Concerns Section Related Observation LastModified by Organization Detai ls LastModified Time None Recorded Concern Status LastModified by Organization Details LastModified Time None Recorded Advance Directives Directive Y: Payers Insurance Date Sequence Insurance Name Policy Number Policy Graff Covered Member ID Graff Member ID Guarantor Name 12/06/2024 3 [employer] [place] (MEDICAID REPLACEMENT - HMO) Gage Paulson [id number] Gage Paulson 01/09/2025 3 [employer] (MEDICARE REPLACEMENT/AD VANTAGE - PPO) Gage Paulson [id number] Gage Paulson 03/21/2025 2 [facility] [place] ([place] - [id number] Gage Paulson [id number] Gage Paulson 03/21/2025 1 [employer] (MEDICARE REPLACEMENT/AD VANTAGE - HMO) Gage Paulson [id number] Gage Paulson 12/06/2024 2 [place] [facility] CHO[facility] - FFS/TRADITIONA L Gage Paulson [id number] Gage Paulson 01/13/2025 3 [place]MEDICARE REPLACEMENT HMO) [id number] Gage Paulson [id number] Gage Paulson Notes Date Note Type Note Provider Name and Address Organization Details Recorded Time 07/21/2023 text/html Patient was seen today for a hearing aid service. Cleaned and adjusted hearing aids this date. CHELITA GARRIDO, LUZ [address] , [place], [address], [place] [facility] & [place] 07/21/2023 11:13:01 01/05/2024 text/html Patient was seen today for a hearing aid service. Cleaned and adjusted hearing aids this date. CHELITA GARRIDO, LUZ [address] , [place], [address], [facility] & [place] 01/05/2024 11:02:54 12/14/2024 text/html 78 yo M presents for evaluation of squamous cell carcinoma of the parotid gland. Patient recently seen at [facility] on November 30, 2024. Postop appointment following radical resection of the left neck face in left superficial partial parotidectomy with left modified radical neck dissection and left supraclavicular flap reconstruction on November 22, 2024. 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 Significant increase in size in left neck mass with involvement of the skin and patient was taken to the operating room. Radical neck dissection of the left neck with flap placement and superficial partial parotidectomy performed on November 22, 2024. Findings of squamous cell carcinoma involving periparotid lymph nodes with extensive extranodal extension. Close surgical margins with positive perineural and lymphovascular invasion. For of 31 lymph nodes positive for squamous cell carcinoma. 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 Recommendation from NCCN guidelines would be for postoperative radiation therapy. Recommended to have radiation only. Patient has met with Radiation Medicine. Additional imaging has been requested. Will follow-up Chad Snowden MD [address], [place], [address], [place] - [facility] & [place] 12/14/2024 15:16:30 01/09/2025 text/html 78 yo M returns for evaluation of squamous cell carcinoma of the parotid gland. Patient recently seen at [facility] on November 30, 2024. Postop appointment following radical resection of the left neck face in left superficial partial parotidectomy with left modified radical neck dissection and left supraclavicular flap reconstruction on November 22, 2024. 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 Significant increase in size in left neck mass with involvement of the skin and patient was taken to the operating room. Radical neck dissection of the left neck with flap placement and superficial partial parotidectomy performed on November 22, 2024. Findings of squamous cell carcinoma involving periparotid lymph nodes with extensive extranodal extension. Close surgical margins with positive perineural and lymphovascular invasion. For of 31 lymph nodes positive for squamous cell carcinoma. 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 Recommendation from NCCN guidelines would be for postoperative radiation therapy. Recommended to have radiation only. Patient has met with Radiation Medicine. MRI of the face without and with IV contrast on December 19, 2024. Surgical absence of left submandibular gland with edema. Enhancement at the surgical bed however no definitive mass visualized. Patient returns on January 09, 2025. Discussed upcoming CT simulation for starting of radiation. Will plan to see the patient back at the end completion of radiation therapy. Patient proceeding with radiation only. Will follow-up Chad Snowden MD [address], [place], [address], [place] - [facility] & [place] 01/09/2025 15:24:24
--- OUTSIDE RECORDS SUMMARY | 2025-04-20 10:47 | XMS_ITS | Encounter Summary ---
Author Organization Healthcare Address [address] [place] [address] Care Team Providers Care Film Process Operator Name Role Phone Chip Zamarripa MD Primary Care Provider + [phone] Sweta Abebe RN Unavailable Unavailable Encounter Details Date Type Department Care Team ([facility] st Contact Info) Description 02/28/2025 Telephone [facility] Head[facility] Neck [facility] Respiratory [address] [facility], [address]nd [place] [address] Mynor Aguiar MD [address] [facility] [address] [place] [address] Social History Tobacco Use Types Packs/Day Years [...] drink first t edel in the morning (EYE-SUPERVISOR LOGGING) to steady your nerves or to get rid of a hangover? 0 11/23/2024 CAGE Questionnaire Score 0 025 Sex and Gender Information Value Date Recorded Sex Assigned at Not on file Legal Sex Male 8:36 PM EDT Gender Identity Not on file Sexual Orientation Not on file documented as of this encounter Miscellaneous Notes * Telephone Encounter - Bhavana Reyes - 02/28/2025 9:18 AM EDT Spoke with pt's son to let him know pt's 03/01 appts have been rescheduled to 03/08. Confirmed date/times. documented in this encounter Plan of Treatment Not on file documented as of this encounter Visit Diagnoses Not on filedocumented in this encounter Additional Health Concerns Assessment Noted Time A fall risk assessment has been complete d for the patient 02/23/2025 1:43 PM EDT A Body Mass Index follow-up plan has been documented for the patient 11/24/2024 9:28 AM EST documented as of this encounter Care Teams Film Process Operator Relationship Specialty Start Date End Date Chip Zamarripa MD [address] [place] [address] PCP - General 03/22/21 Sweta Abebe, RN Registered Nurse Hematology and Oncology 02/22/25 documented as of this encounter
--- OUTSIDE RECORDS SUMMARY | 2025-04-20 10:47 | XMS_ITS | Encounter Summary ---
Author Organization [facility] Address [address] [place] [address] Care Team Providers Care Manual Arts Therapy Teacher Name Role Phone Chip Zamarripa MD Primary Care Provider + [phone] Sweta Abebe RN Unavailable Unavailable Encounter Details Date Type Department Care Team (Latest Contact Info) Description 02/23/2025 Travel Social History Tobacco Use Types Packs/Day Years [...] drink first t edel in the morning (EYE-MEDICAL CARE ADMINISTRATOR) to steady your nerves or to get [...] No Risk Indicated 02/23/2025 1:43 PM EDT Hemal Tripathi R * Question Answer Date of Assessment Author 1. Wish to be (Past 1 Month) No 025 1:43 PM EDT Milton Franklinenix R 2. Non-Specific Active Suici tyler Thoughts (Past 1 Month) No 02/23/2025 1:43 PM EDT Rigoberto, Milton enix R 6. Suicidal Behavior (Lifetime) No 5 1:43 PM EDT Gely Franklinx R documented as of this encounter Plan [...] documented as of this encounter Care Teams Manual Arts Therapy Teacher Relationship Specialty Start Date End Date Chip Zamarripa MD [address] [place] [address] PCP - General 03/22/21 Sweta Abebe, RN Registered Nurse Hematology and Oncology 02/22/25 documented as of this encounter
--- OUTSIDE RECORDS SUMMARY | 2025-04-20 10:47 | XMS_ITS | Clinical Summary ---
Author Organization [facility] Address [address] [place] [address] Care Team Providers Care Strategy Consultant Name Role Phone Chip Zamarripa MD Primary Care Provider + [phone] Sweta Abebe RN Unavailable Unavailable Allergies No known active allergies Medications furosemide (Lasix) 40 MG tablet Take 0.5-1 tablets (20-40 mg) by mouth 1 (one) time each day if needed. 12/12/19 21 Active isosorbide mononitrate ER (Imdur) 30 MG 24 hr tablet Take 1 tablet (30 mg) by mouth 1 (one) time each day. 12/12/19 21 Active pravastatin (Pravachol) 20 MG tablet Take 1 tablet (20 mg) by mouth 1 (one) time each day. 12/12/19 21 Active empagliflozin (Jardiance) 25 MG Take 1 tablet (25 mg) by mouth 1 (one) time each day. 08/12/20 24 Active Aspirin Low Dose 81 MG EC tablet Take 1 tablet (81 mg) by mouth 1 (one) time each day. 04/05/20 24 Active levothyroxine (Synthroid, Levoxyl) 50 MCG tablet Take 1 tablet (50 mcg) by mouth 1 (one) time each day before breakfast. Active acetaminophen (Tylenol) 325 MG tablet Take 2 tablets (650 mg) by mouth every 8 (eight) hours. Under [place] law, monthly prescriptions (30 days) can be refilled at 25 days and three-month prescriptions (90 days) at 80 days. Please contact the insurance company with questions if refills are denied. 100 tablet 11/24/19 25 Active ondansetron ODT (Zofran-ODT) 4 MG disintegrating tablet Take 1 tablet (4 mg) by mouth every 6 (six) hours if needed for nausea or vomiting. 20 tablet 11/24/19 25 Active lidocaine (Xylocaine) 5 % ointment Apply TO tenderness in AREA of incisional scar ON THE LEFT side of THE chest/neck/arm FOUR TIMES DAILY NEEDED FOR PAIN 01/17/20 25 Active traZODone (Desyrel) 50 MG tablet TAKE 1/2 TABLET BY MOUTH EVERY NIGHT AT BEDTIME NEEDED FOR insomnia 01/25/20 25 Active HYDROcodone-acetam inophen ([place]) 5-325 MG tablet Take 1 tablet by mouth every 6 hours as needed for moderate pain. 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 06/09/2024 Atherosclerotic heart diseas e of [place] coronary artery without angina pectoris 04/05/2024 Disorder of the skin and subcutaneous tissue, un specified 04/05/2024 Sensorineural hearing loss 07/21/2023 Benign essential hypertension 12/13/2020 CKD (chronic kidney disease) stage 3, GFR 30-59 ml/min 12/13/2020 Diabetes mellitus, type 2 12/12/2020 Microalbuminuria 11/22/2020 Encounters Date Type Department Care Team Description 04/11/2025 Telephone [facility] [address] [facility] [place] [phone] Mynor Aguiar MD 03/17/2025 Telephone [facility] [address] [facility] [place] [address] Mynor Aguiar MD 03/16/2025 Telephone [facility] [address] [phone] Mynor Aguiar MD 02/28/2025 Telephone [facility] [address] [phone] Mynor Aguiar MD 02/23/2025 2:10 PM EDT Office Visit [facility] [address] [phone] Sosa Deshpande MD 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); 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; 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; Neoplasm related pain 02/23/2025 1:45 PM EDT Clinical Support [facility] [address] [phone] 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; 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 02/23/2025 Travel 02/20/2025 Telephone [facility] [address] [phone] Sosa Deshpande MD 02/14/2025 3:00 PM EDT Office Visit [facility] [address] [phone] Dipesh Riley PA 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); 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 02/14/2025 Travel 02/13/2025 Telephone [facility] [address] [phone] Dipesh Riley PA 01/26/2025 Orders Only [facility] [address] [phone] Mynor Aguiar MD 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 0 11/23/2024 CAGE Questionnaire Score 0 025 Sex and Gender Information Value Date Recorded Sex Assigned at Not on file Legal Sex Male 8:36 PM EDT Gender Identity Not on file Sexual Orientation Not on file Last Filed Vital Signs Vital Sign Reading [...] oz) 02/23/2025 1:41 P M EDT Height 180.3 cm (5' 11 ) 02/14/2025 2:55 PM EDT Body Mass Index 19.56 02/14/2025 2:55 PM EDT Plan of Treatment Health Maintenance Due Date Last Done Comments [facility]-Depression Screening 09/15/1946 [facility]-Diabetes: Hemoglobin A1C 09/15/1944 [facility]-Medicare Annual Wellness (AWV) 09/15/1944 [facility]-Infant/Child/Adol SDOH Screenings 09/16/1946 Diabetes: Dental Exam 09/15/1954 [facility]- SDOH Screenings 09/15/1962 [facility]-Adult SDOH Screenings 09/15/1962 [facility]-DTaP,Tdap,and Td Vaccines (1 - Tdap) 09/15/1963 [facility]-Zoster Vaccines (1 of 2) 09/15/1963 [facility]-Pneumococcal Vaccine: 50+ Years (2 of 2 - PPSV23) 09/06/2019 07/12/2019 [facility]-RSV Vaccine: 60+ Years or (1 - 1-dose 75+ series) 09/15/2019 [id number] Vaccine (3 - Moderna risk series) 02/13/2021 01/16/2021, 12/19/2020 [facility]-Influenza Vaccine Completed 08/11/2024 , 07/31/2023, 08/13/2022, Additional history exists HPV Vaccines Aged Out No longer eligi ble based on patient's age to complete this topic [facility]-HIB Vaccines Aged Out No longer e ligible based on patient's age to complete this topic [facility]-Hepatitis A Vaccines Aged Out No longer eligible based on patient's age to complete this topic [facility]-IPV Vaccines Aged Out No longer e ligible based on patient's age to complete this topic [facility]-Rotavirus Vaccines Aged Out No lo nger eligible based on patient's age to complete this topic Procedures Procedure Name Priority Date/Time Associated Diagnosis Comments [facility]AN[facility] TUMOR SEEK HYBRID + IHCS AND OTHER TESTS BY TUMOR TYPE Routine 02/23/2025 2:57 PM EDT 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 + IHCs and Other Tests by Tumor Type (02/23/2025 2:57 PM EDT) Pathologist [facility] Genomic Loss of Heterozygosity - [place] Low 4% 03/07/2025 8:57 PM EDT [facility] Microsatellite Instability - Exome Stable 03/07/2025 8:57 PM EDT [facility] Tumor Mutational Paron - [place] High 24 per Mb 03/07/2025 8:57 PM EDT [facility] CARIS Her2/Teresa Negative 03/07/2025 8:57 PM EDT [facility]IS PD-L1 (SP142) Negative 03/07/2025 8:57 PM EDT [facility] HLA-A - [place] A*02:01,A*32 :01 03/07/2025 8:57 PM EDT [facility] HLA-B - [place] B*40:02,B*44 :02 03/07/2025 8:57 PM EDT [facility] HLA-C - [place] C*02:02,C*05 :01 03/07/2025 8:57 PM EDT [facility] Tissue Non-blood Collection / Unknown 02/23/2025 2:57 PM EDT 02/24/2025 2:57 PM EDT Narrative This result has genomic variants that were not included in this document. us Sosa Deshpande MD LAB MOL DX NO SOURCE Final R esult [facility] [employer] [employer] [address] [place] [address], * (ABNORMAL) Comprehensive Urine Drug Screening, Qualitative Assay, >= 27 Drug Classes (52:01 PM EDT) Acetaminophen Negative Negative 03/14/2025 12:21 PM EDT [facility] Alprazolam Negative Negative 03/14/2025 12:21 PM EDT [facility] Amantadine Negative Negative 03/14/2025 12:21 PM EDT [facility] Amitriptyline Negative Negative 03/14/2025 12:21 PM EDT [facility] Amphetamine Negative Negative 03/14/2025 12:21 PM EDT [facility] Atenolol Negative Negative 03/14/2025 12:21 PM EDT [facility] Benzoylecgonine Negative Negative 12:21 PM EDT [facility] Bisoprolol Negative Negative 03/14/2025 12:21 PM EDT [facility] Bupropion Negative Negative 03/14/2025 12:21 PM EDT [facility] Butalbital Negative Negative 03/14/2025 12:21 PM EDT [facility] Carbamazepine Negative Negative 03/14/2025 12:21 PM EDT [facility] Carisoprodol Negative Negative 03/14/2025 12:21 PM EDT [facility] Chlorpheniramine Negative Negative 03/14/20 12:21 PM EDT [facility] Citalopram Negative Negative 03/14/2025 12:21 PM EDT [facility] Clindamycin Negative Negative 03/14/2025 12:21 PM EDT [facility] Clonidine Negative Negative 03/14/2025 12:21 PM EDT [facility] Clopidogrel / Ticlopidine Negative Negative 03/14/2025 12:21 PM EDT [facility] Cocaethylene Negative Negative 03/14/2025 12:21 PM EDT [facility] Cocaine Negative Negative 03/14/2025 12:21 PM EDT [facility] Codeine Negative Negative 03/14/2025 12:21 PM EDT [facility] Cyclobenzaprine Negative Negative 12:21 PM EDT [facility] Desvenlafaxine Negative Negative 03/14/2025 12:21 PM EDT [facility] Dextromethorphan Negative Negative 03/14/20 12:21 PM EDT [facility] Diazepam Negative Negative 03/14/2025 12:21 PM EDT [facility] Diltiazem Negative Negative 03/14/2025 12:21 PM EDT [facility] Diphenhydramine Negative Negative 12:21 PM EDT [facility] Doxepine Negative Negative 03/14/2025 12:21 PM EDT [facility] Doxylamine Negative Negative 03/14/2025 12:21 PM EDT [facility] EDDP-Methadone metabolite Negative Negative 03/14/2025 12:21 PM EDT [facility] Fentanyl Negative Negative 03/14/2025 12:21 PM EDT [facility] Fluconazole Negative Negative 03/14/2025 12:21 PM EDT [facility] Fluoxetine Negative Negative 03/14/2025 12:21 PM EDT [facility] Guaifenesin Negative Negative 03/14/2025 12:21 PM EDT [facility] Haloperidol Negative Negative 03/14/2025 12:21 PM EDT [facility] Heroin/6-NAWAF Negative Negative 03/14/2025 12:21 PM EDT [facility] Hydrocodone Negative Negative 03/14/2025 12:21 PM EDT [facility] Hydroxyzine / Cetirizine metabolite Negative Negative 03/14/2025 12:21 PM EDT [facility] Ibuprofen Negative Negative 03/14/2025 12:21 PM EDT [facility] Imipramine Negative Negative 03/14/2025 12:21 PM EDT [facility] Ketamine Negative Negative 03/14/2025 12:21 PM EDT [facility] Labetolol Negative Negative 03/14/2025 12:21 PM EDT [facility] Lamotrigine Negative Negative 03/14/2025 12:21 PM EDT [facility] Levetiracetam Negative Negative 03/14/2025 12:21 PM EDT [facility] Lidocaine Negative Negative 03/14/2025 12:21 PM EDT [facility] MDA Negative Negative 03/14/2025 12:21 PM EDT [facility] MDMA Negative Negative 03/14/2025 12:21 PM EDT [facility] Memantine Negative Negative 03/14/2025 12:21 PM EDT [facility] Meperidine Negative Negative 03/14/2025 12:21 PM EDT [facility] Meprobamate Negative Negative 03/14/2025 12:21 PM EDT [facility] Metaxalone Negative Negative 03/14/2025 12:21 PM EDT [facility] Methamphetamine Negative Negative 12:21 PM EDT [facility] Methocarbamol Negative Negative 03/14/2025 12:21 PM EDT [facility] Methylecgonine Negative Negative 03/14/2025 12:21 PM EDT [facility] Metoclopramide Negative Negative 03/14/2025 12:21 PM EDT [facility] Metoprolol Negative Negative 03/14/2025 12:21 PM EDT [facility] Metronidazole Negative Negative 03/14/2025 12:21 PM EDT [facility] Midazolam Negative Negative 03/14/2025 12:21 PM EDT [facility] Midazolam Metabolite Negative Negative 03/14/2025 12:21 PM EDT [facility] Mirtazapine Negative Negative 03/14/2025 12:21 PM EDT [facility] Misc Test Result Negative Negative 03/14/20 12:21 PM EDT [facility] Naproxen Negative Negative 03/14/2025 12:21 PM EDT [facility] Nefazodone Negative Negative 03/14/2025 12:21 PM EDT [facility] Norfentanyl Negative Negative 03/14/2025 12:21 PM EDT [facility] Nortriptyline Negative Negative 03/14/2025 12:21 PM EDT [facility] Ordanstron Negative Negative 03/14/2025 12:21 PM EDT [facility] Oxcarbazepine Negative Negative 03/14/2025 12:21 PM EDT [facility] Oxycodone Negative Negative 03/14/2025 12:21 PM EDT [facility] Paroxethine Negative Negative 03/14/2025 12:21 PM EDT [facility] Phenobarbital Negative Negative 03/14/2025 12:21 PM EDT [facility] Phentermine Negative Negative 03/14/2025 12:21 PM EDT [facility] Phenytoin Negative Negative 03/14/2025 12:21 PM EDT [facility] Primidone Negative Negative 03/14/2025 12:21 PM EDT [facility] Promethazine Negative Negative 03/14/2025 12:21 PM EDT [facility] Propofol Negative Negative 03/14/2025 12:21 PM EDT [facility] Propranolol Negative Negative 03/14/2025 12:21 PM EDT [facility] Quetiapine Negative Negative 03/14/2025 12:21 PM EDT [facility] Quinine Negative Negative 03/14/2025 12:21 PM EDT [facility] Rantidine Negative Negative 03/14/2025 12:21 PM EDT [facility] Sertraline Negative Negative 03/14/2025 12:21 PM EDT [facility] Spironolactone Negative Negative 03/14/2025 12:21 PM EDT [facility] Tizanidine Negative Negative 03/14/2025 12:21 PM EDT [facility] Topiramate Negative Negative 03/14/2025 12:21 PM EDT [facility] Tramadol Negative Negative 03/14/2025 12:21 PM EDT [facility] Trazadone/ Trazadone metabolite Positive(A) Negative 03/14/2025 12:21 PM EDT [facility] Trimethoprim Negative Negative 03/14/2025 12:21 PM EDT [facility] Valproic Acid Negative Negative 03/14/2025 12:21 PM EDT [facility] Venlafaxine Negative Negative 03/14/2025 12:21 PM EDT [facility] Verapamil Negative Negative 03/14/2025 12:21 PM EDT [facility] Zolpidem Negative Negative 03/14/2025 12:21 PM EDT [facility] Xylazine Negative Negative 03/14/2025 12:21 PM EDT [facility] Urine Urine specimen obtained by clean catch procedure / Unknown Non-blood Collection / Unknown 02/23/2025 2:01 PM EDT 02/23/2025 2:29 PM EDT Narrative [facility] - 03/14/2025 12:21 PM EDT Test performed by: [employer] [address] [place] [id number] us Sosa Deshpande MD LAB URINE ORDERABLES Final R esult [facility] [address] [place] [address] * (ABNORMAL) CBC and Differential (02/23/2025 1:57 PM EDT) WBC Count 7.67 3.70 - 10.30 10*3/uL LAB HEMATOLOGY METHOD 02/23/2025 2:39 PM EDT [facility] RBC Count 4.80 4.60 - 6.10 10*6/uL LAB HEMATOLOGY METHOD 02/23/2025 2:39 PM EDT [facility] HGB 14.1 13.7 - 17.5 g/dL LAB HEMATOLOGY METHOD 02/23/2025 2:39 PM EDT [facility] HCT 42.6 40.0 - 51.0 % LAB HEMATOLOGY METHOD 02/23/2025 2:39 PM EDT [facility] Platelet Count 287 155 - 369 10*3/uL LAB HEMATOLOGY METHOD 02/23/2025 2:39 PM EDT [facility] MCV 89 79 - 98 fL LAB HEMATOLOGY METHOD 02/23/2025 2:39 PM EDT [facility] MCH 29.4 26.0 - 32.0 pg LAB HEMATOLOGY METHOD 02/23/2025 2:39 PM EDT [facility] MCHC 33.1 30.7 - 35.5 g/dL LAB HEMATOLOGY METHOD 02/23/2025 2:39 PM EDT [facility] RDW 13.5 11.5 - 14.5 % LAB HEMATOLOGY METHOD 02/23/2025 2:39 PM EDT [facility] MPV 9.1 8.8 - 12.5 fL LAB HEMATOLOGY METHOD 02/23/2025 2:39 PM EDT [facility] nRBC 0.0 <=0.0 per 100 WBCs LAB HEMATOLOGY METHOD 02/23/2025 2:39 PM EDT [facility] Differential Type Automated LAB HEMATOLOGY METHOD 02/23/2025 2:39 PM EDT [facility] Neutrophils % 68 % LAB HEMATOLOGY METHOD 02/23/2025 2:39 PM EDT [facility] Lymphocytes % 17 % LAB HEMATOLOGY METHOD 02/23/2025 2:39 PM EDT [facility] Monocytes % 10 % LAB HEMATOLOGY METHOD 02/23/2025 2:39 PM EDT [facility] Eosinophils % 3 % LAB HEMATOLOGY METHOD 02/23/2025 2:39 PM EDT [facility] Basophils % 1 % LAB HEMATOLOGY METHOD 02/23/2025 2:39 PM EDT [facility] Immature Granulocytes % 1 % LAB HEMATOLOGY METHOD 02/23/2025 2:39 PM EDT [facility] Neutrophils Absolute 5.15 1.60 - 6.10 10*3/uL LAB HEMATOLOGY METHOD 02/23/2025 2:39 PM EDT [facility] Lymphocytes Absolute 1.32 1.20 - 3.90 10*3/uL LAB HEMATOLOGY METHOD 02/23/2025 2:39 PM EDT [facility] Monocytes Absolute 0.79 0.30 - 0.90 10*3/uL LAB HEMATOLOGY METHOD 02/23/2025 2:39 PM EDT [facility] Eosinophils Absolute 0.21 0.00 - 0.50 10*3/uL LAB HEMATOLOGY METHOD 02/23/2025 2:39 PM EDT [facility] Basophils Absolute 0.10 0.00 - 0.10 10*3/uL LAB HEMATOLOGY METHOD 02/23/2025 2:39 PM EDT [facility] Immature Granulocytes Absolute 0.10(H) 0.00 - 0.06 10*3/uL LAB HEMATOLOGY METHOD 02/23/2025 2:39 PM EDT [facility] Blood Venous blood specimen / Unknown Venipuncture / Unknown 02/23/2025 1:57 PM EDT 02/23/2025 2:29 PM EDT Narrative [facility] - 02/23/2025 2:39 PM EDT Therapeutic decision making should be based on absolute values, rather than percentages. Sosa Deshpande MD LAB BLOOD ORDERABLES Final R esult Performing Organization Address City/[facility] Co de Phone Number [facility] [address] [place] [address] * Thyroid Stimulating Hormone, Plasma (02/23/2025 1:57 PM EDT) Thyroid Stimulating Hormone, Plasma 3.88 0.40 - 4.20 uIU/mL 02/23/2025 3:06 PM EDT [facility] Blood Venous blood specimen / Unknown Venipuncture / Unknown 02/23/2025 1:57 PM EDT 02/23/2025 2:22 PM EDT Sosa Deshpande MD LAB BLOOD ORDERABLES Final R esult Performing Organization Address City/[facility]/ZIP Co de Phone Number [facility] [address] [place] [address] * (ABNORMAL) Comprehensive Metabolic Panel, Plasma (02/23/2025 1:57 PM EDT) Glucose, Plasma 293(H) 74 - 99 mg/dL 02/23/2025 3:06 PM EDT [facility] BUN, Plasma 21 8 - 23 mg/dL 02/23/2025 3:06 PM EDT [facility] Creatinine, Plasma 1.17 0.70 - 1.20 mg/dL 02/23/2025 3:06 PM EDT [facility] BUN/Creatinine Ratio 18 02/23/2025 3:06 PM EDT [facility] Sodium, Plasma 135(L) 136 - 145 mmol/L 02/23/2025 3:06 PM EDT [facility] Potassium, Plasma 3.5(L) 3.6 - 4.9 mmol/L 02/23/2025 3:06 PM EDT [facility] Chloride, Plasma 96(L) 97 - 107 mmol/L 02/23/2025 3:06 PM EDT [facility] CO2, Plasma 27 22 - 29 mmol/L 02/23/2025 3:06 PM EDT [facility] Anion Gap 12 6 - 16 mmol/L 02/23/2025 3:06 PM EDT [facility] Total Calcium, Plasma 9.5 8.9 - 10.2 mg/dL 02/23/2025 3:06 PM EDT [facility] Total Protein 6.4 6.3 - 7.9 g/dL 02/23/2025 3:06 PM EDT [facility] Albumin, Plasma 3.9 3.5 - 5.2 g/dL 02/23/2025 3:06 PM EDT [facility] AST, Plasma 19 10 - 50 U/L 02/23/2025 3:06 PM EDT [facility] Comment:Hemolyzed, result ma y be falsely increased. ALT, Plasma 14 10 - 50 U/L 02/23/2025 3:06 PM EDT [facility] Alkaline Phosphatase, Plasma 93 40 - 115 U/L 02/23/2025 3:06 PM EDT [facility] Total Bilirubin, Plasma 0.4 0.2 - 1.1 mg/dL 02/23/2025 3:06 PM EDT [facility] eGFRcr 63.0 mL/min/1.7 3m*2 02/23/2025 3:06 PM EDT [facility] Comment:Reported eGFRcr in m L/min/1.73m2 is based the CKD-EPI 2020 equation that does not use a race coefficient. Blood Venous blood specimen / Unknown Venipuncture / Unknown 02/23/2025 1:57 PM EDT 02/23/2025 2:22 PM EDT us Sosa Deshpande MD LAB BLOOD ORDERABLES Final R esult [facility] [address] [place] [address] * Fine needle aspiration (02/14/2025 3:27 PM EDT) Case Report Cytology Case: [id number] Authorizing Provider: Dipesh Riley PA Collected: 02/14/20251526 Ordering Location: [facility] Received: 02/14/2025 1527 Respiratory Pathologist: Zina Burks MD Specimen: Neck, Left, Fine Needle Aspiration, LEFT NECK SUPERFICAL FINE NEEDLE ASPIRATION 02/15/2025 11:10 AM EDT [facility] Final Diagnosis A. SUBCUTANEOUS NODULES, LEFT NECK, SUPERFICIAL FINE NEEDLE ASPIRATION: - POSITIVE FOR MALIGNANCY, RECURRENT / METASTATIC SQUAMOUS CELL CARCINOMA 02/15/2025 11:10 AM EDT [facility] at 1110 EDT Immediate Evaluation FNA performed and/or attended during critical time by staff pathologist: Dr. Burks A time out procedure was performed by our service for patient and site verification. Patient tolerated 2 needle passes well without injected anesthesia or known complications. Immediate evaluation performed by: Dr. Burks / Evaluation episode #1-2: Metastatic carcinoma 02/15/2025 11:10 AM EDT [facility] [facility] Clinical History scca neck 02/15/2025 11:10 AM EDT [facility] Procedure Type Superficial 11:10 AM EDT [facility] Size/Descripti on of Lesion Left Neck Mass, subcutaneous nodules adjacent to flap 02/15/2025 11:10 AM EDT [facility] Cancer History Yes 02/15/2025 11:10 AM EDT [facility] Gross Description A. LEFT NECK SUPERFICAL FINE NEEDLE ASPIRATION 5 ml's tinted needle rinse fluid held. Received 2 diff quick slides and 2 pap slides 02/15/2025 11:10 AM EDT [facility] Note: A resident was involved in the service. I attest I examined the relevant preparations for the specimens and confirmed the diagnosis or interpretation. 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 [ICD-10-CM] 02/15/2025 11:10 AM EDT [facility] Fine Needle Aspirate Neck structure / Unknown Non-blood Collection / Unknown 02/14/2025 3:27 PM EDT 02/14/2025 3:27 PM EDT us Dipesh [facility] CYTOLOGY ORDERABLES Final R esult [facility] [address] [place] [address] from Last 3 Months Insurance [facility] MEDICAID [facility] MEDICARE Advance Directives Documents on File Type Date Recorded Patient Public Address Technician Expl 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 Yes Care Teams Strategy Consultant Relationship Specialty Start Date End Date Chip Zamarripa MD [address] [facility] [place] [address] PCP - General 03/22/21 Sweta Abebe, RN Registered Nurse Hematology and Oncology 02/22/25
--- OUTSIDE RECORDS SUMMARY | 2025-04-20 10:47 | XMS_ITS | Encounter Summary ---
Author Organization Healthcare Address 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 Wish to be (Past 1 Month) No 025 1:43 PM EDT Rigoberto [place] R 2. Non-Specific Active Suici tyler Thoughts (Past 1 Month) No 02/23/2025 1:43 PM EDT Rigoberto, [place] enix R 6. Suicidal Behavior (Lifetime) No 1:43 PM EDT Rigoberto, [place] R documented as of this encounter Miscellaneous Notes * Telephone Encounter - Larissa Fan - 02/20/2025 1:25 PM EDT Patient Phone Message Reason for Call: Attempted to call pt with upcoming appt on 02/[address] Deshpande. No answer so I left a VM with appt details. Best contact number and optimal time of day to reach caller: Note: Please do not reply to this message. Follow-up communication and further actions as a result of this message need to be communicated with the patient directly, if the patient is not active onMyChart. If the patient is active on MyChart, they will receive notification of the communication/outcome via MyChart. documented in this encounter Plan of Treatment Not on file documented as of this encounter Visit Diagnoses Not on filedocumented in this encounter Additional Health Concerns Assessment Noted Time A fall risk assessment has been complete d for the patient 02/14/2025 2:55 PM EDT A Body Mass Index follow-up plan has been documented for the patient 11/24/2024 9:28 AM EST documented as of this encounter Care Teams Solar Energy Engineer Relationship Specialty Start Date End Date Chip Zamarripa MD [address] [place] [address] PCP - General 03/22/21 Sweta Abebe RN Registered Nurse Hematology and Oncology 02/22/25 documented as of this encounter
--- OUTSIDE RECORDS SUMMARY | 2025-04-20 10:47 | XMS_ITS | Encounter Summary ---
Author Organization Healthcare Address [address] [place] [address] Care Team Providers Care Cigar Head Puncher Name Role Phone Chip Zamarripa MD Primary Care Provider + [phone] Sweta Abebe RN Unavailable Unavailable Encounter Details Date Type Department Care Team ([facility] st Contact Info) Description 03/16/2025 Telephone Pav CC Head, Neck & Respiratory [address] [facility], [address]nd [place] [address] Mynor Aguiar MD [address] [facility] [address]nd [place] [address] Social History Tobacco Use Types Packs/Day Years [...] drink first t edel in the morning (EYE-ORACLE TECHNICAL ARCHITECT) to steady your nerves or to get rid of a hangover? 0 11/23/2024 CAGE Questionnaire Score 0 025 Sex and Gender Information Value Date Recorded Sex Assigned at Not on file Legal Sex Male 8:36 PM EDT Gender Identity Not on file Sexual Orientation Not on file documented as of this encounter Miscellaneous Notes * Telephone Encounter - Bhavana Reyes - 03/16/2025 12:30 PM EDT Called pt to see if he needed to r/s canceled appts or if he just planned to follow up with Dr. Aguiar on 03/30. LVM asking him to call the clinic to let us know. documented in this encounter Plan of Treatment [...] documented as of this encounter Care Teams Cigar Head Puncher Relationship Specialty Start Date End Date Chip Zamarripa MD [address] [place] [address] PCP - General 03/22/21 Sweta Abebe RN Registered Nurse Hematology and Oncology 02/22/25 documented as of this encounter
--- OUTSIDE RECORDS SUMMARY | 2025-04-20 10:47 | XMS_ITS | Encounter Summary ---
Author Organization Healthcare Address [address] [place] [address] Care Team Providers Care Solution Manager Name Role Phone Chip Zamarripa MD Primary Care Provider + [phone] Sweta Abebe RN Unavailable Unavailable Encounter Details Date Type Department Care Team ([facility] st Contact Info) Description 03/17/2025 Telephone Pav CC Head, Neck & Respiratory [address] [facility], [address]nd [place] [address] Mynor Aguiar MD [address] [facility] [address] [place] [address] Social History Tobacco Use Types Packs/Day Years [...] drink first t edel in the morning (EYE-GRINDER OPERATOR EXTERNAL TOOL) to steady your nerves or to get rid of a hangover? 0 11/23/2024 CAGE Questionnaire Score 0 025 Sex and Gender Information Value Date Recorded Sex Assigned at Not on file Legal Sex Male 8:36 PM EDT Gender Identity Not on file Sexual Orientation Not on file documented as of this encounter Miscellaneous Notes * Telephone Encounter - Sweta Maynard RN - 03/21/2025 1:50 PM EDT Discussed with provider. Okay to cancel MRI, but would prefer to see patient sometime in the next month, so he doesn't get lost to this clinic. Called patient's son, Jonnie and discussed with him. Re-scheduled pt to date and time of Ray's choosing. He stated he would call back tomorrow if that doesn'twork for them. He thanked me and we ended the call. * Telephone Encounter - Bhavana Reyes - 03/17/2025 2:31 PM EDT Patient Phone Message Reason for Call: Pt's son returned my call about rescheduling canceled scans and follow up. Pt's son stated that patient was doing radiation at [facility] but they stopped treatments since they were not working. Pt is now being seen at [facility] for immunotherapy. His second treatment is on 03/30, so the pt will not be able to follow up as scheduled. He has at CT scans at [facility] recently. Pt's son would like to know when will be best to follow up since they definitely cannot make 03/30. Does he still need the MRI? Best contact number and optimal time of day to reach caller: Jonnie [phone] Note: Please do not reply to this message. Follow-up communication and further actions as a result of this message need to be communicated with the patient directly, if the patient is not active onMyChart. If the patient is active on MyChart, they will receive notification of the communication/outcome via MadeClose. documented in this encounter Plan of Treatment [...] documented as of this encounter Care Teams Solution Manager Relationship Specialty Start Date End Date Chip Zamarripa MD [address] [place] [address] PCP - General 03/22/21 Sweta Abebe RN Registered Nurse Hematology and Oncology 02/22/25 documented as of this encounter
--- OUTSIDE RECORDS SUMMARY | 2025-04-20 10:47 | XMS_ITS | Encounter Summary ---
Author Organization Healthcare Address [address] [place] [address] Care Team Providers Care Quality Improvement Coordinator (Rn) Name Role Phone Chip Zamarripa MD Primary Care Provider + [phone] Sweta Abebe RN Unavailable Unavailable Encounter Details Date Type Department Care Team ([facility] st Contact Info) Description 04/11/2025 Telephone Pav CC Head, Neck & Respiratory [address] [facility], [address]nd [place] [address] Mynor Aguiar MD 800 [facility] [address]nd [place] [address] Social History Tobacco Use Types Packs/Day Years [...] drink first t edel in the morning (EYE-[place] ATTORNEY) to steady your nerves or to get rid of a hangover? 0 11/23/2024 CAGE Questionnaire Score 0 025 Sex and Gender Information Value Date Recorded Sex Assigned at Not on file Legal Sex Male 8:36 PM EDT Gender Identity Not on file Sexual Orientation Not on file documented as of this encounter Miscellaneous Notes * Telephone Encounter - EricBhavana Jerrod - 04/11/2025 1:01 PM EDT Called pt to see if he needed to r/s canceled appt. Spoke with pt's son who stated pt did not feel as though he needed to continue to follow up since he has been referred to hospice. Let the family know to call us should they need anything in the future. documented in this encounter Plan of Treatment [...] documented as of this encounter Care Teams Quality Improvement Coordinator (Rn) Relationship Specialty Start Date End Date Chip Zamarripa MD [address] [place] [address] PCP - General 03/22/21 Sweta Abebe, RN Registered Nurse Hematology and Oncology 02/22/25 documented as of this encounter
--- OUTSIDE RECORDS SUMMARY | 2025-04-20 10:47 | XMS_ITS | Referral Summary ---
Author Organization [employer] Address [address] [place] [address] Care Team Providers Care Dryland Farmer Name Role Phone Unavailable Primary Care Provider Unavailabl e Social History Tobacco Use Types Packs/Day Years Used Date Smoking Tobacco: Never Assessed Sex and Gender Information Value Date Recorded Sex Assigned at Not on file Legal Sex Male 1:14 PM CDT Gender Identity Not on file Sexual Orientation Not on file Plan of Treatment Not on file
[2025-04-20 11:03] LABS: Albumin Level 3.7 g/dl (3.5-5.0); Chloride 104 mmol/L (98-107); Potassium 3.5 mmoL/L (3.5-5.1); Sodium 136 mmol/L (136-145)
[2025-04-20 11:05] LABS: Blood Urea Nitrogen 31 mg/dl (9-20); Creatinine Clearance Estimated 51 mL/min (50-200); Estimated Glomerular Filt Rate 72 ml/min (>60); GFR (African American) 87 ML/MIN (>60)
[2025-04-20 11:06] LABS: Alanine Aminotransferase 11 U/L (12-78); Albumin/Globulin Ratio 1.5 (1.1-1.8); Alkaline Phosphatase 95 U/L (38-126); Anion Gap 7.5 mEq/L (5-15); Aspartate Amino Transferase 19 U/L (17-59); Bilirubin,Total 0.5 mg/dl (0.2-1.3); Calcium 10.5 mg/dl (8.4-10.2); Carbon Dioxide 28 mmol/L (22.0-30.0); Globulin 2.5 g/dL (1.3-3.2); Glucose 219 mg/dl (74-100); Total Protein,Serum 6.2 g/dl (6.3-8.2)
[2025-04-20 11:37] LABS: Thyroid Stimulating Hormone 4.78 uIU/mL (0.465-4.68)
[2025-04-20] MEDS: CEMIPLIMAB-RWLC 350 MG in 0.9 % SODIUM CHLORIDE 100 ML 214 MG IV (12:10)
[2025-04-20] MEDS: 0.9 % SODIUM CHLORIDE 50 ML 25 ML IV (12:10)
[2025-04-20 12:17] VITALS: BP 131/55; PULSE 69; RESP 18; TEMP 36.6; O2SAT 99
[2025-04-20 12:50] VITALS: BP 140/62; PULSE 71
[2025-04-20] MEDS: SODIUM CHLORIDE 0.9% 10ML FLUSH SYRINGE 10 ML IV (15:13)
== END 2025-04-20 13:05 | disposition home or self-care (01) ==
LOC: INF 10:37
PROVIDERS: PCP Family Medicine; Visit Provider Internal Medicine Medical Oncology
DX: Z51.11 Encounter for antineoplastic chemotherapy (principal); C44.92 Squamous cell carcinoma of skin, unspecified
CPT/HCPCS: 80053; 84443; 85025; 96413; J9119

== ENCOUNTER 2025-05-11 11:02 | Outpatient (CLI) | payer MEDICARE, OTHER, SELFPAY ==
--- OUTSIDE RECORDS SUMMARY | 2025-05-11 11:12 | XMS_ITS | Data Portability ---
Author Organization [place] - [facility] & [place] [facility] Address [address] [place] [address] Care Team Providers Care Product Strategy Director Name Role Phone CATRINAGURDEEP MATTHEWS Primary Care Provider [phone] Assessment No assessment recorded. Plan of Treatment [...] LastModifiedTime 12/20/1912/19/2024 MRI face w/w/o contr ast [facility] [address] [place] [address] Phone: Fax: Name: GAGE PAULSON Exam Date: : 944 Age 78 years Gender : M Access ion: [id number] Physic shania: PABLO JEWELL Facili ty: [facility] Fac[place] ty HSV: Outpat ient Exam: MRI FACE W/W/O CONTRA ST MR FACE WITHOU T THEN WITH IV CONTRA ST, 025 2:53 PM BED SETTER INDICA TION: post op resect ion Additi [...] [facility] Legall y authen ticate d by HAKAN WILLOUGHBY 12-19 15:53: 00 CC'ed Logic: Orderi ng Provid er: FANTA SHAH Attend ing Provid er: FANTA SHAH Referr ing Provid er: FANTA SHAH Admitt ing Provid er: FANTA SHAH [email or web address] [facility] [address] [facility], [place], [address], 12/22/2024 14:55:22 Result Notes None recorded. Problems Name Problem SNOMED Code Status Onset Date Resolution Date Notes Provider Name and Address Organization Details Recorded Time Sensorineural hearing loss 65369771 Active 2022 CHELITA GARRIDO, AUD [address] [facility], [place], [address] , [facility] & [place] 3 11:12:33 Problem Notes Documentation Provider Name and Address Organization Details Recorded Time Commissioning Editor Consult Note : SW met with pt and pt son. SW went over distress screener and explain SW role in radiation oncology and provided SW contact information. Pt did not discuss specific concerns about insurance but reported intent to reach out if needs arose. Pt is planning on riding to treatment with his brother or other family members. The pt son discussed this may be an issue at times. SW reported that transportation is something that SW has assisted with and it is possible the pt has transportation benefits with their insurance. Pt caregiver reported that the pt would not ride the van . When asked if the pt would allow the SW to schedule rides if needed the pt reported he would allow this. SW discussed to try and let her know in advance if possible for scheduling. Pt was anxious and SW inquired about pt supports who discussed that his brother and scales inspector was a support and at this time he was not in need but would reach out if he thought of anything. Cyrus feng, SARAH - [facility] & [place] 12/08/2024 13:42:06 Procedures Surgical History Date Name Laterality Status Provider Name and Address Organization Details Recorded Time 5 modified radical neck dissection completed Liz SMITH [facility] & [place] 01/09/2025 14:48:42 colonoscopy completed Liz TERRY [facility] & [place] 01/09/2025 14:45:18 Imaging Results None recorded. Procedure [...] in Arterial blood by Pulse oximetry Systolic And Diastolic Provider Name and Address Organization Details Last Updated DateTime 157.48 cm 27.1 kg/m2 30220.3 9 g 97.4 [degF] 68 /min 98 % 98 % 127/68 mm[Hg] Erin Cleary [facility] & [place] 14:13:07 Date Recorded Body height Oxygen saturation Oxygen saturation in Arterial blood by Pulse oximetry Heart rate Body temperature Systolic And Diastolic Provider Name and Address Organization Details Last Updated DateTime 5 157.48 cm 94 % 94 % 88 /min 98.8 [degF] 105/69 mm[Hg] Liz Hugginser [facility] & [place] 14:43:24 Social History Question Answer Notes LastModified by Organizat ion Details LastModified Time Tobacco Smoking Status Never Smoker Erin Cleary [facility] [place], SARAH [facility] & [place] 12/14/2024 14:09:31 Do You Have An Advance Directive? Yes [email or web address] Information not available 12/14/2024 Are You Blind Or Do You Have Difficulty Seeing? No [email or web address] Information not available 12/14/2024 What Is Your Level Of Caffeine Consumption? Moderate [email or web address] Information not available 01/09/2025 What Was The Date Of Your Most Recent Tobacco Screening? 01/09/2025 Information not available 01/09/2025 Has Tobacco Cessation Counseling Been Provided? No [email or web address] Information not available 01/09/2025 Sex: Unknown Functional Status Question Answer Note LastModified by Organizat ion Details LastModified Time Do you use any illicit or recreational drugs? No [email or web address] Information not available 12/14/2024 Do you or have you ever used any other forms of tobacco or nicotine? No [email or web address] Information not available 01/09/2025 What is your level of alcohol consumption? None [email or web address] Information not available 12/14/2024 What is your exercise level? None [email or web address] Information not available 12/14/2024 Mental Status Question Answer Note LastModified by Organization D etails LastModified Time Do you feel stressed (tense, restless, nervous, or anxious, or unable to sleep at night)? [id number] [email or web address] Information not available 12/14/2024 Family History Nothing Reported. Medical History Condition Response Diabetes Y Ear or Hearing Problems Y Congestive Heart Failure (CHF) Y Rheumatoid Arthritis Y Immunizations Vaccine Type Date Status Note Provider Nam e and Address Organization Details Recorded Time Influenza, adjuvanted, trivalent, PF 4 completed Liz Abel null, [place] - [facility] [place] 01/09/2025 14:43:03 Influenza, adjuvanted, quadrivalent, PF 3 completed Liz Abel null, [place] - [facility] [place] 01/09/2025 14:43:03 Influenza, adjuvanted, quadrivalent, PF 2 completed Liz feng, [place] - [facility] [place] 01/09/2025 14:43:03 COVID-19, mRNA, LNP-S, PF, 100 mcg/0.5mL dose or 50 mcg/0.25mL dose 1 completed Liz feng, [place] - [facility] [place] 01/09/2025 14:43:03 COVID-19, mRNA, LNP-S, PF, 100 mcg/0.5mL dose or 50 mcg/0.25mL dose 1 completed Liz feng, [place] - [facility] [place] 01/09/2025 14:43:03 Pneumococcal conjugate PCV 13 9 completed Liz feng, SARAH - [facility] - [place] & [place] 01/09/2025 14:43:03 Influenza, high-dose, trivalent, PF 0 completed Liz feng, SARAH - [facility] - [place] & [place] 01/09/2025 14:43:03 Influenza, high-dose, trivalent, PF 9 completed Liz feng, SARAH - [facility] - [place] & [place] 01/09/2025 14:43:03 Past Encounters Encounter ID Performer Location Encounter Start Date Encounter Closed Date Diagnosis/Indication Diagnosis SNOMED-CT Code Diagnosis ICD10 Code Diagnosis Note [id number] LUZ LARSEN [facility] [place] [address] [address] [facility] [place] [id number] 07/21/2023 11:11:29 07/21/2023 11:12:17 Sensorineural hearing loss 12782677 H90.5 [id number] LUZ LARSEN [facility] [place] [id number] [facility] [place] [id number] 01/05/2024 11:01:09 01/05/2024 11:01:59 Sensorineural hearing loss 17834075 H90.5 [id number] Chad Snowden MD [facility] [address] [place] [address] 12/14/2024 13:43:12 12/14/2024 13:48:52 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 History of malignant neoplasm of rectum 078248688 Z85.048 Patient with prior history of rectal cancer. Treated previously with radiation therapy. [id number] Chad Snowden MD [facility] [address] [place] [address] 01/09/2025 14:35:22 01/09/2025 15:11:08 Primary squamous cell carcinoma of parotid gland 444760622 C07 radical resection of the left neck [...] follow-up History of malignant neoplasm of rectum 093669165 Z85.048 Patient with prior history of rectal cancer. Treated previously with radiation therapy. Health Concerns Section Related Observation LastModified by Organization Detai ls LastModified Time None Recorded Concern Status LastModified by Organization Details LastModified Time None Recorded Advance Directives Directive Y: Payers Insurance Date Sequence Insurance Name Policy Number Policy Graff Covered Member ID Graff Member ID Guarantor Name 12/06/2024 3 [employer] [place] (MEDICAID REPLACEMENT - HMO) Gage Paulson [id number] Gage Paulson 01/09/2025 3 [employer] (MEDICARE REPLACEMENT/AD VANTAGE - PPO) Gage Paulson [id number] Gage Paulson 03/21/2025 2 [facility] (MEDICAID REPLAC[facility] - HMO) [facility] Gage Paulson [id number] Gage Paulson 03/21/2025 1 [employer] (MEDICARE REPLACEMENT/AD VANTAGE - HMO) Gage Paulson [id number] Gage Paulson 12/06/2024 2 MEDICAID-PSYCHIATRIC HEALTH CHOICES - FFS/TRADITIONA L Gage Paulson [id number] Gage Paulson 01/13/2025 3 [place] BCBS OF [facility] MEDIBLUE PLUS (MEDICARE REPLACEMENT HMO) [id number] Gage Evy Paulson [id number] Gage Paulson Notes Date Note Type Note Provider Name and Address Organization Details Recorded Time 07/21/2023 text/html Patient was seen today for a hearing aid service. Cleaned and adjusted hearing aids this date. CHELITA GARRIDO, LUZ [address] , [place], [address], [facility] - [place] & [place] 07/21/2023 11:13:01 01/05/2024 text/html Patient was seen today for a hearing aid service. Cleaned and adjusted hearing aids this date. LUZ LARSEN [address], [place], [address], [place] - 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 Patient recently seen at [facility] on [...] requested. Will follow-up Chad Snowden MD [address], [place], [address], [place] - 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 Patient recently seen at [facility] on [...] radiation only. Will follow-up Chad Snowden MD [address], [place], [address], [place] - [facility] - [place] [facility] [place] 01/09/2025 15:24:24
--- OUTSIDE RECORDS SUMMARY | 2025-05-11 11:12 | XMS_ITS | Clinical Summary ---
Author Organization [facility] Address [address] [place] [address] Care Team Providers Care Concession Manager Name Role Phone Chip Zamarripa MD Primary Care Provider + [phone] Sweta Abebe RN Unavailable Unavailable Allergies No [...] by mouth every 8 (eight) hours. Under [place] law, monthly prescriptions (30 days) can be [...] FOR insomnia 01/25/20 25 Active HYDROcodone-acetam inophen ([place]) 5-325 MG tablet Take 1 tablet by [...] edelmira 06/09/2024 Atherosclerotic heart diseas e of [place] coronary artery without angina pectoris 04/05/2024 Disorder of the skin and subcutaneous tissue, un specified 04/05/2024 Sensorineural hearing loss 07/21/2023 Benign essential hypertension 12/13/2020 CKD (chronic kidney disease) stage 3, GFR 30-59 ml/min 12/13/2020 Diabetes mellitus, type 2 12/12/2020 Microalbuminuria 11/22/2020 Encounters Date Type Department Care Team Description 04/11/2025 Telephone [facility] [address] [facility] [place] [phone] Mynor Aguiar MD 03/17/2025 Telephone [facility] [address] [facility] [place] [address] Mynor Aguiar MD 03/16/2025 Telephone [facility] [address] [phone] Mynor Aguiar MD 02/28/2025 Telephone [facility] [address] [address] Mynor Aguiar MD 02/23/2025 2:10 PM EDT Office Visit [facility] [address] [address] Sosa Deshpande MD 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); 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; 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; Neoplasm related pain 02/23/2025 1:45 PM EDT Clinical Support [facility] [address] [phone] 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; 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 02/23/2025 Travel 02/20/2025 Telephone [facility] [address] [phone] Sosa Deshpande MD 02/14/2025 3:00 PM EDT Office Visit [facility] [address] [address] Dipesh Riley PA 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); 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 02/14/2025 Travel 02/13/2025 Telephone [facility] [address] [address] Dipesh Riley PA from Last 3 Months Family History Medical [...] drink first t edel in the morning (EYE-COMPUTER AIDED DESIGN DRAFTER) to steady your nerves or to get [...] Health Maintenance Due Date Last Done Comments [facility]-Depression Screening 09/15/1944 [facility]-Diabetes: Hemoglobin A1C 09/15/1944 [facility]-Medicare Annual Wellness (AWV) 09/15/1944 [facility]-Infant/Child/Adol SDOH Screenings 09/16/1944 Diabetes: Dental Exam 09/15/1954 [facility]- SDOH Screenings 09/15/1962 [facility]-Adult SDOH Screenings 09/15/1962 [facility]-DTaP,Tdap,and Td Vaccines (1 - Tdap) 09/15/1963 [facility]-Zoster Vaccines (1 of 2) 09/15/1963 [facility]-Pneumococcal Vaccine: 50+ Years (2 of 2 - PPSV23) 09/06/2019 07/12/2019 [facility]-RSV Vaccine: 60+ Years or (1 - 1-dose 75+ series) 09/15/2019 [id number] Vaccine (3 - Moderna risk series) 02/13/2021 01/16/2021, 12/19/2020 [facility]-Influenza Vaccine (#1) 07/10/202508/11, 07/31/2023, 08/13/2022, Additional history exists HPV Vaccines [...] from Last 3 Months Results * (ABNORMAL) [place] [facility]??? + IHCs and Other Tests by Tumor Type (02/23/2025 2:57 PM EDT) Pathologist [facility] IZAJIMENA Genomic Loss of Heterozygosity - [place] Low 4% 03/07/2025 8:57 PM EDT [employer] IZAAtlas Scientific Microsatellite Instability - [place] Stable 03/07/2025 8:57 PM EDT [facility] Tumor Mutational [place] - [place] High 24 per Mb 03/07/2025 8:57 PM EDT [employer] SANDY Her2/Teresa Negative 03/07/2025 8:57 PM EDT [facility] PD-L1 (SP142) Negative 03/07/2025 8:57 PM EDT [facility] HLA-A - [place] A*02:01,A*32 :01 03/07/2025 8:57 PM EDT [facility] HLA-B - [place] B*40:02,B*44 :02 03/07/2025 8:57 PM EDT [facility] HLA-C - [place] C*02:02,C*05 :01 03/07/2025 8:57 PM EDT [employer] Tissue Non-blood Collection / Unknown 02/23/2025 2:57 PM EDT 02/24/2025 2:57 PM EDT Narrative This result has genomic variants that were not included in this document. us Sosa Deshpande MD LAB MOL DX NO SOURCE Final R esult SANDY [employer] [address] [address], [place] [phone] * (ABNORMAL) Comprehensive Urine Drug Screening, Qualitative Assay, >= 27 Drug Classes (52:01 PM EDT) Acetaminophen Negative Negative 03/14/2025 12:21 PM EDT [facility] Alprazolam Negative Negative 03/14/2025 12:21 PM EDT [facility] Amantadine Negative Negative 03/14/2025 12:21 PM EDT [facility] Amitriptyline Negative Negative 03/14/2025 12:21 PM EDT [facility] Amphetamine Negative Negative 03/14/2025 12:21 PM EDT [facility] Atenolol Negative Negative 03/14/2025 12:21 PM EDT [facility] Benzoylecgonine Negative Negative 12:21 PM EDT [facility] Bisoprolol Negative Negative 03/14/2025 12:21 PM EDT [facility] Bupropion Negative Negative 03/14/2025 12:21 PM EDT [facility] Butalbital Negative Negative 03/14/2025 12:21 PM EDT [facility] Carbamazepine Negative Negative 03/14/2025 12:21 PM EDT [facility] Carisoprodol Negative Negative 03/14/2025 12:21 PM EDT [facility] Chlorpheniramine Negative Negative 03/14/20 12:21 PM EDT [facility] Citalopram Negative Negative 03/14/2025 12:21 PM EDT [facility] Clindamycin Negative Negative 03/14/2025 12:21 PM EDT [facility] Clonidine Negative Negative 03/14/2025 12:21 PM EDT [facility] Clopidogrel / Ticlopidine Negative Negative 03/14/2025 12:21 PM EDT [facility] Cocaethylene Negative Negative 03/14/2025 12:21 PM EDT [facility] Cocaine Negative Negative 03/14/2025 12:21 PM EDT [facility] Codeine Negative Negative 03/14/2025 12:21 PM EDT [facility] Cyclobenzaprine Negative Negative 12:21 PM EDT [facility] Desvenlafaxine Negative Negative 03/14/2025 12:21 PM EDT [facility] Dextromethorphan Negative Negative 03/14/20 12:21 PM EDT [facility] Diazepam Negative Negative 03/14/2025 12:21 PM EDT [facility] Diltiazem Negative Negative 03/14/2025 12:21 PM EDT [facility] Diphenhydramine Negative Negative 12:21 PM EDT [facility] Doxepine Negative Negative 03/14/2025 12:21 PM EDT [facility] Doxylamine Negative Negative 03/14/2025 12:21 PM EDT [facility] EDDP-Methadone metabolite Negative Negative 03/14/2025 12:21 PM EDT [facility] Fentanyl Negative Negative 03/14/2025 12:21 PM EDT [facility] Fluconazole Negative Negative 03/14/2025 12:21 PM EDT [facility] Fluoxetine Negative Negative 03/14/2025 12:21 PM EDT [facility] Guaifenesin Negative Negative 03/14/2025 12:21 PM EDT [facility] Haloperidol Negative Negative 03/14/2025 12:21 PM EDT [facility] Heroin/6-NAWAF Negative Negative 03/14/2025 12:21 PM EDT [facility] Hydrocodone Negative Negative 03/14/2025 12:21 PM EDT [facility] Hydroxyzine / Cetirizine metabolite Negative Negative 03/14/2025 12:21 PM EDT [facility] Ibuprofen Negative Negative 03/14/2025 12:21 PM EDT [facility] Imipramine Negative Negative 03/14/2025 12:21 PM EDT [facility] Ketamine Negative Negative 03/14/2025 12:21 PM EDT [facility] Labetolol Negative Negative 03/14/2025 12:21 PM EDT [facility] Lamotrigine Negative Negative 03/14/2025 12:21 PM EDT [facility] Levetiracetam Negative Negative 03/14/2025 12:21 PM EDT [facility] Lidocaine Negative Negative 03/14/2025 12:21 PM EDT [facility] MDA Negative Negative 03/14/2025 12:21 PM EDT [facility] MDMA Negative Negative 03/14/2025 12:21 PM EDT [facility] Memantine Negative Negative 03/14/2025 12:21 PM EDT [facility] Meperidine Negative Negative 03/14/2025 12:21 PM EDT [facility] Meprobamate Negative Negative 03/14/2025 12:21 PM EDT [facility] Metaxalone Negative Negative 03/14/2025 12:21 PM EDT [facility] Methamphetamine Negative Negative 12:21 PM EDT [facility] Methocarbamol Negative Negative 03/14/2025 12:21 PM EDT [facility] Methylecgonine Negative Negative 03/14/2025 12:21 PM EDT [facility] Metoclopramide Negative Negative 03/14/2025 12:21 PM EDT [facility] Metoprolol Negative Negative 03/14/2025 12:21 PM EDT [facility] Metronidazole Negative Negative 03/14/2025 12:21 PM EDT [facility] Midazolam Negative Negative 03/14/2025 12:21 PM EDT [facility] Midazolam Metabolite Negative Negative 03/14/2025 12:21 PM EDT [facility] Mirtazapine Negative Negative 03/14/2025 12:21 PM EDT [facility] Misc Test Result Negative Negative 03/14/20 12:21 PM EDT [facility] Naproxen Negative Negative 03/14/2025 12:21 PM EDT [facility] Nefazodone Negative Negative 03/14/2025 12:21 PM EDT [facility] Norfentanyl Negative Negative 03/14/2025 12:21 PM EDT [facility] Nortriptyline Negative Negative 03/14/2025 12:21 PM EDT [facility] Ordanstron Negative Negative 03/14/2025 12:21 PM EDT [facility] Oxcarbazepine Negative Negative 03/14/2025 12:21 PM EDT [facility] Oxycodone Negative Negative 03/14/2025 12:21 PM EDT [facility] Paroxethine Negative Negative 03/14/2025 12:21 PM EDT [facility] Phenobarbital Negative Negative 03/14/2025 12:21 PM EDT [facility] Phentermine Negative Negative 03/14/2025 12:21 PM EDT [facility] Phenytoin Negative Negative 03/14/2025 12:21 PM EDT [facility] Primidone Negative Negative 03/14/2025 12:21 PM EDT [facility] Promethazine Negative Negative 03/14/2025 12:21 PM EDT [facility] Propofol Negative Negative 03/14/2025 12:21 PM EDT [facility] Propranolol Negative Negative 03/14/2025 12:21 PM EDT [facility] Quetiapine Negative Negative 03/14/2025 12:21 PM EDT [facility] Quinine Negative Negative 03/14/2025 12:21 PM EDT [facility] Rantidine Negative Negative 03/14/2025 12:21 PM EDT [facility] Sertraline Negative Negative 03/14/2025 12:21 PM EDT [facility] Spironolactone Negative Negative 03/14/2025 12:21 PM EDT [facility] Tizanidine Negative Negative 03/14/2025 12:21 PM EDT [facility] Topiramate Negative Negative 03/14/2025 12:21 PM EDT [facility] Tramadol Negative Negative 03/14/2025 12:21 PM EDT [facility] Trazadone/ Trazadone metabolite Positive(A) Negative 03/14/2025 12:21 PM EDT [facility] Trimethoprim Negative Negative 03/14/2025 12:21 PM EDT [facility] Valproic Acid Negative Negative 03/14/2025 12:21 PM EDT [facility] Venlafaxine Negative Negative 03/14/2025 12:21 PM EDT [facility] Verapamil Negative Negative 03/14/2025 12:21 PM EDT [facility] Zolpidem Negative Negative 03/14/2025 12:21 PM EDT [facility] Xylazine Negative Negative 03/14/2025 12:21 PM EDT [facility] Urine Urine specimen obtained by clean catch procedure / Unknown Non-blood Collection / Unknown 02/23/2025 2:01 PM EDT 02/23/2025 2:29 PM EDT Narrative [facility] - 03/14/2025 12:21 PM EDT Test performed by: [employer] [address] [place] [id number] us Sosa Deshpande MD LAB URINE ORDERABLES Final R esult [facility] [address] [place] [address] * (ABNORMAL) CBC and Differential (02/23/2025 1:57 PM EDT) WBC Count 7.67 3.70 - 10.30 10*3/uL LAB HEMATOLOGY METHOD 02/23/2025 2:39 PM EDT [facility] RBC Count 4.80 4.60 - 6.10 10*6/uL LAB HEMATOLOGY METHOD 02/23/2025 2:39 PM EDT [facility] HGB 14.1 13.7 - 17.5 g/dL LAB HEMATOLOGY METHOD 02/23/2025 2:39 PM EDT [facility] HCT 42.6 40.0 - 51.0 % LAB HEMATOLOGY METHOD 02/23/2025 2:39 PM EDT [facility] Platelet Count 287 155 - 369 10*3/uL LAB HEMATOLOGY METHOD 02/23/2025 2:39 PM EDT [facility] MCV 89 79 - 98 fL LAB HEMATOLOGY METHOD 02/23/2025 2:39 PM EDT [facility] MCH 29.4 26.0 - 32.0 pg LAB HEMATOLOGY METHOD 02/23/2025 2:39 PM EDT [facility] MCHC 33.1 30.7 - 35.5 g/dL LAB HEMATOLOGY METHOD 02/23/2025 2:39 PM EDT [facility] RDW 13.5 11.5 - 14.5 % LAB HEMATOLOGY METHOD 02/23/2025 2:39 PM EDT [facility] MPV 9.1 8.8 - 12.5 fL LAB HEMATOLOGY METHOD 02/23/2025 2:39 PM EDT [facility] nRBC 0.0 <=0.0 per 100 WBCs LAB HEMATOLOGY METHOD 02/23/2025 2:39 PM EDT [facility] Differential Type Automated LAB HEMATOLOGY METHOD 02/23/2025 2:39 PM EDT [facility] Neutrophils % 68 % LAB HEMATOLOGY METHOD 02/23/2025 2:39 PM EDT [facility] Lymphocytes % 17 % LAB HEMATOLOGY METHOD 02/23/2025 2:39 PM EDT [facility] Monocytes % 10 % LAB HEMATOLOGY METHOD 02/23/2025 2:39 PM EDT [facility] Eosinophils % 3 % LAB HEMATOLOGY METHOD 02/23/2025 2:39 PM EDT [facility] Basophils % 1 % LAB HEMATOLOGY METHOD 02/23/2025 2:39 PM EDT [facility] Immature Granulocytes % 1 % LAB HEMATOLOGY METHOD 02/23/2025 2:39 PM EDT [facility] Neutrophils Absolute 5.15 1.60 - 6.10 10*3/uL LAB HEMATOLOGY METHOD 02/23/2025 2:39 PM EDT [facility] Lymphocytes Absolute 1.32 1.20 - 3.90 10*3/uL LAB HEMATOLOGY METHOD 02/23/2025 2:39 PM EDT [facility] Monocytes Absolute 0.79 0.30 - 0.90 10*3/uL LAB HEMATOLOGY METHOD 02/23/2025 2:39 PM EDT [facility] Eosinophils Absolute 0.21 0.00 - 0.50 10*3/uL LAB HEMATOLOGY METHOD 02/23/2025 2:39 PM EDT [facility] Basophils Absolute 0.10 0.00 - 0.10 10*3/uL LAB HEMATOLOGY METHOD 02/23/2025 2:39 PM EDT [facility] Immature Granulocytes Absolute 0.10(H) 0.00 - 0.06 10*3/uL LAB HEMATOLOGY METHOD 02/23/2025 2:39 PM EDT [facility] Blood Venous blood specimen / Unknown Venipuncture / Unknown 02/23/2025 1:57 PM EDT 02/23/2025 2:29 PM EDT [facility] - 02/23/2025 2:39 PM EDT Therapeutic decision making should be based on absolute values, rather than percentages. Sosa Deshpande MD LAB BLOOD ORDERABLES Final R esult Performing Organization Address [facility] Co de Phone Number [facility] [address] [place] [address] * Thyroid Stimulating Hormone, Plasma (02/23/2025 1:57 PM EDT) Thyroid Stimulating Hormone, Plasma 3.88 0.40 - 4.20 uIU/mL 02/23/2025 3:06 PM EDT [facility] Blood Venous blood specimen / Unknown Venipuncture / Unknown 02/23/2025 1:57 PM EDT 02/23/2025 2:22 PM EDT Sosa Deshpande MD LAB BLOOD ORDERABLES Final R esult Performing Organization Address [facility] Co de Phone Number [facility] [address] [place] [address] * (ABNORMAL) Comprehensive Metabolic Panel, Plasma (02/23/2025 1:57 PM EDT) Glucose, Plasma 293(H) 74 - 99 mg/dL 02/23/2025 3:06 PM EDT [facility] BUN, Plasma 21 8 - 23 mg/dL 02/23/2025 3:06 PM EDT [facility] Creatinine, Plasma 1.17 0.70 - 1.20 mg/dL 02/23/2025 3:06 PM EDT [facility] BUN/Creatinine Ratio 18 02/23/2025 3:06 PM EDT [facility] Sodium, Plasma 135(L) 136 - 145 mmol/L 02/23/2025 3:06 PM EDT [facility] Potassium, Plasma 3.5(L) 3.6 - 4.9 mmol/L 02/23/2025 3:06 PM EDT [facility] Chloride, Plasma 96(L) 97 - 107 mmol/L 02/23/2025 3:06 PM EDT [facility] CO2, Plasma 27 22 - 29 mmol/L 02/23/2025 3:06 PM EDT [facility] Anion Gap 12 6 - 16 mmol/L 02/23/2025 3:06 PM EDT [facility] Total Calcium, Plasma 9.5 8.9 - 10.2 mg/dL 02/23/2025 3:06 PM EDT [facility] Total Protein 6.4 6.3 - 7.9 g/dL 02/23/2025 3:06 PM EDT [facility] Albumin, Plasma 3.9 3.5 - 5.2 g/dL 02/23/2025 3:06 PM EDT [facility] AST, Plasma 19 10 - 50 U/L 02/23/2025 3:06 PM EDT [facility] Comment:Hemolyzed, result ma y be falsely increased. ALT, Plasma 14 10 - 50 U/L 02/23/2025 3:06 PM EDT [facility] Alkaline Phosphatase, Plasma 93 40 - 115 U/L 02/23/2025 3:06 PM EDT [facility] Total Bilirubin, Plasma 0.4 0.2 - 1.1 mg/dL 02/23/2025 3:06 PM EDT [facility] eGFRcr 63.0 mL/min/1.7 3m*2 02/23/2025 3:06 PM EDT [facility] Comment:Reported eGFRcr in m L/min/1.73m2 is based the CKD-EPI 2020 equation that does not use a race coefficient. Blood Venous blood specimen / Unknown Venipuncture / Unknown 02/23/2025 1:57 PM EDT 02/23/2025 2:22 PM EDT us Sosa Deshpande MD LAB BLOOD ORDERABLES Final R esult [facility] [address] [place] [address] * Fine needle aspiration (02/14/2025 3:27 PM EDT) Case Report Cytology Case: [id number] Authorizing Provider: Dipesh Riley PA Collected: 02/14/2025 1527 Ordering Location: [facility] Head, Neck & Received: 02/14/2025 1527 Respiratory Pathologist: Zina Burks MD Specimen: Neck, Left, Fine Needle Aspiration, LEFT NECK SUPERFICAL FINE NEEDLE ASPIRATION 02/15/2025 11:10 AM EDT [facility] Final Diagnosis A. SUBCUTANEOUS NODULES, LEFT NECK, SUPERFICIAL FINE NEEDLE ASPIRATION: - POSITIVE FOR MALIGNANCY, RECURRENT / METASTATIC SQUAMOUS CELL CARCINOMA 02/15/2025 11:10 AM EDT [facility] at 1110 EDT Immediate Evaluation FNA performed and/or attended during critical time by staff pathologist: Dr. Burks A time out procedure was performed by our service for patient and site verification. Patient tolerated 2 needle passes well without injected anesthesia or known complications. Immediate evaluation performed by: Dr. Burks / Evaluation episode #1-2: Metastatic carcinoma 02/15/2025 11:10 AM EDT [facility] Clinical History scca neck 02/15/2025 11:10 AM EDT [facility] Procedure Type Superficial 11:10 AM EDT [facility] Size/Descripti on of Lesion Left Neck Mass, subcutaneous nodules adjacent to flap 02/15/2025 11:10 AM EDT [facility] Cancer History Yes 02/15/2025 11:10 AM EDT [facility] Gross Description A. LEFT NECK SUPERFICAL FINE NEEDLE ASPIRATION 5 ml's tinted needle rinse fluid held. Received 2 diff quick slides and 2 pap slides 02/15/2025 11:10 AM EDT [facility] Note: A resident was involved in the service. I attest I examined the relevant preparations for the specimens and confirmed the diagnosis or interpretation. 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 [ICD-10-CM] 02/15/2025 11:10 AM EDT [facility] Fine Needle Aspirate Neck structure / Unknown Non-blood Collection / Unknown 02/14/2025 3:27 PM EDT 02/14/2025 3:27 PM EDT us Dipesh [place] LAB CYTOLOGY ORDERABLES Final R esult [facility] [address] [place] [address] from Last 3 Months Insurance [facility] MEDICAID [facility] MEDICARE Advance Directives Documents on File Type Date Recorded Patient Cell Biology Scientist Expl 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 Yes Care Teams Concession Manager Relationship Specialty Start Date End Date Chip Zamarripa MD [address] [place] [address] [place] [address] PCP - General 03/22/21 Sweta Abebe, RN Registered Nurse Hematology and Oncology 02/22/25
--- OUTSIDE RECORDS SUMMARY | 2025-05-11 11:12 | XMS_ITS | Clinical Summary ---
Author Organization [employer] ([place], [place], [place], [place]) Address [address] [place] [address] Care Team Providers Care Commercial Loan Officer Name Role Phone Unavailable Primary Care [...] 2 - PPSV23) 07/12/2020 07/12/2019 COVID-19 VACCINE (3 - season) 07/10/202408/2021, 12/19/2020 Falls Risk Screening 11/09/2024 Influenza Vaccine (#1) 2025 07/31/2023, 2021
--- OUTSIDE RECORDS SUMMARY | 2025-05-11 11:12 | XMS_ITS | Encounter Summary ---
Author Organization Healthcare Address [address] [place] [address] Care Team Providers Care Kiln Burner Name Role Phone Chip Zamarripa MD Primary Care Provider + [phone] Sweta Abebe RN Unavailable Unavailable Encounter Details Date Type Department Care Team ([facility] st Contact Info) Description 03/17/2025 Telephone [facility] Neck [facility] Respiratory [address] [facility] [place] [address] Mynor Aguiar MD [address] [facility] [address] [place] [address] Social History Tobacco Use Types Packs/Day Years [...] drink first t edel in the morning (EYE-ETHANOL OPERATIONS MANAGER) to steady your nerves or to get [...] stated that patient was doing radiation at [facility] but they stopped treatments since they were not working. Pt is now being seen at [facility] for immunotherapy. His second treatment is on 03/30, so the pt will not be able to follow up as scheduled. He has at CT scans at [facility] recently. Pt's son would like to know when will be best to follow up since they definitely cannot make 03/30. Does he still need the MRI? Best contact number and optimal time of day to reach caller: Jonnie [phone] Note: Please do not reply to this message. Follow-up communication and further actions as a result of this message need to be communicated with the patient directly, if the patient is not active onMyChart. If the patient is active on MyChart, they will receive notification of the communication/outcome via [employer]. documented in this encounter Plan of Treatment [...] documented as of this encounter Care Teams Kiln Burner Relationship Specialty Start Date End Date Chip Zamarripa MD [address] [place] [address] PCP - General 03/22/21 Sweta Abebe RN Registered Nurse Hematology and Oncology 02/22/25 documented as of this encounter
--- OUTSIDE RECORDS SUMMARY | 2025-05-11 11:12 | XMS_ITS | Encounter Summary ---
Author Organization Healthcare Address [address] [place] [id number] Care Team Providers Care Dev Ops Engineer Name Role Phone Chip Zamarripa MD Primary Care Provider + [phone] Sweta Abebe RN Unavailable Unavailable Encounter Details Date Type Department Care Team ([facility] Contact Info) Description 02/20/2025 Telephone Pav CC Head, Neck & Respiratory [address] [facility], 2nd [place] [address] Sosa Deshpande MD 800 [facility] [address] [place] [address] Social History Tobacco Use Types Packs/Day Years [...] drink first t edel in the morning (EYE-REHAB LIAISON) to steady your nerves or to get [...] Indicated 02/23/2025 1:43 PM EDT Brashanti r [place] R * Question Answer Date of Assessment Author 1. Wish to be (Past 1 Month) No 025 1:43 PM EDT Rigoberto [place] R 2. Non-Specific Active Suici tyler Thoughts (Past 1 Month) No 02/23/2025 1:43 PM EDT Rigoberto, [place] enix R 6. Suicidal Behavior (Lifetime) No 1:43 PM EDT Rigoberto, [place] R documented as of this encounter Miscellaneous [...] documented as of this encounter Care Teams Dev Ops Engineer Relationship Specialty Start Date End Date Chip Zamarripa MD [address] [place] [address] PCP - General 03/22/21 Sweta Abebe RN Registered Nurse Hematology and Oncology 02/22/25 documented as of this encounter
--- OUTSIDE RECORDS SUMMARY | 2025-05-11 11:12 | XMS_ITS | Encounter Summary ---
Author Organization Healthcare Address [address] [place] [address] Care Team Providers Care Director Of Placement Name Role Phone Chip Zamarripa MD Primary Care Provider + [phone] Sweta Abebe RN Unavailable Unavailable Encounter Details Date Type Department Care Team ([facility] st Contact Info) Description 03/16/2025 Telephone Pav CC Head, Neck & Respiratory 800 [facility], 2nd [place] [address] Mynor Aguiar MD 800 [facility] 2nd [place] [address] Social History Tobacco Use Types Packs/Day Years [...] drink first t edel in the morning (EYE-DENTAL SALES REPRESENTATIVE) to steady your nerves or to [...] documented as of this encounter Care Teams Director Of Placement Relationship Specialty Start Date End Date Chip Zamarripa MD [address] [place] [address] PCP - General 03/22/21 Sweta Abebe RN Registered Nurse Hematology and Oncology 02/22/25 documented as of this encounter
--- OUTSIDE RECORDS SUMMARY | 2025-05-11 11:12 | XMS_ITS | Encounter Summary ---
Author Organization Healthcare Address [address] [place] [address] Care Team Providers Care Manifold Builder Name Role Phone Chip Zamarripa MD Primary Care Provider + [phone] Sweta Abebe RN Unavailable Unavailable Encounter Details Date Type Department Care Team ([facility] st Contact Info) Description 04/11/2025 Telephone Pav CC Head, Neck & Respiratory 800 [facility], 2nd [place] [address] Mynor Aguiar MD 800 [facility] 2nd [place] [address] Social History Tobacco Use Types Packs/Day Years [...] drink first t edel in the morning (EYE-COMMISSIONED SECURITY OFFICER) to steady your nerves or to get [...] documented as of this encounter Care Teams Manifold Builder Relationship Specialty Start Date End Date Chip Zamarripa MD [address] [place] [address] PCP - General 03/22/21 Sweta Abebe, RN Registered Nurse Hematology and Oncology 02/22/25 documented as of this encounter
--- OUTSIDE RECORDS SUMMARY | 2025-05-11 11:12 | XMS_ITS | Referral Summary ---
Author Organization [employer] ([place], [place], [place] Address [address] [place] [address] Care Team Providers Care Precision Aircraft Structure Assembler Name Role Phone Unavailable Primary Care Provider [...]
[2025-05-11 11:19] LABS: Hematocrit 40.2 % (42.0-52.0); Hemoglobin 13.5 g/dL (14.1-18.0); Immature Granulocytes % 1.6 %; Mean Corpuscular HGB Conc 33.6 g/dL (31.8-35.4); Mean Corpuscular Hemoglobin 29.3 pg (27.0-31.2); Mean Corpuscular Volume 87.2 fl (80-94); Nucleated Red Blood Cells % 0 %; Platelet Count 298 K/mm3 (142-424); Red Blood Count 4.61 M/mm3 (4.60-6.20); Red Cell Distribution Width-SD 42.8 fL; White Blood Count 8.3 K/mm3 (4.8-10.8)
[2025-05-11 11:35] LABS: Albumin Level 4.0 g/dl (3.5-5.0); Chloride 95 mmol/L (98-107); Sodium 135 mmol/L (136-145)
[2025-05-11 11:36] LABS: Potassium 3.4 mmoL/L (3.5-5.1)
[2025-05-11 11:38] LABS: Alanine Aminotransferase 14 U/L (12-78); Anion Gap 15.4 mEq/L (5-15); Aspartate Amino Transferase 22 U/L (17-59); Blood Urea Nitrogen 23 mg/dl (9-20); Carbon Dioxide 28 mmol/L (22.0-30.0); Creatinine,Serum 1.20 mg/dl (0.66-1.25); Estimated Glomerular Filt Rate 58 ml/min (>60); GFR (African American) 70 ML/MIN (>60)
[2025-05-11 11:39] LABS: Albumin/Globulin Ratio 1.5 (1.1-1.8); Alkaline Phosphatase 111 U/L (38-126); Bilirubin,Total 0.7 mg/dl (0.2-1.3); Calcium 8.6 mg/dl (8.4-10.2); Globulin 2.6 g/dL (1.3-3.2); Total Protein,Serum 6.6 g/dl (6.3-8.2)
[2025-05-11 11:51] LABS: Glucose 422 mg/dl (74-100)
[2025-05-11] MEDS: CEMIPLIMAB-RWLC 350 MG in 0.9 % SODIUM CHLORIDE 100 ML 214 MG IV (12:43)
[2025-05-11 12:50] VITALS: BP 88/58; PULSE 76; RESP 18; O2SAT 98
[2025-05-11 13:30] VITALS: BP 86/58; PULSE 71; RESP 18; O2SAT 98
== END 2025-05-11 13:30 | disposition home or self-care (01) ==
LOC: INF 11:03
PROVIDERS: PCP Family Medicine; Visit Provider Internal Medicine Medical Oncology
DX: Z51.11 Encounter for antineoplastic chemotherapy (principal); C44.92 Squamous cell carcinoma of skin, unspecified
CPT/HCPCS: 80053; 85025; 96413; J9119

== ENCOUNTER 2025-06-01 10:35 | Outpatient (CLI) | payer MEDICARE, OTHER, SELFPAY ==
--- OUTSIDE RECORDS SUMMARY | 2025-06-01 10:42 | XMS_ITS | Data Portability ---
Author Organization [place] - [facility] & [place] [facility] Address [address] [place] [address] Care Team Providers Care Salon Designer Name Role Phone CATRINAGURDEEP MATTHEWS Primary Care Provider Assessment No assessment recorded. 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 Legall y authen ticate d by HAKAN WILLOUGHBY 12-19 15:53: 00 CC'ed Logic: Orderi ng Provid er: FANTA SHAH Attend ing Provid er: FANTA SHAH Referr ing Provid er: FANTA SHAH Admitt ing Provid er: FANTA SHAH [email or web address] [facility] [address] [facility], [place], [address], 12/22/2024 14:55:22 Result Notes None recorded. Problems Name Problem SNOMED Code Status Onset Date Resolution Date Notes Provider Name and Address Organization Details Recorded Time Sensorineural hearing loss 45724462 Active 2022 CHELITA GARRIDO, AUD [address] 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 Cyrus feng, SARAH - [facility] & [place] 12/08/2024 13:42:06 Procedures Surgical History Date Name Laterality Status Provider Name and Address Organization Details Recorded Time 5 modified radical neck dissection completed Liz SMITH [facility] & [place] 01/09/2025 14:48:42 colonoscopy completed Liz TERRY [facility] & [place] 01/09/2025 14:45:18 Imaging Results None recorded. Procedure [...] Last Updated DateTime 157.48 cm 27.1 kg/m2 36847.3 9 g 97.4 [degF] 68 /min 98 % 98 % 127/68 mm[Hg] Erin Cleary [facility] & [place] 14:13:07 Date Recorded Body height Oxygen saturation Oxygen saturation in Arterial blood by Pulse oximetry Heart rate Body temperature Systolic And Diastolic Provider Name and Address Organization Details Last Updated DateTime 5 157.48 cm 94 % 94 % 88 /min 98.8 [degF] 105/69 mm[Hg] Liz Hugginser [facility] & [place] 14:43:24 Social History Question Answer Notes LastModified by Organizat ion Details LastModified Time Tobacco Smoking Status Never Smoker Erin Cleary [facility], SARAH [facility] & [place] 12/14/2024 14:09:31 Do You Have An Advance Directive? Yes [email or web address] Information not available 12/14/2024 Are You Blind Or Do You Have Difficulty Seeing? No [email or web address] Information not available 12/14/2024 What Is Your Level Of Caffeine Consumption? Moderate Information not available 01/09/2025 What Was The Date Of Your Most Recent Tobacco Screening? 01/09/2025 [email or web address] Information not available 01/09/2025 Has Tobacco Cessation Counseling Been Provided? No [email or web address] Information not available 01/09/2025 Sex: Unknown Functional Status Question Answer Note LastModified by Organizat ion Details LastModified Time Do you use any illicit or recreational drugs? No [email or web address] Information not available 12/14/2024 Do you or have you ever used any other forms of tobacco or nicotine? No [email or web address] Information not available 01/09/2025 What is your level of alcohol consumption? None Information not available 12/14/2024 What is your exercise level? None [email or web address] Information not available 12/14/2024 Mental Status Question Answer Note LastModified by Organization D etails LastModified Time Do you feel stressed (tense, restless, nervous, or anxious, or unable to sleep at night)? [id number] [email or web address] Information not available 12/14/2024 Family History Nothing Reported. Medical History Condition Response Rheumatoid Arthritis Y Ear or Hearing Problems Y Diabetes Y Congestive Heart Failure (CHF) Y Immunizations Vaccine Type Date Status Note Provider Nam e and Address Organization Details Recorded Time Influenza, adjuvanted, trivalent, PF 4 completed Liz Abel null, [place] - [facility] & [place] 01/09/2025 14:43:03 Influenza, adjuvanted, quadrivalent, PF 3 completed Liz Abel null, [place] - [facility] & [place] 01/09/2025 14:43:03 Influenza, adjuvanted, quadrivalent, PF 2 completed Liz feng, [place] - [facility] & [place] 01/09/2025 14:43:03 COVID-19, mRNA, LNP-S, PF, 100 mcg/0.5mL dose or 50 mcg/0.25mL dose 1 completed Liz feng[place] - [facility] & [place] 01/09/2025 14:43:03 COVID-19, mRNA, LNP-S, PF, 100 mcg/0.5mL dose or 50 mcg/0.25mL dose 1 completed Liz feng, [place] - [facility] & [place] 01/09/2025 14:43:03 Pneumococcal conjugate PCV 13 9 completed Liz feng, SARAH - [facility] - [place] & [place] 01/09/2025 14:43:03 Influenza, high-dose, trivalent, PF 0 completed Liz feng, SARAH - [facility] - [place] & [place] 01/09/2025 14:43:03 Influenza, high-dose, trivalent, PF 9 completed Liz feng, SARAH - [facility] - [place] & [place] 01/09/2025 14:43:03 Past Encounters Encounter ID Performer Location Encounter Start Date Encounter Closed Date Diagnosis/Indication Diagnosis SNOMED-CT Code Diagnosis ICD10 Code Diagnosis Note [id number] LUZ LARSEN [facility] [place] [id number] [facility] [place] [id number] 07/21/2023 11:11:29 07/21/2023 11:12:17 Sensorineural hearing loss 83058569 H90.5 [id number] LUZ LARSEN [facility] [place] [id number] [facility] [place] [id number] 01/05/2024 11:01:09 01/05/2024 11:01:59 Sensorineural hearing loss 28372568 H90.5 [id number] Chad Snowden MD [facility] Oncology and Hematolog y [address] [place] [address] 12/14/2024 13:43:12 12/14/2024 13:48:52 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 History of malignant neoplasm of rectum 671558053 Z85.048 Patient with prior history of rectal cancer. Treated previously with radiation therapy. [id number] Chad Snowden MD [facility] Oncology and Hematolog y [address] [place] [address] 01/09/2025 14:35:22 01/09/2025 15:11:08 Primary squamous cell carcinoma of parotid gland 299412789 C07 radical resection of the left neck [...] follow-up History of malignant neoplasm of rectum 432355351 Z85.048 Patient with prior history of rectal cancer. Treated previously with radiation therapy. Health Concerns Section Related Observation LastModified by Organization Detai ls LastModified Time None Recorded Concern Status LastModified by Organization Details LastModified Time None Recorded Advance Directives Directive Y: Payers Insurance Date Sequence Insurance Name Policy Number Policy Graff Covered Member ID Graff Member ID Guarantor Name 12/06/2024 3 [employer] [place] (MEDICAID REPLACEMENT - HMO) Gage Paulson [id number] Gage Paulson 01/09/2025 3 [employer] (MEDICARE REPLACEMENT/AD VANTAGE - PPO) Gage Paulson [id number] Gage Paulson 03/21/2025 2 [facility] ([place]ICAID REPLAC[place] - HMO) [facility] Gage Paulson [id number] Gage Paulson 03/21/2025 1 [employer] (MEDICARE REPLACEMENT/AD VANTAGE - HMO) Gage Paulson [id number] Gage Paulson 12/06/2024 2 MEDICAID-[facility] HEALTH CHOICES - FFS/TRADITIONA L Gage Paulson [id number] Gage Paulson 01/13/2025 3 [place] BCBS OF [facility] MEDIBLUE PLUS (MEDICARE REPLACEMENT HMO) [id number] Gage Evy Paulson [id number] Gage Paulson Notes Date Note Type Note Provider Name and Address Organization Details Recorded Time 07/21/2023 text/html Patient was seen today for a hearing aid service. Cleaned and adjusted hearing aids this date. CHELITA GARRIDO, LUZ [address] , [place], [address], [facility] - [place] & [place] 07/21/2023 11:13:01 01/05/2024 text/html Patient was seen today for a hearing aid service. Cleaned and adjusted hearing aids this date. LUZ LARSEN [address], [place], [address], [place] - [facility] & [place] 01/05/2024 11:02:54 12/14/2024 text/html 78 yo M presents for evaluation of squamous cell carcinoma of the parotid gland. 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 Patient recently seen at [facility] on November [...] radiation only. Will follow-up Chad Snowden MD [address], [place], [address], [place] - [facility] - [place] & [place] 01/09/2025 15:24:24
--- OUTSIDE RECORDS SUMMARY | 2025-06-01 10:42 | XMS_ITS | Encounter Summary ---
Author Organization Healthcare Address [address] [place] [address] Care Team Providers Care Water Supply Technician Name Role Phone Chip Zamarripa MD Primary Care Provider + [phone] Sweta Abebe RN Unavailable Unavailable Encounter Details Date Type Department Care Team ([facility] st Contact Info) Description 04/11/2025 Telephone Pav CC Head, Neck & Respiratory [address] [facility], 2nd [place] [address] Mynor Aguiar MD 800 [facility] [address]nd [place] [address] Social History Tobacco Use Types Packs/Day Years [...] drink first t edel in the morning (EYE-SOFTWARE ASSET MANAGER) to steady your nerves or to [...] documented as of this encounter Care Teams Water Supply Technician Relationship Specialty Start Date End Date Chip Zamarripa MD [address] [place] [address] PCP - General 03/22/21 Sweta Abebe, RN Registered Nurse Hematology and Oncology 02/22/25 documented as of this encounter
--- OUTSIDE RECORDS SUMMARY | 2025-06-01 10:42 | XMS_ITS | Referral Summary ---
Author Organization [employer] ([place], [place], [place], [place]) Address [address] [place] [address] Care Team Providers Care Automotive Internet Sales Manager Name Role Phone Unavailable Primary Care Provider [...]
--- OUTSIDE RECORDS SUMMARY | 2025-06-01 10:42 | XMS_ITS | Clinical Summary ---
Author Organization [email or web address] ([place], [place], [place], [place]) Address [address] [place] [address] Care Team Providers Care Scale And Skip Car Operator Name Role Phone Unavailable Primary Care Provider [...]
--- OUTSIDE RECORDS SUMMARY | 2025-06-01 10:42 | XMS_ITS | Clinical Summary ---
Author Organization [facility] Address [address] [place] [address] Care Team Providers Care Winding Inspector And Tester Name Role Phone Chip Zamarripa MD Primary Care Provider + [phone] Sweta Abebe RN Unavailable Unavailable Allergies No [...] by mouth every 8 (eight) hours. Under [place] law, monthly prescriptions (30 days) can be [...] FOR insomnia 01/25/20 25 Active HYDROcodone-acetam inophen ([place]) 5-325 MG tablet Take 1 tablet by [...] edelmira 06/09/2024 Atherosclerotic heart diseas e of [place] coronary artery without angina pectoris 04/05/2024 Disorder of the skin and subcutaneous tissue, un specified 04/05/2024 Sensorineural hearing loss 07/21/2023 Benign essential hypertension 12/13/2020 CKD (chronic kidney disease) stage 3, GFR 30-59 ml/min 12/13/2020 Diabetes mellitus, type 2 12/12/2020 Microalbuminuria 11/22/2020 Encounters Date Type Department Care Team Description 04/11/2025 Telephone Pav CC Head, Neck & Respiratory 800 [facility], [address] [place] [address] Mynor Aguiar MD 03/17/2025 Telephone Pav CC Head, Neck & Respiratory [address] [facility], [address] [place] [address] Mynor Aguiar MD 03/16/2025 Telephone Pav CC Head, Neck & Respiratory [address] [facility], [address] [place] [address] Mynor Aguiar MD from Last 3 Months Family History Medical [...] drink first t edel in the morning (EYE-AMBULATORY CARE) to steady your nerves or to get [...] A1C 09/15/1944 [facility]-Medicare Annual Wellness (AWV) 09/15/1944 [facility]-/Child/Adol SDOH Screenings 09/16/1944 Diabetes: Dental Exam 09/15/1954 [facility]- SDOH Screenings 09/15/1962 [facility]-Adult SDOH Screenings 09/15/1962 [facility]-DTaP,Tdap,and Td Vaccines (1 - Tdap) 09/15/1963 [facility]-Zoster Vaccines (1 of 2) 09/15/1963 [facility]-Pneumococcal Vaccine: 50+ Years (2 of 2 - PPSV23) 09/06/2019 07/12/2019 [facility]-RSV Vaccine: 60+ Years or (1 - 1-dose 75+ series) 09/15/2019 [id number] Vaccine (3 - Moderna risk series) 02/13/2021 [...] on patient's age to complete this topic Insurance [facility] MEDICAID [employer] MEDICARE Advance Directives Documents on File Type Date Recorded 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 Yes Care Teams Winding Inspector And Tester Relationship Specialty Start Date End Date Chip Zamarripa MD [address] [place] [address] PCP - General 03/22/21 Sweta Abebe, RN Registered Nurse Hematology and Oncology 02/22/25
[2025-06-01 10:59] LABS: Hematocrit 40.0 % (42.0-52.0); Hemoglobin 13.5 g/dL (14.1-18.0); Immature Granulocytes % 1.1 %; Mean Corpuscular HGB Conc 33.8 g/dL (31.8-35.4); Mean Corpuscular Hemoglobin 29.6 pg (27.0-31.2); Mean Corpuscular Volume 87.7 fl (80-94); Nucleated Red Blood Cells % 0 %; Platelet Count 281 K/mm3 (142-424); Red Blood Count 4.56 M/mm3 (4.60-6.20); Red Cell Distribution Width-SD 43.7 fL; White Blood Count 6.5 K/mm3 (4.8-10.8)
[2025-06-01 11:14] LABS: Alanine Aminotransferase 12 U/L (12-78); Albumin Level 3.9 g/dl (3.5-5.0); Albumin/Globulin Ratio 1.6 (1.1-1.8); Alkaline Phosphatase 101 U/L (38-126); Anion Gap 9.2 mEq/L (5-15); Aspartate Amino Transferase 22 U/L (17-59); Bilirubin,Total 0.5 mg/dl (0.2-1.3); Blood Urea Nitrogen 27 mg/dl (9-20); Calcium 9.3 mg/dl (8.4-10.2); Carbon Dioxide 30 mmol/L (22.0-30.0); Chloride 103 mmol/L (98-107); Creatinine,Serum 1.20 mg/dl (0.66-1.25); Estimated Glomerular Filt Rate 58 ml/min (>60); GFR (African American) 70 ML/MIN (>60); Globulin 2.4 g/dL (1.3-3.2); Glucose 176 mg/dl (74-100); Potassium 3.2 mmoL/L (3.5-5.1); Sodium 139 mmol/L (136-145); Total Protein,Serum 6.3 g/dl (6.3-8.2)
[2025-06-01 11:45] LABS: Thyroid Stimulating Hormone 3.88 uIU/mL (0.465-4.68)
== END 2025-06-01 12:05 | disposition home or self-care (01) ==
LOC: INF 10:36
PROVIDERS: PCP Family Medicine; Visit Provider Internal Medicine Medical Oncology
DX: C44.92 Squamous cell carcinoma of skin, unspecified (principal)
CPT/HCPCS: 36415; 80053; 84443; 85025

== ENCOUNTER 2025-07-27 16:32 | Outpatient (CLI) | payer MEDICARE, OTHER, SELFPAY ==
[2025-07-27 19:52] LABS: Hematocrit 41.2 % (42.0-52.0); Hemoglobin 13.1 g/dL (14.1-18.0); Immature Granulocytes % 1.3 %; Mean Corpuscular HGB Conc 31.8 g/dL (31.8-35.4); Mean Corpuscular Hemoglobin 28.7 pg (27.0-31.2); Mean Corpuscular Volume 90.2 fl (80-94); Nucleated Red Blood Cells % 0 %; Platelet Count 418 K/mm3 (142-424); Red Blood Count 4.57 M/mm3 (4.60-6.20); Red Cell Distribution Width-SD 43.9 fL; White Blood Count 12.6 K/mm3 (4.8-10.8)
[2025-07-27 20:53] LABS: Albumin Level 4.0 g/dl (3.5-5.0); Chloride 92 mmol/L (98-107); Sodium 137 mmol/L (136-145)
[2025-07-27 20:54] LABS: Potassium 3.7 mmoL/L (3.5-5.1)
[2025-07-27 20:56] LABS: Alanine Aminotransferase 8 U/L (12-78); Albumin/Globulin Ratio 1.7 (1.1-1.8); Alkaline Phosphatase 89 U/L (38-126); Anion Gap 16.7 mEq/L (5-15); Aspartate Amino Transferase 16 U/L (17-59); Bilirubin,Total 0.6 mg/dl (0.2-1.3); Blood Urea Nitrogen 25 mg/dl (9-20); Carbon Dioxide 32 mmol/L (22.0-30.0); Creatinine,Serum 1.20 mg/dl (0.66-1.25); Estimated Glomerular Filt Rate 58 ml/min (>60); GFR (African American) 70 ML/MIN (>60); Globulin 2.4 g/dL (1.3-3.2); Total Protein,Serum 6.4 g/dl (6.3-8.2)
[2025-07-27 20:57] LABS: Calcium 9.1 mg/dl (8.4-10.2); Glucose 280 mg/dl (74-100)
[2025-07-27 21:05] LABS: Free T4 (Free Thyroxine) 1.22 ng/dl (0.78-2.19)
[2025-07-27 21:27] LABS: Thyroid Stimulating Hormone 5.27 uIU/mL (0.465-4.68)
--- OUTSIDE RECORDS SUMMARY | 2025-07-28 13:35 | XMS_ITS | Clinical Summary ---
Author Organization [facility] Address [address] [place] [address] Care Team Providers Care Network Systems Administrator Name Role Phone Chip Zamarripa MD Primary Care Provider + [phone] Sweta Abebe RN Unavailable Unavailable Allergies No [...] by mouth every 8 (eight) hours. Under [place] law, monthly prescriptions (30 days) can be [...] FOR insomnia 01/25/20 25 Active HYDROcodone-acetam inophen ([place]) 5-325 MG tablet Take 1 tablet by [...] edelmira 06/09/2024 Atherosclerotic heart diseas e of [place] coronary artery without angina pectoris 04/05/2024 Disorder of the skin and subcutaneous tissue, un specified 04/05/2024 Sensorineural hearing loss 07/21/2023 Benign essential hypertension 12/13/2020 CKD (chronic kidney disease) stage 3, GFR 30-59 ml/min 12/13/2020 Diabetes mellitus, type 2 12/12/2020 Microalbuminuria 11/22/2020 Family History Medical History Relation Name Comments [...] drink first t edel in the morning (EYE-EVALUATOR TRANSFER STUDENTS) to steady your nerves or to get [...] Vaccine: 50+ Years (2 of 2 - PPSV23, PCV20, or PCV21) 09/06/2019 07/12/2019 [facility]-RSV Vaccine: 60+ Years or (1 - 1-dose 75+ series) 09/15/2019 [id number] Vaccine (3 - Moderna risk series) 02/13/2021 [...] patient's age to complete this topic Insurance [facility] MEDICAID [facility] MEDICARE Advance Directives Documents on File Type Date Recorded 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 Yes Care Teams Network Systems Administrator Relationship Specialty Start Date End Date Chip Zamarripa MD [address] [place] [address] PCP - General 03/22/21 Sweta Abebe, RN Registered Nurse Hematology and Oncology 02/22/25
== END 2025-07-27 23:59 | disposition home or self-care (01) ==
LOC: LAB.DROPOF 07-28 13:33
PROVIDERS: PCP Family Medicine; Visit Provider Family Medicine
DX: C44.92 Squamous cell carcinoma of skin, unspecified (principal); E11.9 Type 2 diabetes mellitus without complications; E03.9 Hypothyroidism, unspecified
CPT/HCPCS: 80053; 84439; 84443; 85025